=== PATIENT | male | born 1960 | race Caucasian/White ===

== ENCOUNTER 2016-05-22 19:16 | Emergency (ER) | payer OTHER ==
[2016-05-22 19:23] VITALS: BP 170/82; TEMP 98.8; BMI 23.6
[2016-05-22] MEDS ORDERED: TORADOL IM STA (20:02)
--- NOTE | 2016-05-22 20:05 | ED.PDOC ---
General ED Provider: Dr. KURT VENCES Chief Complaint: Foot Pain/Injury Stated Complaint: Been hurting in the right foot for couple days, 3 toe has open wound for 2 months. has pain and swelling in the foot today Time Seen by Physician: 20:03 Mode of Arrival: Walk-In Information Source: [facility] Documentation Reviewed and Agree: Yes Musculoskeletal Complaint Exam - Ankle/Foot Complaint/Exam Location of Injury: Reports: Right, Foot Symptoms Are: Reports: Still present Onset of Pain: Reports: Hours Initial Severity: Moderate Current Severity: Mild Location: Reports: Discrete Character: Reports: Aching, Throbbing Alleviating: Reports: Rest Aggravating: Reports: Movement, Weight bearing Able to Bear Weight: Yes Associated Signs and Symptoms: Reports: Swelling, Redness Gout Risk Factors: Reports: None Lower Extremity Findings: Present: Swelling. Absent: Abnormal contour Achilles Tendon Abnormality: No Limited Range of Motion: Present: Inversion, Eversion Differential Diagnosis: Cellulitis, Closed Fracture, Gout, Sprain Review of Systems - Review Of Systems Constitutional: Reports: No symptoms Eyes: Reports: No symptoms Ears, Nose, Mouth, Throat: Reports: No symptoms Respiratory: Reports: No symptoms Cardiac: Reports: No symptoms GI: Reports: No symptoms : Reports: No symptoms Musculoskeletal: Reports: Joint pain, Joint swelling Skin: Reports: No symptoms Neurological: Reports: No symptoms Endocrine: Reports: No symptoms Hematologic/Lymphatic: Reports: No symptoms All Other Systems: Reviewed and Negative Past Medical History - Past Medical History Previously Healthy: Yes Endocrine: Reports: DM 2, Dyslipidemia Cardiovascular: Reports: Hypertension Respiratory: Reports: None Hematological: Reports: None Gastrointestinal: Reports: None Genitourinary: Reports: None Neuro/Psych: Reports: None Musculoskeletal: Reports: Back Pain, Joint Pain Cancer: Reports: None - Surgical History General Surgical History: Reports: Unknown - Family History Family History: Reports: Unknown - Social History Smoking Status: Current every day smoker, Heavy tobacco smoker Smoking Cessation Counseling Time: > 3 min - 10 min Hx Substance Use: No Alcohol Screening: None - Immunizations Tetanus Shot up to Date: Yes Physical Exam - Physical Exam Appearance: Well-appearing Eyes: YASMEEN, EOMI, Conjunctiva clear ENT: Ears normal, Nose normal, Oropharynx normal Respiratory: Airway patent, Breath sounds clear, Breath sounds equal, Respirations nonlabored Cardiovascular: RRR, Pulses normal, No rub, No murmur GI/: Soft, Nontender, No masses, Bowel sounds normal, No Organomegaly Musculoskeletal: Limited strength, Edema Skin: Warm, Dry, Normal color Neurological: Sensation intact, Motor intact, Reflexes intact, Cranial nerves intact, Alert, Oriented Psychiatric: Affect appropriate, Mood appropriate Interpretation - Radiology Interpretation Radiology Interpretation By: ED Physician Radiology Results: Negative Critical Care Note - Critical Care Note Total Time (mins): 0 Course - Course Hematology/Chemistry: 05/22/16 20:15 05/22/16 20:15 Orders, Labs, Meds: Lab Review 05/22/16 20:15 WBC 10.39 H RBC 4.57 L Hgb 13.6 L Hct 39.8 L MCV 87.1 MCH 29.8 MCHC 34.2 RDW Coeff of Zay 12.8 Plt Count 221 Immature Gran % (Auto) 0.3 Neut % (Auto) 48.4 Lymph % (Auto) 42.3 [place] % (Auto) 6.2 Eos % (Auto) 2.4 Baso % (Auto) 0.4 Immature Gran # (Auto) 0.0 Neut # 5.0 Lymph # 4.4 H [place] # 0.6 Eos # 0.3 Baso # 0.0 Sodium 132 L Potassium 4.1 Chloride 99 Carbon Dioxide 26 Anion Gap 11.1 BUN 10 Creatinine 0.93 Estimated GFR (MDRD) 85.00 BUN/Creatinine Ratio 10.75 Glucose 228 H Uric Acid 5.1 Calcium 9.3 Total Bilirubin 0.32 AST 13 L ALT 13 Alkaline Phosphatase 91 Total Protein 7.0 Albumin 3.5 Globulin 3.5 Albumin/Globulin Ratio 1.00 Orders Category Date Time Status CBC W/ AUTO DIFF Stat LAB 05/22/16 20:15 Completed COMPREHENSIVE METABOLIC PANEL Stat LAB 05/22/16 20:15 Completed URIC ACID Stat LAB 05/22/16 20:15 Completed Ketorolac Tromethamine [Toradol] MEDS 05/22/16 20:02 Discontinued 60 mg IM ONCE STA FOOT, RIGHT 3 VIEWS Stat RADS 05/22/16 20:02 Taken Medications Discontinued Medications Generic Name Dose Route Start Last Admin Trade Name Freq PRN Reason Stop Dose Admin Ketorolac Tromethamine 60 mg 05/22/16 20:02 05/22/16 20:12 Toradol IM 05/22/16 20:03 60 mg ONCE STA Administration Vital Signs: Temp Pulse Resp BP Pulse Ox 05/22/16 19:17 98.8 F 79 20 170/82 H 96 Departure - Departure Time of Disposition: 21:42 Disposition: HOME SELF-CARE Discharge Problem: Cellulitis Qualifiers: Site of cellulitis: extremity Site of cellulitis of extremity: lower extremity Laterality: right Qualifier Code: (L03.115) Cellulitis of right lower limb Instructions: Cellulitis (ED) Condition: Stable Pt referred to PMD for follow-up: Yes Additional Instructions: pulse feeble in rt Patricia NEWSOME,RN checked with Doppler, fOOT not warm to touch, Toradol helped with pain Explained about the need to follow up with Vascular surgeon, ( he has with Dr Barragan) RISK OF OSTEOMYELITIS AND AMPUTATION DISCUSSED ADVISED TO QUITE SMOKING Allergies/Adverse Reactions: Allergies sitagliptin phosphate [From Januvia] Allergy (Intermediate, Unverified 04/28/16 12:34) Causes weakness Home Medications: Ambulatory Orders Atorvastatin Calcium [Lipitor] 10 mg PO BEDTIME 04/17/16 Blood-Glucose Meter [Contour Next] 1 each QID #1 kt 04/28/16 Aspirin [Aspirin EC] 81 mg PO DAILYWM 05/22/16 Disposition Discussed With: Patient
[2016-05-22 20:15] LABS: BASOPHILS % (AUTO) 0.4 % (0.0-3.0); EOSINOPHILS # (AUTO) 0.3 K/ul (0.0-0.7); EOSINOPHILS % (AUTO) 2.4 % (0.0-7.0); HEMATOCRIT 39.8 % (42.0-52.0); HEMOGLOBIN 13.6 g/dl (14.0-18.0); IMMATURE GRANULOCYTE % (AUTO) 0.3 % (0.0-5.0); LYMPHOCYTES # (AUTO) 4.4 K/uL (0.60-3.4); LYMPHOCYTES % (AUTO) 42.3 (10.0-50.0); MEAN CORPUSCULAR HEMOGLOBIN 29.8 pg (27.0-31.0); MEAN CORPUSCULAR HGB CONC 34.2 (31.8-35.4); MEAN CORPUSCULAR VOLUME 87.1 fl (80.0-94.0); MONOCYTES # (AUTO) 0.6 K/uL (0.4-2.0); MONOCYTES % (AUTO) 6.2 (0-10); NEUTROPHILS % (AUTO) 48.4; PLATELET COUNT 221 10^3/uL (140-440); RED BLOOD COUNT 4.57 10^6/ul (4.70-6.10); WHITE BLOOD COUNT 10.39 K/ul (4.2-10.2)
[2016-05-22 20:38] LABS: ALBUMIN 3.5 g/dL (3.4-5.0); ANION GAP 11.1; BILIRUBIN,TOTAL 0.32 mg/dL (0.00-1.20); BUN/CREATININE RATIO 10.75; CALCIUM 9.3 mg/dL (8.2-10.2); CREATININE 0.93 mg/dL (0.60-1.10); POTASSIUM 4.1 mmol/L (3.5-5.1); URIC ACID 5.1 mg/dL (2.6-7.2)
[2016-05-22] MEDS ORDERED: CLEOCIN PO STA (21:39)
--- NOTE | 2016-05-22 22:36 | DI ---
EXAM: Right foot three view HISTORY: Right foot pain COMPARISON: None FINDINGS: No fracture dislocation. Small plantar calcaneal spur. The joints are normal. No focal s oft tissue abnormality. IMPERSSION: 1. No fracture or dislocation. 2. Small plantar calcaneal spur.
== END 2016-05-22 21:50 | disposition home or self-care (01) ==
LOC: ED 19:16
DX: L03.115 Cellulitis of right lower limb (principal); I10 Essential (primary) hypertension; E11.9 Type 2 diabetes mellitus without complications; E78.5 Hyperlipidemia, unspecified; F17.210 Nicotine dependence, cigarettes, uncomplicated; Z79.899 Other long term (current) drug therapy
CPT/HCPCS: 36415; 80053; 84550; 85025; 96372; 99283

== ENCOUNTER 2016-07-07 08:56 | Outpatient (CLI) ==
[2016-07-07 09:25] LABS: BASOPHILS # (AUTO) 0.1 K/uL (0-0.2); BASOPHILS % (AUTO) 0.5 % (0.0-3.0); EOSINOPHILS # (AUTO) 0.2 K/ul (0.0-0.7); EOSINOPHILS % (AUTO) 2.3 % (0.0-7.0); HEMATOCRIT 41.3 % (42.0-52.0); HEMOGLOBIN 14.5 g/dl (14.0-18.0); IMMATURE GRANULOCYTE % (AUTO) 0.2 % (0.0-5.0); LYMPHOCYTES # (AUTO) 2.9 K/uL (0.60-3.4); LYMPHOCYTES % (AUTO) 30.8 (10.0-50.0); MEAN CORPUSCULAR HEMOGLOBIN 30.5 pg (27.0-31.0); MEAN CORPUSCULAR HGB CONC 35.1 (31.8-35.4); MEAN CORPUSCULAR VOLUME 86.8 fl (80.0-94.0); MONOCYTES # (AUTO) 0.5 K/uL (0.4-2.0); NEUTROPHILS # (AUTO) 5.8 K/ul (2.0-6.9); NEUTROPHILS % (AUTO) 61.2; PLATELET COUNT 188 10^3/uL (140-440); RED BLOOD COUNT 4.76 10^6/ul (4.70-6.10); WHITE BLOOD COUNT 9.44 K/ul (4.2-10.2)
[2016-07-07 09:35] LABS: BILIRUBIN,URINE Negative (NEGATIVE); KETONES,URINE Negative (NEGATIVE); LEUKOCYTE ESTERASE ,URINE Negative (NEGATIVE); NITRITE,URINE Negative (NEGATIVE); PH,URINE 5.5 (5-9); PROTEIN,URINE Negative (NEGATIVE); URINE, BLOOD 2+ (NEGATIVE)
[2016-07-07 09:36] LABS: ADD URINE MICROSCOPIC YES
[2016-07-07 09:45] LABS: ALBUMIN 3.6 g/dL (3.4-5.0); ALBUMIN/GLOBULIN RATIO 1.03; ANION GAP 14.5; BILIRUBIN,TOTAL 0.34 mg/dL (0.00-1.20); BUN/CREATININE RATIO 12.38; CALCIUM 9.2 mg/dL (8.2-10.2); CHOL/HDL RATIO 5.2 (4.5-6.4); CREATININE 1.05 mg/dL (0.60-1.10); POTASSIUM 4.5 mmol/L (3.5-5.1); TOTAL PROTEIN 7.1 g/dL (6.4-8.2)
== END 2016-07-07 08:57 | disposition home or self-care (01) ==
LOC: LAB 08:56
PROVIDERS: ATTEND General Practice
DX: E11.9 Type 2 diabetes mellitus without complications (principal); I10 Essential (primary) hypertension; E78.5 Hyperlipidemia, unspecified; F32.9 Major depressive disorder, single episode, unspecified; I25.10 Atherosclerotic heart disease of native coronary artery without angina pectoris; M89.9 Disorder of bone, unspecified; Z79.899 Other long term (current) drug therapy
CPT/HCPCS: 36415; 80053; 80061; 81001; 83036; 85025

== ENCOUNTER 2016-08-07 11:00 | Outpatient (RCR) ==
--- NOTE | 2016-07-26 11:57 | RS.OPPTEV2 ---
Date of Note: 07/26/16 Visit #: 1 Date of Evaluation: 07/26/16 Date of Onset/Injury/Change in Status: 05/14/16 Surgery Performed?: No Treatment Diagnosis: Back pain History of Condition/Mechanism of Injury:: Pt has had back problems for years and it has been worse and worse over time. He is diabled and states he fell 7' at a job he had in 1988 and that was when his problems began. He states now that his legs are painful and weak and he falls at least twice a day. He was referred to a neurosurgeon and MRI revealed numerous levels of disc bulging and stenosis throughout his spine. He has been referred to PT by the surgeon for evaluation and treatment. Prior Level of Function.....Patient was independent with: ADL's, Self Care, Work /Vocation, Caregiving, Ambulation/Mobility, Community Integration/Access Functional Limitations: Sleep, Self Care, ADL's, Reaching, Pushing, Pulling, Lifting, Carrying, Sitting, Standing, Bending, Squatting, Ambulation, Community Access/Integration Treatment Side (optional): Bilateral Medical History Medical History: Hypertension, Diabetes Surgical History: Cholecystectomy, Other Surgical History Comments:: Extensive vascular surgery 2 months ago of B illiac arteries and RLEs Hx Home Medications: [place] 7.5, ibuprofen, metformin,lipitor, finished steroid pack just finished 3 days ago and now he is on a med he believes in an anti- inflammatory. Pain Assessment - Pain Description Pain Location: Entire spine. Focus on lumbar spine for treatment. Pain Description: Constant pain throughout his spine. Current Pain Intensity: 7/10 Worst Pain Intensity: 10+/10 Other Comments regarding Pain:: Pt reports he feels his muscles are tearing apart in his legs R > L. He still has vascular pain as well and it is difficulty to discern where his pain is originating from the back or vascular system. Functional Outcome Measure Oswestry LBP: 33 (66% disability) - G Codes & Severity Modifier G Codes & Modifier: Mobility, Walking & Moving Around. Eval - CL. Goal - CK Source of G Code score: Oswestry LBP Scale Observation - Observation Posture: Decreased Lumbar Lordosis Gait - Gait Pattern General Gait Pattern Observation: Antalgic Gait, Decrease Weight Bear (R), Decrease Weight Shift (R), Short Stance Time (R) Gait Comments: RLE gives way intermitttently due to neuromuscular weakness. General Muscle Strength: RLE strength 3+ to 4-/5 and LLE 4/5 - ROM Lumbar Flexion: Hand reach to Mid-Thighs Sidebending to Left: Reach to Mid-thigh Sidebending to Right: Reach to Mid-thigh Lumbar Spine ROM Limitations: Pain Palpation Palpation Findings: Tenderness (Bilateral paraspinals very tight and painful to minimal palpation.) Sensation - Sensation Right Lower Extremity: Impaired Left Lower Extremity: Impaired Sensation Description: [place] Balance - Standing Balance Static Standing Balance: Normal Dynamic Standing Balance: Fair (RLE gives way due to neuromuscular weakness.) Interventions - Exercise/Activities/Manual Therapy Exercises/Activities: na Manual Therapy: na - Charges Total Direct Minutes: 45 Total Treatment Time: 45 Procedures billed for this date of service:: ALIDA Lin (High) Assessment Assessment: Chronic spine pain with lower back the greatest. He has constant pain, decreased sensation, BLE strength R > L, decreased ROM of spine and BLEs, frequent falls, difficulty with all ADLs and multiple gt deficits. Patient Education: Education of diagnosis, Body/Joint mechanics, Activity Modification (Pt was instructed to avoid bending, lifting or twisting and to stop activities increasing pain.), Education of Plan of Care Short Term Goals Goal #1: LBP intermittent Goal to be met by: 08/11/16 Goal #2: Improve sleep habits by 25% due to decreased pain. Goal to be met by: 08/11/16 Goal #3: Average LBP rating 4-5/10 Goal to be met by: 08/11/16 Goal #4: Independent in basic HEP. Goal to be met by: 08/11/16 Half-Way Goals Goal #1: BLE strength 4+ - 5/5 Goal to be met by: 09/01/16 Goal #2: Sleep has improved 50% at least. Goal to be met by: 09/01/16 Goal #3: Eliminate falling due to RLE weakness. 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
--- NOTE | 2016-07-27 11:06 | RS.OPPTDN ---
Subjective Date of Note: 07/27/16 Visit #: 2 Date of Evaluation: 07/26/16 Treatment Diagnosis: Back pain Current Subjective/complaints:: Reports pain in back and both legs,but more in the R LE ,as opposed to the L. Pain Assessment - Pain Description Pain Location: Entire spine. Focus on lumbar spine for treatment. Pain Description: Radiating, Aching Pain Description: Constant pain throughout his spine. Current Pain Intensity: 6/10 - Treatment Modality: Electrical Stim Unattended Parameters/Method Applied: 20 mins. high volt to lumbar area,channel 1 @120 pv, channel 2 @ 150 pv. Patient Position: Supine - Heat/Cryotherapy Treatment: Hot Pack (concurrent with e-stim) Interventions - Exercise/Activities/Manual Therapy Exercises/Activities: 20 mins. SKTC,DKTC,pelvic tilts,LTR,hamstring stretches. Total minutes of Exercise: 20 Manual Therapy: na Total minutes of Manual Therapy: 0 HOME EXERCISE PROGRAM: SKTC,DKTC,LTR,hamstring stretches,pelvic tilts in PAIN FREE ROM. - Charges Total Direct Minutes: 20 Total Treatment Time: 40 Procedures billed for this date of service:: hp,e-stim,ex 1 Assessment: Patient guarded due to pain today.He has excessively tight hamstrings bilaterally.He tolerates slow,guarded LTR and SKTC.He is very attentive ,motivated to improve. Patient Education: Education of diagnosis, Body/Joint mechanics, Home Exercise Program, Home Safety, Activity Modification, Education of Plan of Care Short Term Goals Goal #1: LBP intermittent Goal to be met by: 08/11/16 Goal #2: Improve sleep habits by 25% due to decreased pain. Goal to be met by: 08/11/16 Goal #3: Average LBP rating 4-5/10 Goal to be met by: 08/11/16 Goal #4: Independent in basic HEP. Goal to be met by: 08/11/16 Progress towards Goal:: Progressing [place] Goals Goal #1: BLE strength 4+ - 5/5 Goal to be met by: 09/01/16 Goal #2: Sleep has improved 50% at least. Goal to be met by: 09/01/16 Goal #3: Eliminate falling due to RLE weakness. Goal to be met by: 09/01/16 Goal #4: Oswestry LBP score 20 Goal to be met by: 09/01/16 Plan PLAN OF CARE EXPIRES ON:: 09/01/16 ORDER # VISITS AND/OR THROUGH DATE: 09/01/2016 PLAN: Continue Plan of Care
--- NOTE | 2016-08-04 11:16 | RS.OPPTDN ---
Subjective Date of Note: 08/04/16 Visit #: 3 Date of Evaluation: 07/26/16 Treatment Diagnosis: Back pain Current Subjective/complaints:: Patient reports the R leg pain is down the entire leg into the foot today,has antalgic gait entering clinic. Pain Assessment - Pain Description Pain Location: Entire spine. Focus on lumbar spine for treatment. Pain Description: Radiating, Aching Pain Description: Constant pain throughout his spine. Current Pain Intensity: 7/10 - Treatment Modality: Electrical Stim Unattended Parameters/Method Applied: 20 mins. high volt to lumbar,channel 1 and 2 # 145pv. Patient Position: Supine - Heat/Cryotherapy Treatment: Hot Pack (concurrent with e-stim) Interventions - Exercise/Activities/Manual Therapy Exercises/Activities: 20 mins. SKTC,DKTC,pelvic tilts,LTR,hamstring stretches.HEP review/body mechanics. Total minutes of Exercise: 20 Manual Therapy: na Total minutes of Manual Therapy: 0 HOME EXERCISE PROGRAM: SKTC,DKTC,LTR,hamstring stretches,pelvic tilts in PAIN FREE ROM. - Charges Total Direct Minutes: 20 Total Treatment Time: 40 Procedures billed for this date of service:: hp,e-stim,ex 1 Assessment: Patient has moderate bilateral hamstring tightness,R > L,but does respond better to stretches today.He has less antalgic gait exiting clinic.He is attentive and motivated to improve. Patient Education: Education of diagnosis, Body/Joint mechanics, Home Exercise Program, Home Safety, Activity Modification, Education of Plan of Care Short Term Goals Goal #1: LBP intermittent Goal to be met by: 08/11/16 (constant today) Progress towards Goal:: No Change Goal #2: Improve sleep habits by 25% due to decreased pain. Goal to be met by: 08/11/16 Goal #3: Average LBP rating 4-5/10 Goal to be met by: 08/11/16 Progress towards Goal:: No Change Goal #4: Independent in basic HEP. Goal to be met by: 08/11/16 Progress towards Goal:: Progressing [facility] Goals Goal #1: BLE strength 4+ - 5/5 Goal to be met by: 09/01/16 Goal #2: Sleep has improved 50% at least. Goal to be met by: 09/01/16 Goal #3: Eliminate falling due to RLE weakness. Goal to be met by: 09/01/16 Progress towards goal: Progressing Goal #4: Oswestry LBP score 20 Goal to be met by: 09/01/16 Plan PLAN OF CARE EXPIRES ON:: 09/01/16 ORDER # VISITS AND/OR THROUGH DATE: 09/01/2016 PLAN: Continue Plan of Care
--- NOTE | 2016-08-07 12:02 | RS.OPPTDN ---
Subjective Date of Note: 08/07/16 Visit #: 4 Date of Evaluation: 07/26/16 Treatment Diagnosis: Back pain Current Subjective/complaints:: Reports his back feels better today,is doing his stretches. Pain Assessment - Pain Description Pain Description: Radiating, Dull, Aching Pain Description: Constant pain throughout his spine. Current Pain Intensity: 5.5/10 - Treatment Modality: Electrical Stim Unattended Parameters/Method Applied: 20 mins. high volt to lumbar,channel 1 @ 115 pv, channel 2 @ 150 pv. Patient Position: Supine - Heat/Cryotherapy Treatment: Hot Pack (concurrent with e-stim) Interventions - Exercise/Activities/Manual Therapy Exercises/Activities: 15 mins. HEP review of previous exercises for lumbar stretching.Added yellow theraband exercises of postural pullbacks at 3 different levels,recommended 3 sets of 10 -15 reps. Total minutes of Exercise: 15 Manual Therapy: na Total minutes of Manual Therapy: 0 HOME EXERCISE PROGRAM: SKTC,DKTC,LTR,hamstring stretches,pelvic tilts in PAIN FREE ROM. - Charges Total Direct Minutes: 15 Total Treatment Time: 35 Procedures billed for this date of service:: hp,e-stim,ex 1 Assessment: Patient continues to have sciatica today in the entire R LE,but he feels it is less intense.He is compliant to HEP. Patient Education: Body/Joint mechanics, Home Exercise Program, Home Safety Patient demonstrates compliance with HEP?: Yes Short Term Goals Goal #1: LBP intermittent Goal to be met by: 08/11/16 (constant today) Progress towards Goal:: Progressing Goal #2: Improve sleep habits by 25% due to decreased pain. Goal to be met by: 08/11/16 Progress towards Goal:: Progressing Goal #3: Average LBP rating 4-5/10 Goal to be met by: 08/11/16 Progress towards Goal:: Progressing Goal #4: Independent in basic HEP. Goal to be met by: 08/11/16 Progress towards Goal:: Progressing [facility] Goals Goal #1: BLE strength 4+ - 5/5 Goal to be met by: 09/01/16 Goal #2: Sleep has improved 50% at least. Goal to be met by: 09/01/16 Goal #3: Eliminate falling due to RLE weakness. Goal to be met by: 09/01/16 Progress towards goal: Progressing Goal #4: Oswestry LBP score 20 Goal to be met by: 09/01/16 Plan PLAN OF CARE EXPIRES ON:: 09/01/16 ORDER # VISITS AND/OR THROUGH DATE: 09/01/2016 PLAN: Continue Plan of Care
== END 2016-08-11 ==
PROVIDERS: ATTEND Neurological Surgery
DX: M54.41 Lumbago with sciatica, right side (principal); G89.29 Other chronic pain; M54.2 Cervicalgia; M79.604 Pain in right leg; R20.0 Anesthesia of skin; R20.2 Paresthesia of skin

== ENCOUNTER 2016-08-31 11:00 | Outpatient (RCR) ==
--- NOTE | 2016-08-15 12:02 | RS.OPPTDN ---
Subjective Date of Note: 08/15/16 Visit #: 5 Date of Evaluation: 07/26/16 Treatment Diagnosis: Back pain Current Subjective/complaints:: Reports back and leg pain today is elevated due to long days at hospital visiting with his sister and the drive back home. Pain Assessment - Pain Description Pain Location: Entire spine. Focus on lumbar spine for treatment. Pain Description: Radiating, Dull, Aching Current Pain Intensity: 7/10 - Treatment Modality: Electrical Stim Unattended Parameters/Method Applied: 20 mins. high volt,channel 1 @ 130 pv,channel 2 @ 180 pv. to lumbar. Patient Position: Supine - Heat/Cryotherapy Treatment: Hot Pack (concurrent with e-stim) Interventions - Exercise/Activities/Manual Therapy Exercises/Activities: 25 mins. HEP review and return demo of pelvic tilts,SKTC, DKTC,90/90 hamstring stretches,piriformis stretches.Added abdominal crunches and bridging today. Total minutes of Exercise: 25 Manual Therapy: na Total minutes of Manual Therapy: 0 HOME EXERCISE PROGRAM: SKTC,DKTC,LTR,hamstring stretches,pelvic tilts in PAIN FREE ROM. - Charges Total Direct Minutes: 25 Total Treatment Time: 45 Procedures billed for this date of service:: hp,e-stim,ex 2 Assessment: Patient has improved hamstring extensibility bilaterally,improved lumbar flexibility in supine ,but continues to have R sciatica with weight bearingf.He is attentive and motivated to improve. Patient Education: Body/Joint mechanics, Home Exercise Program, Activity Modification, Education of Plan of Care Patient demonstrates compliance with HEP?: Yes Short Term Goals Goal #1: LBP intermittent Goal to be met by: 08/11/16 Progress towards Goal:: Progressing Goal #2: Improve sleep habits by 25% due to decreased pain. Goal to be met by: 08/11/16 Progress towards Goal:: Progressing Goal #3: Average LBP rating 4-5/10 Goal to be met by: 08/11/16 Progress towards Goal:: Progressing Goal #4: Independent in basic HEP. Goal to be met by: 08/11/16 Progress towards Goal:: Partially Met Nursing Home Goals Goal #1: BLE strength 4+ - 5/5 Goal to be met by: 09/01/16 Progress towards goal: Progressing Goal #2: Sleep has improved 50% at least. Goal to be met by: 09/01/16 Goal #3: Eliminate falling due to RLE weakness. Goal to be met by: 09/01/16 Progress towards goal: Progressing Goal #4: Oswestry LBP score 20 Goal to be met by: 09/01/16 Plan PLAN OF CARE EXPIRES ON:: 09/01/16 ORDER # VISITS AND/OR THROUGH DATE: 09/01/2016 PLAN: Continue Plan of Care
--- NOTE | 2016-08-17 12:54 | RS.OPPTDN ---
Subjective Date of Note: 08/17/16 Visit #: 6 Date of Evaluation: 07/26/16 Payer Source: MEDICARE Treatment Diagnosis: Back pain Current Subjective/complaints:: Reports the stretches give him temporary relief and feels more flexible,but the sciatic pain is unchanged. Pain Assessment - Pain Description Pain Location: Entire spine. Focus on lumbar spine for treatment. Pain Description: Radiating, Dull, Aching Pain Description: Constant pain throughout his spine. Current Pain Intensity: 8.5/10 - Treatment Modality: Electrical Stim Unattended Parameters/Method Applied: 20 mins. high volt,channel 1 @ 150 pv,channel 2 @ 190 pv. Patient Position: Supine - Heat/Cryotherapy Treatment: Hot Pack (concurrent wirh e-stim) Interventions - Exercise/Activities/Manual Therapy Exercises/Activities: HEP review while on modalities. Total minutes of Exercise: 0 Manual Therapy: 20 mins manual distraction to lumbar spine in hooklying position. Total minutes of Manual Therapy: 20 HOME EXERCISE PROGRAM: SKTC,DKTC,LTR,hamstring stretches,pelvic tilts in PAIN FREE ROM. - Charges Total Direct Minutes: 20 Total Treatment Time: 40 Procedures billed for this date of service:: hp,e-stim,manual 1 Assessment: Patient reports the sciatic pain is not present with initial standing today after manual distraction.He has good understanding of HEP and low back protection.He is motivated to improve.we discussed incorporating mechanical traction for lumbar spine next week to assist with pain relief. Patient Education: Education of diagnosis, Body/Joint mechanics, Home Exercise Program, Home Safety, Activity Modification, Education of Plan of Care Patient demonstrates compliance with HEP?: Yes Short Term Goals Goal #1: LBP intermittent Goal to be met by: 08/11/16 Progress towards Goal:: Progressing Goal #2: Improve sleep habits by 25% due to decreased pain. Goal to be met by: 08/11/16 Progress towards Goal:: Progressing Goal #3: Average LBP rating 4-5/10 Goal to be met by: 08/11/16 (elevated today to 8.5/10) Progress towards Goal:: Regressing Goal #4: Independent in basic HEP. Goal to be met by: 08/11/16 Progress towards Goal:: Partially Met [place] Goals Goal #1: BLE strength 4+ - 5/5 Goal to be met by: 09/01/16 Progress towards goal: Progressing Goal #2: Sleep has improved 50% at least. Goal to be met by: 09/01/16 Goal #3: Eliminate falling due to RLE weakness. Goal to be met by: 09/01/16 Progress towards goal: Progressing Goal #4: Oswestry LBP score 20 Goal to be met by: 09/01/16 Plan PLAN OF CARE EXPIRES ON:: 09/01/16 ORDER # VISITS AND/OR THROUGH DATE: 09/01/2016 PLAN: Continue Plan of Care
--- NOTE | 2016-08-21 11:59 | RS.OPPTDN ---
Subjective Date of Note: 08/21/16 Visit #: 7 Date of Evaluation: 07/26/16 Payer Source: MEDICARE Treatment Diagnosis: Back pain Current Subjective/complaints:: Patient reports relief from last session for about 1 1/2 hours,but is elevated again today. Pain Assessment - Pain Description Pain Location: Entire spine. Focus on lumbar spine for treatment. Pain Description: Radiating, Dull, Aching Pain Description: Constant pain throughout his spine. Current Pain Intensity: 8.5/10 - Heat/Cryotherapy Treatment: Hot Pack (20 mins., prior to exercises ) - Traction Treatment Method: Intermittent, Lumbar Patient Position: Supine Amount of Force Applied: 75# Hold Time: 30 secs. Rest Time: 5 secs. Duration of treatment: 10 mins. Traction Treatment Comment: Tolerates well. Interventions - Exercise/Activities/Manual Therapy Exercises/Activities: 15 mins. SKTC,DKTC,piriformis stretches,90/90 hamstring stretches. Total minutes of Exercise: 15 Manual Therapy: N/A Total minutes of Manual Therapy: 0 HOME EXERCISE PROGRAM: SKTC,DKTC,LTR,hamstring stretches,pelvic tilts in PAIN FREE ROM. - Charges Total Direct Minutes: 15 Total Treatment Time: 45 Procedures billed for this date of service:: hp,ex,traction Assessment: Patient has improved hamstring extensibility ,with the R sdie still tighter than the L,as the sciatic pain is also on the R.He is compliant to HEP.He tolerates the traction well today,discussed for him to monitor how long his relief remains after today's session on the lumbar traction. Patient Education: Education of diagnosis, Body/Joint mechanics, Home Exercise Program, Home Safety, Activity Modification, Education of Plan of Care Patient demonstrates compliance with HEP?: Yes Short Term Goals Goal #1: LBP intermittent Goal to be met by: 08/11/16 Progress towards Goal:: Progressing Goal #2: Improve sleep habits by 25% due to decreased pain. Goal to be met by: 08/11/16 Progress towards Goal:: Progressing Goal #3: Average LBP rating 4-5/10 Goal to be met by: 08/11/16 (elevated today to 8.5/10) Progress towards Goal:: No Change Goal #4: Independent in basic HEP. Goal to be met by: 08/11/16 Progress towards Goal:: Partially Met Feed Preparation Operator Goals Goal #1: BLE strength 4+ - 5/5 Goal to be met by: 09/01/16 Progress towards goal: Progressing Goal #2: Sleep has improved 50% at least. Goal to be met by: 09/01/16 Goal #3: Eliminate falling due to RLE weakness. Goal to be met by: 09/01/16 Progress towards goal: Progressing Goal #4: Oswestry LBP score 20 Goal to be met by: 09/01/16 Plan PLAN OF CARE EXPIRES ON:: 09/01/16 ORDER # VISITS AND/OR THROUGH DATE: 09/01/2016 PLAN: Continue Plan of Care
--- NOTE | 2016-08-24 11:57 | RS.OPPTDN ---
Subjective Date of Note: 08/24/16 Visit #: 8 Date of Evaluation: 07/26/16 Payer Source: MEDICARE Treatment Diagnosis: Back pain Current Subjective/complaints:: Patient reports the lumbar traction gave him relief for about 2 1/2 hours. Pain Assessment - Pain Description Pain Location: Entire spine. Focus on lumbar spine for treatment. Pain Description: Radiating, Dull, Aching Current Pain Intensity: 6/10 - Heat/Cryotherapy Treatment: Hot Pack (20 mins. to lumbar prior to exercises and traction.) - Traction Treatment Method: Mechanical, Intermittent, Lumbar Patient Position: Supine Amount of Force Applied: 75# Hold Time: 30 secs. Rest Time: 5 secs. Duration of treatment: 15 mins. Traction Treatment Comment: Tolerates well. Interventions - Exercise/Activities/Manual Therapy Exercises/Activities: 15 mins. SKTC,DKTC,piriformis stretches,90/90 hamstring stretches. Total minutes of Exercise: 15 Manual Therapy: N/A Total minutes of Manual Therapy: 0 HOME EXERCISE PROGRAM: SKTC,DKTC,LTR,hamstring stretches,pelvic tilts in PAIN FREE ROM. - Charges Total Direct Minutes: 15 Total Treatment Time: 50 Procedures billed for this date of service:: hp,ex,traction Assessment: Patient reports improved flexibibility in his LE's and back ,still does have pain free periods ,but the intensity and duration lessens at times.He is compliant to HEP.The sciatica in the R LE is more noticeable below the knee, not in the hip or thigh as much today. Patient Education: Education of diagnosis, Body/Joint mechanics, Home Exercise Program, Home Safety, Activity Modification, Education of Plan of Care Patient demonstrates compliance with HEP?: Yes Short Term Goals Goal #1: LBP intermittent Goal to be met by: 08/11/16 (constant today) Progress towards Goal:: No Change Goal #2: Improve sleep habits by 25% due to decreased pain. Goal to be met by: 08/11/16 Progress towards Goal:: Progressing Goal #3: Average LBP rating 4-5/10 Goal to be met by: 08/11/16 (6/10 today) Progress towards Goal:: Progressing Goal #4: Independent in basic HEP. Goal to be met by: 08/11/16 Progress towards Goal:: Met Steel Estimator Goals Goal #1: BLE strength 4+ - 5/5 Goal to be met by: 09/01/16 Progress towards goal: Progressing Goal #2: Sleep has improved 50% at least. Goal to be met by: 09/01/16 Progress towards goal: No Change Goal #3: Eliminate falling due to RLE weakness. Goal to be met by: 09/01/16 (reports a couple of falls) Progress towards goal: No Change Goal #4: Oswestry LBP score 20 Goal to be met by: 09/01/16 Plan PLAN OF CARE EXPIRES ON:: 09/01/16 ORDER # VISITS AND/OR THROUGH DATE: 09/01/2016 PLAN: Continue Plan of Care
--- NOTE | 2016-08-29 12:47 | RS.OPPTDN ---
Subjective Date of Note: 08/29/16 Visit #: 9 Date of Evaluation: 07/26/16 Payer Source: MEDICARE Treatment Diagnosis: Back pain Current Subjective/complaints:: Reports he slipped while walking this morning and aggravated his back more.The lumbar traction has given him relief for about 2 to 2 1/2 hours. Pain Assessment - Pain Description Pain Location: Entire spine. Focus on lumbar spine for treatment. Pain Description: Radiating, Dull, Aching Pain Description: Constant pain throughout his spine. Current Pain Intensity: 8.5/10 - Heat/Cryotherapy Treatment: Hot Pack (20 mins. prior to exercise and lumbar traction) - Traction Treatment Method: Mechanical, Intermittent, Lumbar Patient Position: Supine Amount of Force Applied: 75# Hold Time: 30 secs. Rest Time: 5 secs. Duration of treatment: 20 mins. Traction Treatment Comment: Tolerates well. Interventions - Exercise/Activities/Manual Therapy Exercises/Activities: 20 mins. SKTC,DKTC,piriformis stretches,90/90 hamstring stretches. Total minutes of Exercise: 20 Manual Therapy: N/A Total minutes of Manual Therapy: 0 HOME EXERCISE PROGRAM: SKTC,DKTC,LTR,hamstring stretches,pelvic tilts in PAIN FREE ROM. - Charges Total Direct Minutes: 20 Total Treatment Time: 60 Procedures billed for this date of service:: hp,exercise,traction Assessment: Patient has improved lumbar flexibility,along with improved L LE extensibility ,especially in the hamstring group.He continues to have moderate tightness with the L piriformis stretches,but less intensity ofmpain as the stretches progresses.He reports the back pain elevates as the day progresses,in relation to how long he is on his feet.The incedent of slipping today,patient feels this is possibly due to the R knee buckling. Patient Education: Education of diagnosis, Body/Joint mechanics, Home Exercise Program, Home Safety, Activity Modification, Education of Plan of Care Patient demonstrates compliance with HEP?: Yes Short Term Goals Goal #1: LBP intermittent Goal to be met by: 08/11/16 (constant today) Progress towards Goal:: No Change Goal #2: Improve sleep habits by 25% due to decreased pain. Goal to be met by: 08/11/16 Progress towards Goal:: Progressing Goal #3: Average LBP rating 4-5/10 Goal to be met by: 08/11/16 (8.5 today) Progress towards Goal:: Regressing Goal #4: Independent in basic HEP. Goal to be met by: 08/11/16 Progress towards Goal:: Met Waste Water Operator Goals Goal #1: BLE strength 4+ - 5/5 Goal to be met by: 09/01/16 Progress towards goal: Partially Met Goal #2: Sleep has improved 50% at least. Goal to be met by: 09/01/16 Goal #3: Eliminate falling due to RLE weakness. Goal to be met by: 09/01/16 (sipped today ,but did not fall) Goal #4: Oswestry LBP score 20 Goal to be met by: 09/01/16 Plan PLAN OF CARE EXPIRES ON:: 09/01/16 ORDER # VISITS AND/OR THROUGH DATE: 09/01/2016 PLAN: Plan for Discharge
--- NOTE | 2016-08-31 13:05 | RS.OPPTDN ---
Subjective Date of Note: 08/31/16 Visit #: 10 Date of Evaluation: 07/26/16 Payer Source: MEDICARE Treatment Diagnosis: Back pain Current Subjective/complaints:: Patient reports his pain is less today,but feels temporary relief only.He reports doing his exercises 3x/day as tolerated.Also reports progress is slow.we discussed the D/C plan today,and he feels he can continue the exercises on his own. Pain Assessment - Pain Description Pain Location: Entire spine. Focus on lumbar spine for treatment. Pain Description: Radiating, Dull, Aching Pain Description: Constant pain throughout his spine. Current Pain Intensity: 5/10 - Heat/Cryotherapy Treatment: Hot Pack (20 mins. in supine prior to exercises.) Interventions - Exercise/Activities/Manual Therapy Exercises/Activities: 30 mins. total of HEP review and return demo of each exercise,consisting of pelvic tilts,SKTC,DKTC,90/90 hamstring stretches, piriformis stretches.Reviewed low back protection/body mechanics ,and postural awareness. Manual Therapy: N/A HOME EXERCISE PROGRAM: SKTC,DKTC,LTR,hamstring stretches,pelvic tilts in PAIN FREE ROM. - Charges Total Direct Minutes: 30 Total Treatment Time: 50 Procedures billed for this date of service:: hp,ex 2 Assessment: Patient has improved knowledge of HEP, low back protection , postural awareness.He has good return demo of each exercise.He agrees with D/C plan today as he no longer requires skilled therapy.His R LE strength is the same as when evaluated ,continues to report sciatic pain. Patient Education: Body/Joint mechanics, Home Exercise Program, Home Safety, Activity Modification, Education of Plan of Care Patient demonstrates compliance with HEP?: Yes Short Term Goals Goal #1: LBP intermittent Goal to be met by: 08/11/16 (constant today,but less intense) Progress towards Goal:: No Change Goal #2: Improve sleep habits by 25% due to decreased pain. Goal to be met by: 08/11/16 Progress towards Goal:: Progressing Goal #3: Average LBP rating 4-5/10 Goal to be met by: 08/11/16 (5 today) Progress towards Goal:: Progressing Goal #4: Independent in basic HEP. Goal to be met by: 08/11/16 Progress towards Goal:: Met Halfway Goals Goal #1: BLE strength 4+ - 5/5 Goal to be met by: 09/01/16 (L LE met,no change in the R LE) Progress towards goal: Partially Met Goal #2: Sleep has improved 50% at least. Goal to be met by: 09/01/16 Goal #3: Eliminate falling due to RLE weakness. Goal to be met by: 09/01/16 Progress towards goal: Progressing Goal #4: Oswestry LBP score 20 Goal to be met by: 09/01/16 (3 point improvement) Progress towards goal: No Change (no significant change) Plan PLAN OF CARE EXPIRES ON:: 09/01/16 ORDER # VISITS AND/OR THROUGH DATE: 09/01/2016 PLAN: Plan for Discharge
--- NOTE | 2016-09-01 14:27 | RS.OPPTDC ---
Date of Discharge: 08/31/16 Date of Evaluation: 07/26/16 Number of Visits: 10 Treatment Diagnosis: Back pain Current Complaints/Gains: Patient reports slowly improving and is performing HEP 3 Xday. Reports he is sleeping better at times. Functional Outcome Measure Oswestry LBP: 60 - G Codes & Severity Modifier G Codes & Modifier: Mob goal CK. Mob D/C CL Source of G Code score: Oswestry LBP (6 points better than at initial evaluation.) Interventions - Exercise/Activities/Manual Therapy Exercises/Activities: Na Manual Therapy: N/A HOME EXERCISE PROGRAM: SKTC,DKTC,LTR,hamstring stretches,pelvic tilts in PAIN FREE ROM. - Objective Findings Observations,measurements,etc.: Patient shows LLE strength of 4+ to 5-/5 , RLE strength of 3+ to 4-/5. - Charges Total Direct Minutes: NA Total Treatment Time: NA Procedures billed for this date of service:: NA Assessment Assessment: Patient reports slow improvement of less pain. States he has times of better sleep. He demonstrates only a 6 point improvement on Oswestry LBP scale over 10 therapy sessions. Patient appears to have met his maximum potential with therapy at this time. Short Term Goals Goal #1: LBP intermittent Goal to be met by: 08/11/16 (constant today,but less intense) Progress towards Goal:: Not Met Goal #2: Improve sleep habits by 25% due to decreased pain. Goal to be met by: 08/11/16 Progress towards Goal:: Partially Met Goal #3: Average LBP rating 4-5/10 Goal to be met by: 08/11/16 (5 today) Progress towards Goal:: Partially Met Goal #4: Independent in basic HEP. Goal to be met by: 08/11/16 Progress towards Goal:: Met Netbackup Administrator Goals Goal #1: BLE strength 4+ - 5/5 Goal to be met by: 09/01/16 (L LE met,no change in the R LE) Progress towards goal: Partially Met Goal #2: Sleep has improved 50% at least. Goal to be met by: 09/01/16 Progress towards goal: Not Met Goal #3: Eliminate falling due to RLE weakness. Goal to be met by: 09/01/16 Progress towards goal: Not Met Goal #4: Oswestry LBP score 20 Goal to be met by: 09/01/16 (6 point improvement) Progress towards goal: Not Met (no significant change) Plan Reason for Discharge:: Maximum Potential Met
== END 2016-09-10 ==
PROVIDERS: ATTEND Neurological Surgery
DX: M54.41 Lumbago with sciatica, right side (principal); M54.2 Cervicalgia; G89.29 Other chronic pain; M79.604 Pain in right leg; R20.0 Anesthesia of skin; R20.2 Paresthesia of skin

== ENCOUNTER 2016-09-18 09:00 | Outpatient (RCR) ==
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
--- NOTE | 2016-09-13 11:09 | RS.OPPTDN ---
Subjective Date of Note: 09/13/16 Visit #: 2 Date of Evaluation: 09/11/16 Payer Source: MEDICARE Treatment Diagnosis: Neck pain Current Subjective/complaints:: Patient says the R side of his neck is more problematic than the L. Says he has only has about 2 to 3 hours of sleep every night. He says he is hopeful PT will help with his neck pain. Pain Assessment - Pain Description Pain Location: Neck pain Pain Description: Constant pain throughout his spine. Current Pain Intensity: 8/10 - Treatment Modality: Ultrasound Parameters/Method Applied: 1.5 w/cm2 x 12 mins to bilateral UT and lower cerv paraspinals with focus to the R side Patient Position: Sitting - Heat/Cryotherapy Treatment: Hot Pack (cervical x 20 mins in supine) Interventions - Exercise/Activities/Manual Therapy Exercises/Activities: Patient received passive stretching to SB and rotation bilaterally. He performs shoulder shrugs and scap adduction. Discussed postural mechanics and techniques to improve neck strain. Total minutes of Exercise: 15 Manual Therapy: N/A HOME EXERCISE PROGRAM: cervical retraction - Charges Total Direct Minutes: 27 Total Treatment Time: 47 Procedures billed for this date of service:: hp, u/s, ex Assessment: Patient experiencing more R sided neck pain than L and sleep is disturbed greatly due to pain. He manuel u/s and therex well with admitting soreness only with L SB/rotation. Attentive to postural mechanics and HEP review. He should benefit from further modalities and therex. Patient Education: Education of diagnosis, Body/Joint mechanics, Home Exercise Program, Home Safety, Activity Modification, Education of Plan of Care Comments: Initiated HEP today Short Term Goals Goal #1: Patient to report right UE symptoms no longer constant. Goal to be met by: 09/26/16 Goal #2: Patient to report headaches decreased to once a week. Goal to be met by: 09/26/16 Goal #3: Cervical rotation bilaterally WFL's with minimal discomfort. Goal to be met by: 09/26/16 Goal #4: Neck pain <6/10 at rest. Goal to be met by: 09/26/16 Communications Agent Goals Goal #1: Pt knows HEP and to continue ex's to maintain functional level at D/C. Goal to be met by: 10/17/16 Goal #2: Score on Neck Disability Index improved to <19% impairment. Goal to be met by: 10/17/16 Goal #3: Patient able to sleep 6 hours without interruption from neck pain. Goal to be met by: 10/17/16 Goal #4: Patient to demonstrate good postural awareness. Goal to be met by: 10/17/16 Plan PLAN OF CARE EXPIRES ON:: 10/17/16 ORDER # VISITS AND/OR THROUGH DATE: 10/17/16 PLAN: Continue Plan of Care
--- NOTE | 2016-09-18 10:40 | RS.OPPTDN ---
Subjective Date of Note: 09/18/16 Visit #: 3 Date of Evaluation: 09/11/16 Payer Source: MEDICARE Treatment Diagnosis: Neck pain Current Subjective/complaints:: Patient says he has been having intermittent neck pain and PORTILLO's remain fairly constant. He says neck pain is "not that bad today." Pain Assessment - Pain Description Pain Location: Neck pain Pain Description: Constant pain throughout his spine. Current Pain Intensity: 8/10 - Treatment Modality: Ultrasound Parameters/Method Applied: continuous @ 1.5 w/cm2 x 10 mins primarily to the R UT AFTER traction Patient Position: Supine - Heat/Cryotherapy Treatment: Hot Pack (cervical x 20 mins supine) - Traction Treatment Method: Mechanical, Intermittent, Cervical Patient Position: Supine Amount of Force Applied: 15 Hold Time: 25 Rest Time: 5 Duration of treatment: 12 Interventions - Exercise/Activities/Manual Therapy Exercises/Activities: Reviewed HEP Manual Therapy: N/A HOME EXERCISE PROGRAM: cervical retraction - Charges Total Direct Minutes: 10 Total Treatment Time: 40 Procedures billed for this date of service:: hp, u/s, mechanical traction Assessment: Patient began cervical traction today due to radicular symptoms and PORTILLO's. He manuel well with 15-16#. He should further improve with progression of traction and therex. Patient Education: Education of diagnosis, Body/Joint mechanics, Home Exercise Program, Home Safety, Activity Modification, Education of Plan of Care Patient demonstrates compliance with HEP?: Yes Short Term Goals Goal #1: Patient to report right UE symptoms no longer constant. Goal to be met by: 09/26/16 Goal #2: Patient to report headaches decreased to once a week. Goal to be met by: 09/26/16 Goal #3: Cervical rotation bilaterally WFL's with minimal discomfort. Goal to be met by: 09/26/16 Goal #4: Neck pain <6/10 at rest. Goal to be met by: 09/26/16 Tablet Tester Goals Goal #1: Pt knows HEP and to continue ex's to maintain functional level at D/C. Goal to be met by: 10/17/16 Goal #2: Score on Neck Disability Index improved to <19% impairment. Goal to be met by: 10/17/16 Goal #3: Patient able to sleep 6 hours without interruption from neck pain. Goal to be met by: 10/17/16 Goal #4: Patient to demonstrate good postural awareness. Goal to be met by: 10/17/16 Plan PLAN OF CARE EXPIRES ON:: 10/17/16 ORDER # VISITS AND/OR THROUGH DATE: 10/17/16
--- NOTE | 2016-09-21 09:29 | RS.CXNS ---
Date of scheduled appointment: 09/21/16 Type: Cancel
--- NOTE | 2016-10-18 15:50 | RS.QUICKDC ---
Discharge from PT Date of Discharge: 10/18/16 Number of Visits: 3 Reason for Discharge: Patient had cancelled his scheduled appt and did not contact us to further POC. He had received treatment of moist heat, u/s, and mechanical cervical traction. He received HEP. He reported slight decrease in neck pain, but continues with constant PORTILLO's. No goals met at this time. See daily notes for specific treatment. Gcodes: Body position D/c: CK, goal CI
== END 2016-10-11 ==
PROVIDERS: ATTEND Neurological Surgery
DX: M54.41 Lumbago with sciatica, right side (principal); M89.29 Other disorders of bone development and growth, multiple sites; M54.2 Cervicalgia; M79.604 Pain in right leg; R20.0 Anesthesia of skin; R20.2 Paresthesia of skin

== ENCOUNTER 2016-11-07 11:57 | Outpatient (CLI) ==
[2016-11-07 13:42] LABS: BILIRUBIN,URINE Negative (NEGATIVE); KETONES,URINE Negative (NEGATIVE); LEUKOCYTE ESTERASE ,URINE Negative (NEGATIVE); NITRITE,URINE Negative (NEGATIVE); PROTEIN,URINE Negative (NEGATIVE); URINE, BLOOD 1+ (NEGATIVE)
[2016-11-07 13:45] LABS: BASOPHILS % (AUTO) 0.4 % (0.0-3.0); EOSINOPHILS # (AUTO) 0.2 K/ul (0.0-0.7); HEMATOCRIT 40.2 % (42.0-52.0); HEMOGLOBIN 14.2 g/dl (14.0-18.0); IMMATURE GRANULOCYTE % (AUTO) 0.8 % (0.0-5.0); LYMPHOCYTES # (AUTO) 2.8 K/uL (0.60-3.4); LYMPHOCYTES % (AUTO) 36.6 (10.0-50.0); MEAN CORPUSCULAR HEMOGLOBIN 31.3 pg (27.0-31.0); MEAN CORPUSCULAR HGB CONC 35.3 (31.8-35.4); MEAN CORPUSCULAR VOLUME 88.7 fl (80.0-94.0); MONOCYTES # (AUTO) 0.5 K/uL (0.4-2.0); MONOCYTES % (AUTO) 6.1 (0-10); NEUTROPHILS # (AUTO) 4.1 K/ul (2.0-6.9); NEUTROPHILS % (AUTO) 53.1; PLATELET COUNT 202 10^3/uL (140-440); RED BLOOD COUNT 4.53 10^6/ul (4.70-6.10); WHITE BLOOD COUNT 7.74 K/ul (4.2-10.2)
[2016-11-07 13:51] LABS: ADD URINE MICROSCOPIC YES
[2016-11-07 14:17] LABS: ALBUMIN 3.8 g/dL (3.4-5.0); ALBUMIN/GLOBULIN RATIO 1.12; ANION GAP 15.1; BILIRUBIN,TOTAL 0.42 mg/dL (0.00-1.20); BUN/CREATININE RATIO 9.18; CALCIUM 9.2 mg/dL (8.2-10.2); CHOL/HDL RATIO 3.8 (4.5-6.4); CREATININE 0.98 mg/dL (0.60-1.10); PHOSPHORUS 3.1 mg/dL (2.5-4.9); POTASSIUM 4.1 mmol/L (3.5-5.1); TOTAL PROTEIN 7.2 g/dL (6.4-8.2)
== END 2016-11-07 11:58 | disposition home or self-care (01) ==
LOC: LAB 11:57
PROVIDERS: ATTEND General Practice
DX: E11.9 Type 2 diabetes mellitus without complications (principal); I10 Essential (primary) hypertension; E78.5 Hyperlipidemia, unspecified; E55.9 Vitamin D deficiency, unspecified; I25.10 Atherosclerotic heart disease of native coronary artery without angina pectoris; Z79.899 Other long term (current) drug therapy; Z72.0 Tobacco use
CPT/HCPCS: 36415; 80053; 80061; 81001; 82306; 83036; 84100; 85025

== ENCOUNTER 2017-03-07 12:36 | Outpatient (CLI) ==
[2017-03-07 16:06] LABS: BASOPHILS % (AUTO) 0.3 % (0.0-3.0); EOSINOPHILS # (AUTO) 0.3 K/ul (0.0-0.7); EOSINOPHILS % (AUTO) 2.9 % (0.0-7.0); HEMATOCRIT 42.8 % (42.0-52.0); HEMOGLOBIN 15.1 g/dl (14.0-18.0); IMMATURE GRANULOCYTE % (AUTO) 0.3 % (0.0-5.0); MEAN CORPUSCULAR HEMOGLOBIN 30.7 pg (27.0-31.0); MEAN CORPUSCULAR HGB CONC 35.3 (31.8-35.4); MONOCYTES # (AUTO) 0.5 K/uL (0.4-2.0); MONOCYTES % (AUTO) 5.8 (0-10); NEUTROPHILS # (AUTO) 4.8 K/ul (2.0-6.9); NEUTROPHILS % (AUTO) 55.7; PLATELET COUNT 234 10^3/uL (140-440); RED BLOOD COUNT 4.92 10^6/ul (4.70-6.10); WHITE BLOOD COUNT 8.58 K/ul (4.2-10.2)
[2017-03-07 16:08] LABS: BILIRUBIN,URINE Negative (NEGATIVE); KETONES,URINE Negative (NEGATIVE); LEUKOCYTE ESTERASE ,URINE Negative (NEGATIVE); NITRITE,URINE Negative (NEGATIVE); PROTEIN,URINE Negative (NEGATIVE); URINE, BLOOD Trace-lysed (NEGATIVE)
[2017-03-07 16:09] LABS: ADD URINE MICROSCOPIC YES
[2017-03-07 16:17] LABS: ALBUMIN 3.9 g/dL (3.4-5.0); ALBUMIN/GLOBULIN RATIO 0.93; ANION GAP 14.2; BILIRUBIN,TOTAL 0.39 mg/dL (0.00-1.20); BUN/CREATININE RATIO 12.3; CALCIUM 9.6 mg/dL (8.2-10.2); CREATININE 1.3 mg/dL (0.60-1.10); POTASSIUM 4.2 mmol/L (3.5-5.1); TOTAL PROTEIN 8.1 g/dL (6.4-8.2)
== END 2017-03-07 12:37 | disposition home or self-care (01) ==
LOC: LAB 12:36
PROVIDERS: ATTEND General Practice
DX: E78.5 Hyperlipidemia, unspecified (principal); E11.9 Type 2 diabetes mellitus without complications; I10 Essential (primary) hypertension; Z79.899 Other long term (current) drug therapy
CPT/HCPCS: 36415; 80053; 81001; 83036; 85025

== ENCOUNTER 2017-07-11 19:32 | Emergency (ER) ==
[2017-07-11 19:43] VITALS: BP 195/92; TEMP 99.5; BMI 25.6
--- NOTE | 2017-07-11 20:02 | ED.PDOC ---
General ED Provider: Dr. VERA HARRIS-ER Chief Complaint: Knee Pain/Injury Stated Complaint: i fell yesterday and hurt my knee Time Seen by Physician: 20:00 Mode of Arrival: Walk-In Information Source: Patient Exam Limitations: No limitations [facility] and Triage Documentation Reviewed and Agree: Yes Reviewed sepsis parameters & appropriate labs ordered?: Yes System Inflammatory Response Syndrome: Not Applicable Sepsis Protocol: For patient's 13 years and over: Temp is 96.8 and below OR 101 and greater Pulse >90 BPM Resp >20/minute Acutely Altered Mental Status Are patient's symptoms suggestive of a new infection, such as: -Pneumonia -Skin, Soft Tissue -Endocarditis -UTI -Bone, Joint Infection -Implantable Device -Acute Abdominal Infection -Wound Infection -Meningitis -Blood Stream Catheter Infection -Unknown Musculoskeletal Complaint Exam - Knee Pain Complaint/Exam Mechanism of Injury: Reports: Trauma Onset/Duration: 24 hrs Symptoms Are: Still present Onset of Pain: Reports: Immediate Initial Severity: Mild Current Severity: Mild Location: Reports: Discrete (left knee) Character: Reports: Dull, Aching Aggravating: Reports: Movement, Weight bearing, Prolonged standing Associated Signs and Symptoms: Reports: Swelling Able to Bear Weight: No Septic Arthritis Risk Factors: Reports: None Gout Risk Factors: Reports: None Knee Findings: Present: Swelling, Tenderness, Limited range of motion, Effusion Zack Test Positive: No Omero Test Positive: No Limited Range of Motion: Present: Active, Passive Differential Diagnoses: Contusion, Closed Fracture, Sprain, Strain Review of Systems - Review Of Systems Constitutional: Reports: No symptoms Eyes: Reports: No symptoms Ears, Nose, Mouth, Throat: Reports: No symptoms Respiratory: Reports: No symptoms Cardiac: Reports: No symptoms GI: Reports: No symptoms : Reports: No symptoms Musculoskeletal: Reports: Joint pain, Joint swelling Skin: Reports: No symptoms Neurological: Reports: No symptoms Endocrine: Reports: No symptoms Hematologic/Lymphatic: Reports: No symptoms All Other Systems: Reviewed and Negative Past Medical History - Past Medical History Previously Healthy: Yes Endocrine: Reports: DM 2, Dyslipidemia Cardiovascular: Reports: Hypertension Respiratory: Reports: None Hematological: Reports: None Gastrointestinal: Reports: None Genitourinary: Reports: None Neuro/Psych: Reports: None Musculoskeletal: Reports: Back Pain, Joint Pain Cancer: Reports: None - Surgical History General Surgical History: Reports: Unknown - Family History Family History: Reports: Unknown - Social History Smoking Status: Current every day smoker, Heavy tobacco smoker Hx Substance Use: No Alcohol Screening: Occasionally - Immunizations Tetanus Shot up to Date: No Physical Exam - Physical Exam Appearance: Well-appearing Eyes: YASMEEN, EOMI, Conjunctiva clear ENT: Ears normal, Nose normal, Oropharynx normal Neck: Supple Respiratory: Airway patent, Breath sounds clear, Breath sounds equal, Respirations nonlabored Cardiovascular: RRR, Pulses normal, No rub, No murmur GI/: Soft, Nontender, No masses, Bowel sounds normal, No Organomegaly Musculoskeletal: Limited ROM Skin: Warm, Dry, Normal color Neurological: Sensation intact, Motor intact, Reflexes intact, Cranial nerves intact, Alert, Oriented Psychiatric: Affect appropriate, Mood appropriate Interpretation - Radiology Interpretation Radiology Results: Positive Critical Care Note - Critical Care Note Total Time (mins): 0 Course - Course Orders, Labs, Meds: Orders Category Date Time Status CRUTCHES [ED CRUTCHES] .ONCE EMERGENCY 07/11/17 19:59 Active ED SPLINT APPLICATION .ONCE EMERGENCY 07/11/17 19:59 Active KNEE, LEFT 4 VIEWS Stat RADS 07/11/17 19:35 Taken Vital Signs: Temp Pulse Resp BP Pulse Ox 07/11/17 19:33 99.5 F 102 H 16 195/92 H 96 Departure - Departure Time of Disposition: 20:02 Disposition: HOME SELF-CARE Discharge Problem: Injury of knee Patellar fracture Qualifiers: Encounter type: initial encounter Fracture type: closed Fracture morphology: unspecified fracture morphology Fracture alignment: nondisplaced Laterality: left Qualified Code(s): S82.002A - Unspecified fracture of left patella, initial encounter for closed fracture Instructions: Knee Pain (ED) Condition: Good Pt referred to PMD for follow-up: Yes IPMP verified?: No Additional Instructions: --stay in immobilizer--use crutches--nonweight bearing--keep appt wthiren valdez tomorrow--keep appt with pain management--consider ortho referrral Allergies/Adverse Reactions: Allergies sitagliptin phosphate [From Januvia] Allergy (Intermediate, Unverified 11/10/16 10:55) Causes weakness Home Medications: Ambulatory Orders Atorvastatin Calcium [Lipitor] 10 mg PO BEDTIME 04/17/16 Blood-Glucose Meter [Contour Next] 1 each MC QID #1 kt 04/28/16 Aspirin [Aspirin EC] 81 mg PO DAILYWM 05/22/16 Clindamycin HCl 300 mg PO TID #15 capsule 05/22/16 Oxycodone HCl/Acetaminophen [Oxycodon-Acetaminophen 7.5-325] 1 each PO TID #90 tab-cap 04/27/17 Pregabalin [Lyrica] 75 mg PO BID #60 tab-cap 04/27/17 Disposition Discussed With: Patient, Family
--- NOTE | 2017-07-11 20:05 | DI ---
EXAM: Left knee four views HISTORY: Knee injury COMPARISON: None FINDINGS: Probable nondisplaced fracture of the patella, only seen on the sunrise view. Small retro patellar osteophytes. The medial, lateral, and patellofemoral compartments are normal in height. Mode rate joint effusion. Anterior soft tissue swelling. Mild atherosclerotic vascular calcification. IMPERSSION: 1. Probable nondisplaced fracture of the patella. 2. Moderate joint effusion. 3. Mild patellofemoral osteoarthritis. Report faxed
== END 2017-07-11 20:20 | disposition home or self-care (01) ==
LOC: ED 19:32
DX: S82.002A Unspecified fracture of left patella, initial encounter for closed fracture (principal); W19.XXXA Unspecified fall, initial encounter; F17.210 Nicotine dependence, cigarettes, uncomplicated
CPT/HCPCS: 99282

== ENCOUNTER 2017-07-12 11:51 | Outpatient (CLI) ==
[2017-07-11 19:43] VITALS: BMI 25.6
== END 2017-07-12 11:52 | disposition home or self-care (01) ==
LOC: LAB 11:51
PROVIDERS: ATTEND General Practice
DX: E78.5 Hyperlipidemia, unspecified (principal); I10 Essential (primary) hypertension; E10.40 Type 1 diabetes mellitus with diabetic neuropathy, unspecified; E10.9 Type 1 diabetes mellitus without complications; I25.10 Atherosclerotic heart disease of native coronary artery without angina pectoris; R31.9 Hematuria, unspecified; Z72.0 Tobacco use; Z79.899 Other long term (current) drug therapy
CPT/HCPCS: 36415; 80053; 80061; 81001; 83036; 84443; 85025; 93005; 93010

== ENCOUNTER 2017-07-20 06:16 | Outpatient (CLI) ==
[2017-07-20] MEDS ORDERED: DOBUTAMINE 250 ML IV ONE (07:15)
[2017-07-20] MEDS ORDERED: ATROPINE SULFATE PFS ONE (07:16)
--- NOTE | 2017-07-23 12:05 | DOBSTECHO ---
Ordering Physician: DR. KAREN VENCES Date of Test: 07/20/17 Reason for Examination: CAD, SURGICAL CLEARANCE, HYPERTENSION, DM, HX CO Current Medications: CILOSTAZOL, PANTOPRAZOLE, CYCLOBENZAPRINE, OXYCODONE, LYRICA, LISINOPRIL, LANTUS Height: 72" Weight: 188 LBS Target Heart Rate: 140/165 S-T Segment Stage Time HR BPM BP MMHG Rhythm +/- Elevation Depression Comments/ Symptoms Control Sitting 79 150/88 SR X NONE Dobutamine 250mg/D5W 5cmg/KG/mn 10cmg/KG/mn 3 MIN 98 160/72 SR X NONE 15cmg/KG/mn 2 MIN 102 152/64 SR X NONE 20cmg/KG/mn 2 MIN 111 SR X NONE 25cmg/KG/mn 2 MIN 115 148/64 SR X NONE 30cmg/KG/mn 2 MIN 121 122/58 SR X NONE 35cmg/KG/mn 2 MIN 122 122/68 SR X NONE 40cmg/KG/mn 2:19 125 SR X NONE Time: 4 MIN HR B/P Time: 10 MIN HR B/P Time: 17 MIN HR B/P Recovery 117 122/68 Recovery 105 28/80 Recovery 88 Total Time: 15:19 Maximum Heart Rate Reached: 125 Interpretation: 1. NO EVIDENCE OF ISCHEMIA BY ST-T WAVE CHANGES FROM HEART RATE 80 BPM TO 125 BPM 2. NO CHEST PAIN OR DISCOMFORT 3. MILDLY HYPOKINETIC LEFT VENTRICLE AT REST AND IMPROVED LEFT VENTRICULAR CONTRACTILITY WITH DOBUTAMINE INFUSION MTDD
--- NOTE | 2017-07-23 12:58 | ECHOSTRESS ---
Date of Exam: 07/20/17 Ordering Physician: DR. YUMIKO CROWLEY Reason for Echo: CAD, SURGICAL CLEARANCE, DOBUTAMINE STRESS-NO ISCHEMIA M-Mode Normal Adult Results LV Dimensions Normal Adult Results AoV Opening excursions >1.6 LVEDD-base- 3.5-5.8 Ao root dimensions 2.0-3.7 LVESD-base- 3.1-4.6 L. Atrium dimensions 1.9-3.8 Post. Wall thickness 0.8-1.1 IV septum (thickness) 0.7-1.2 Post. Wall excursion 0.72-1.3 Septal motion Systolic motion R. Ventricular cavity 1.5-2.0 LVEF 60% Paradoxical septal wall motion 2-D: MILDLY HYPOKINETIC LEFT VENTRICLE AT REST AND IMPROVED LEFT VENTRICULAR CONTRACTILITY WITH DOBUTAMINE INFUSION M-MODE: MV: AV: TV: PV: CHAMBER SIZE: WALL MOTION: MILDLY HYPOKINETIC LEFT VENTRICLE AT REST AND IMPROVED LEFT VENTRICULAR CONTRACTILITY WITH DOBUTAMINE INFUSION PERICARDIUM: INTERPRETATION: 1. MILDLY HYPOKINETIC LEFT VENTRICLE AT REST AND IMPROVED LEFT VENTRICULAR CONTRACTILITY WITH DOBUTAMINE INFUSION MTDD
== END 2017-07-20 06:17 | disposition home or self-care (01) ==
LOC: CAR 06:16
PROVIDERS: ATTEND General Practice
DX: E78.5 Hyperlipidemia, unspecified (principal); I25.10 Atherosclerotic heart disease of native coronary artery without angina pectoris; E10.9 Type 1 diabetes mellitus without complications; I10 Essential (primary) hypertension; Z01.818 Encounter for other preprocedural examination; Z72.0 Tobacco use

== ENCOUNTER 2017-07-26 13:24 | Outpatient (CLI) ==
--- NOTE | 2017-07-26 14:17 | CT ---
EXAM: CT of the head without contrast History: Loss of consciousness. Technique: Multiplanar CT images through the head were obtained without the administration of IV con trast Findings: Mucosal thickening and fluid seen within the bilateral maxillary sinuses, ethmoid air cell s and frontal sinuses. Mastoid air cells are clear in general. No acute calvarial abnormalities. Intracranially the ventricular and cisternal spaces are normal in size, shape and configuration for a patient of this age. No dominant mass or midline shift. No hydrocephalous. No acute intracranial hemorrhage or abnormal extraaxial fluid collections. Impression: 1. No acute intracranial process. 2. Paranasal sinusitis.
--- NOTE | 2017-07-26 14:22 | US ---
EXAM: Bilateral carotid artery Doppler History: Dizziness. Technique: Multiple sonographic images through the bilateral internal carotid arteries were obtained . Color duplex Doppler was used to interrogate vascular flow. Findings: The right ICA peak systolic velocity is moderately elevated measuring 130 cm/sec. The right ICA/cca P SV ratio is normal at 1.3. The right vertebral artery is patent and demonstrates antegrade flow. Gr ay scale images demonstrate mild to moderate plaque buildup within the proximal right internal caroti d artery. The left ICA peak systolic velocities within normal limits measuring 110 cm/sec. The left ICA/cca PSV ratio is normal at 0.8. The left vertebral artery is patent and demonstrates antegrade flow. Amaya scale images demonstrate mild plaque buildup within the left internal carotid artery. Impression: 1. Moderate, 50-69% hemodynamic stenosis of the right internal carotid artery. 2. No significant hemodynamic stenosis of the left internal carotid artery.
== END 2017-07-26 13:25 | disposition home or self-care (01) ==
LOC: RAD 13:24
PROVIDERS: ATTEND General Practice
DX: R42 Dizziness and giddiness (principal); R40.20 Unspecified coma; E11.9 Type 2 diabetes mellitus without complications; E11.40 Type 2 diabetes mellitus with diabetic neuropathy, unspecified; I10 Essential (primary) hypertension; E78.5 Hyperlipidemia, unspecified; I25.10 Atherosclerotic heart disease of native coronary artery without angina pectoris; Z72.0 Tobacco use; Z79.899 Other long term (current) drug therapy
CPT/HCPCS: 36415; 80053; 80061; 81001; 83036; 85025

== ENCOUNTER 2018-01-15 16:03 | Outpatient (CLI) | payer OTHER | END 2018-01-15 16:04 | disposition home or self-care (01) | LOC: FCC-LAB 16:03 | PROVIDERS: ATTEND General Practice | DX: E78.5 Hyperlipidemia, unspecified (principal); I10 Essential (primary) hypertension; I25.10 Atherosclerotic heart disease of native coronary artery without angina pectoris; R31.9 Hematuria, unspecified; E11.9 Type 2 diabetes mellitus without complications | CPT/HCPCS: 36415; 80053; 80061; 81001; 83037; 85025 ==

== ENCOUNTER 2018-03-06 10:31 | Outpatient (RCR) ==
[2018-03-06 11:28] VITALS: TEMP 208; BMI 24.8
[2018-03-13 13:36] VITALS: BP 142/60
== END 2018-03-13 23:59 ==
LOC: CAR.REHAB 10:31
PROVIDERS: ATTEND Internal Medicine Cardiovascular Disease
DX: I25.2 Old myocardial infarction (principal); Z95.5 Presence of coronary angioplasty implant and graft
CPT/HCPCS: 93798

== ENCOUNTER 2018-04-15 07:20 | Outpatient (RCR) ==
[2018-05-01 13:35] VITALS: BP 122/54
== END 2018-05-13 23:59 ==
LOC: CAR.REHAB 07:20
PROVIDERS: ATTEND Internal Medicine Cardiovascular Disease
DX: I25.2 Old myocardial infarction (principal); Z95.5 Presence of coronary angioplasty implant and graft
CPT/HCPCS: 93798

== ENCOUNTER 2018-05-15 07:29 | Outpatient (RCR) | END 2018-06-03 07:45 | disposition home or self-care (01) | LOC: CAR.REHAB 07:29 | PROVIDERS: ATTEND Internal Medicine Cardiovascular Disease | DX: I25.2 Old myocardial infarction (principal); Z95.5 Presence of coronary angioplasty implant and graft ==

== ENCOUNTER 2018-06-20 10:46 | Outpatient (CLI) | payer OTHER | END 2018-06-20 10:47 | disposition home or self-care (01) | LOC: RHC-LAB 10:46 | PROVIDERS: ATTEND Nurse Practitioner Family | DX: N64.4 Mastodynia (principal); E11.9 Type 2 diabetes mellitus without complications; I10 Essential (primary) hypertension | CPT/HCPCS: 36415; 80053; 82043; 83036; 84681; 85025 ==

== ENCOUNTER 2018-07-01 07:57 | Outpatient (CLI) | payer OTHER ==
--- NOTE | 2018-07-01 08:41 | MAMMO ---
EXAM: Bilateral digital diagnostic mammogram (2-D and 3-D) History: Right nipple pain. Findings: MLO and CC views of bilateral breasts demonstrate predominately fatty replaced breast pare nchyma. CAD was reviewed by the radiologist. Tomosynthesis was performed. Benign bilateral breast calcifications. 3 mm asymmetry seen just medial to the right nipple. No suspicious microcalcificati ons. No architectural distortions. Impression: Indeterminate 3 mm asymmetry seen just medial to the right nipple. Recommend further ev aluation with ultrasound. BIRADS 0, incomplete. Recommend further evaluation
--- NOTE | 2018-07-01 08:46 | US ---
EXAM: ULTRASOUND ABDOMEN LIMITED HISTORY: Abnormal liver enzymes FINDINGS: Ultrasound abdomen, limited. Amaya-scale ultrasound and color Doppler was performed. Live r size was measured at 19 cm which is enlarged. There is increased sound attenuation by the liver pa renchyma suggesting steatosis. No focal hepatic lesion or evidence of intrahepatic biliary dilatatio n was identified. The main portal vein is patent and hepatopedal. The gallbladder has been removed. Common bile duct diameter is normal at 0.41 cm. The pancreas was poorly seen. No ascites identified. IMPRESSION: 1. Enlarged fatty liver. 2. Post cholecystectomy state with no common bile duct dilatation.
--- NOTE | 2018-07-01 08:55 | US ---
EXAM: Right breast ultrasound. History: Right breast pain, right breast asymmetry. Comparison: Bilateral diagnostic mammogram 07/01/2018 Technique: Multiple sonographic images through the right breast were obtained. Color duplex Doppler was used to interrogate vascular flow. Findings: No masses, cysts or fluid collections identified. Impression: No sonographic evidence of malignancy. Follow-up with ACR/ACS guidelines. BIRADS 2, benign
== END 2018-07-01 07:58 | disposition home or self-care (01) ==
LOC: RAD 07:57
PROVIDERS: ATTEND Nurse Practitioner Family
DX: R74.0 Nonspecific elevation of levels of transaminase and lactic acid dehydrogenase [LDH] (principal); R93.89 Abnormal findings on diagnostic imaging of other specified body structures; N64.4 Mastodynia; I10 Essential (primary) hypertension; E11.9 Type 2 diabetes mellitus without complications

== ENCOUNTER 2018-09-05 10:20 | Outpatient (CLI) ==
[2018-09-05 08:48] VITALS: BMI 24.8
== END 2018-09-05 10:21 | disposition home or self-care (01) ==
LOC: RHC-LAB 10:20 → FCC-LAB 10:21
PROVIDERS: ATTEND Nurse Practitioner Family
DX: E55.9 Vitamin D deficiency, unspecified (principal); E11.9 Type 2 diabetes mellitus without complications
CPT/HCPCS: 36415; 80061; 82306

== ENCOUNTER 2018-09-18 09:00 | Outpatient (RCR) ==
--- NOTE | 2018-09-12 08:59 | RS.OPPTEV2 ---
Date of Note: 09/11/18 Visit #: 1 Number of visits approved by Insurance: n/a Date of Evaluation: 09/11/18 Payer Source: MEDICARE Surgery Performed?: No Treatment Diagnosis: cervical pain with radicular symptoms, muscle weakness, decreased ROM, History of Condition/Mechanism of Injury:: Cervical and shoulder pain began approx 1 year ago after having carpal tunnel and ulner nerve release surgery. No other known injury. Prior Level of Function.....Patient was independent with: ADL's, Self Care, Work /Vocation, Caregiving, Ambulation/Mobility, Community Integration/Access Functional Limitations: Sleep, Self Care, ADL's, Reaching, Pushing, Pulling, Lifting, Carrying Current Subjective/complaints:: pt states his pain begins at the neck and radiates into the R hand. pt states that this pain began after carpal tunnel and ulnar nerve release surgery. States that the atrophy in his had has worsened since surgery. pt reports having difficulty buttoning buttons and even difficulty holding utensils with R hand. Treatment Side (optional): Right *Precautions: n/a Medical History Medical History: Hypertension, Diabetes Surgical History: Cholecystectomy, Other Surgical History Comments:: Extensive vascular surgery 2 months ago of B illiac arteries and RLEs Hx Home Medications: hydroxyzine HCL, atorvastatin calcium, insulin, aspirin, pantoprazole, lisinopril, senna, furosemide, pregabalin, oxycodone HCL, Patient's Goals: decrease pain in cervical spine and shld. Pain Assessment - Pain Description Pain Location: cervical spine, R shld pain radiating into R UE Current Pain Intensity: 7/10 Functional Outcome Measure UE Functional Index: 36 - G Codes & Severity Modifier G Codes & Modifier: n/a Source of G Code score: n/a Observation - Observation Inspection: pt with visible atrophy in R hand especially in thumb. Posture: Forward Head, Rounded Shoulders, Increased Thoracic Kyphosis, Decreased Lumbar Lordosis, Decreased Cervical Lordosis Handedness: Right Gait - Gait Pattern General Gait Pattern Observation: No Deviations/Normal General Range of Motion: LUE WFL's. BLE WFL's Muscle Strength: LUE 5/5. BLE 5/5. RUE shld flex 3-/5, abd 3-/5, elbow flex/ ext 3+/5, wrist flex/ext 4-/5, decreased cylinder tester strength - ROM Cervical Spine Range of Motion Limitations: Soft Tissue Tightness, Muscle Weakness, Pain Comments: Cervical flex WFL's, rotation WFL's, lat side bending WFL's with min pain, cervical ext limited with significant pain radiating into RUE. - Strength Cervical Extension: 3- Fair- Cervical Flexion: 4- Good- Cervical Lateral Flexion: 4- Good- Cervical Rotation: 4- Good- Trunk Lateral Flexion: 4- Good- Trunk Rotation: 4- Good- - Special Tests Foraminal Compression: Positive Right - Right Shoulder ROM Right Shoulder Flexion: 94 (AROM, 122 AAROM) Right Shoulder Abduction: 98 (AROM) Right Shoulder Internal Rotation: 48 (AAROM) Right Shoulder External Rotation: 30 (AAROM) Right Shoulder ROM Limitations: Soft Tissue Tightness, Muscle Weakness, Pain - Right Shoulder Strength Right Shoulder Flexion: 3- Fair- Right Shoulder Extension: 3 Fair Right Shoulder Abduction: 3- Fair- Right Shoulder External Rotation: 3- Fair- Right Shoulder Internal Rotation: 3- Fair- - Special Tests Shoulder Empty Can (Supraspinatus) Test: Positive Right Shoulder Speed's Sign Test: Positive Right Shoulder Frank-Onesimo Impingement Test: Positive Right Solar Field Installation Crew Member Strength Left Hand Solar Field Installation Crew Member Strength: 60 Right Hand Solar Field Installation Crew Member Strength: 20 Dynamometer Testing Position: 2nd Position Palpation Palpation Findings: Tenderness, Trigger Point, Muscle Guarding Comments:: pt presents with tenderness to palpation to bicepital groove as well as medial border of scapula as well as R upper trap. Large trigger point in R upper trap as well as R cervical paraspinal approx C7, and medial border of scapula. Sensation - Sensation Right Upper Extremity: Impaired (N/T RUE especially in R hand) Left Upper Extremity: Impaired (mild n/t L hand) Right Lower Extremity: Impaired (n/t R foot) Left Lower Extremity: Intact/Normal Balance - Sitting Balance Static Sitting Balance: Normal Dynamic Sitting Balance: Normal - Standing Balance Static Standing Balance: Good Dynamic Standing Balance: Good - Heat/Cryotherapy Treatment: Cryotherapy Comments:: R shld Interventions - Exercise/Activities/Manual Therapy Exercises/Activities: pt performed cervical retraction, scapular retraction, upper trap stretch, as well as isometric shld flex, abd, add, ext. Manual Therapy: N/A HOME EXERCISE PROGRAM: pt given written HEP including: cervical retraction, scapular retraction, upper trap stretch as well as isometrics for shld - Charges Timed Code Treatment Minutes: 51 Total Treatment Time: 65 Procedures billed for this date of service:: eval med, ex , CP EVALUATION COMPLEXITY LEVEL EVALUATION COMPLEXITY LEVEL: HISTORY: Medium, EXAM OF BODY SYSTEMS: Medium, CLINICAL PRESENTATION: Medium, CLINICAL DECISION MAKING: Medium Assessment Assessment: pt presents with cervical pain with radicular symptoms into RUE, decreased cervical ext, muscle weakness, also with decreased shld ROM, shld pain , muscle weakness with atrophy and loss of function in dominant R hand. Feel pt would benefit from OT for shld and hand with PT to focus on cervical issues to decrease pain and improve function. Called and spoke with Jim Luna APRN and he agreed with OT. OT to eval pt next visit. Patient Education: Home Exercise Program, Education of Plan of Care Rehab Potential: Good Short Term Goals Goal #1: pt independent with initial HEP Goal to be met by: 10/02/18 Goal #2: pt rate pain < 7/10 cervical Goal to be met by: 10/02/18 Goal #3: Improve cervical ROM WFL's w less pain Goal to be met by: 10/02/18 Goal #4: Decrease R upper trap tightness Goal to be met by: 10/02/18 Apparel Patternmaker Goals Goal #1: pt with improved postural awareness Goal to be met by: 10/23/18 Goal #2: Cervical ROM WFL's with no radicular symptoms Goal to be met by: 10/23/18 Goal #3: Decreased cervical pain <5/10 Goal to be met by: 10/23/18 Plan - Treatment to be Provided Procedures: Therapeutic Exercises, Therapeutic Activity, Neuromuscular Rehab, Manual Therapy, Massage, Patient Education Modalities: Electrical Stimulation, Ultrasound/Phonophoresis, Class IV Laser, Cryotherapy, Hot Packs, Mechanical Traction - Treatment Plan Frequency: 2-3x week Duration: 6 weeks Dates of Fpc Goals: 10/23/18 Expiration date of current Insurance Approval:: n/a - Treatment Code (1) Radicular pain in right arm Code(s): M79.2 - NEURALGIA AND NEURITIS, UNSPECIFIED (2) Muscle weakness Code(s): M62.81 - MUSCLE WEAKNESS (GENERALIZED) (3) Neck pain Code(s): M54.2 - CERVICALGIA
--- NOTE | 2018-09-13 11:53 | RS.OPPTDN ---
Subjective Date of Note: 09/13/18 Visit #: 2 Number of visits approved by Insurance: na Date of Evaluation: 09/11/18 Payer Source: MEDICARE Treatment Diagnosis: cervical pain with radicular symptoms, muscle weakness, decreased ROM, Current Subjective/complaints:: Patient reports neck and upper trap pain is limiting his ability to sleep well at night. States modalities and manual therapy reduced his pain level. *Precautions: n/a Pain Assessment - Pain Description Pain Location: bilateral neck and upper traps, R > L Pain Description: Tightness, Aching Current Pain Intensity: mod to high Other Comments regarding Pain:: Pain reduced to mod following treatment. - Treatment Modality: Electrical Stim Unattended Parameters/Method Applied: [id number] HVGC to 135p.v. with 4 small pads to the bilateral cevical paraspinals and upper traps with HP prior to MT. Patient Position: Sitting - Heat/Cryotherapy Treatment: Hot Pack Interventions - Exercise/Activities/Manual Therapy Exercises/Activities: Assisted lateral cervical flexion stretch, mid scap stretch with UE across midline. Discussed current HEP. Total minutes of Exercise: 3mins Manual Therapy: 15mins. Soft and deep tissue mobs to the bilateral upper traps and cervical paraspinals. Trigger point release with focus on active trigger point on the right. Total minutes of Manual Therapy: 15mins HOME EXERCISE PROGRAM: pt given written HEP including: cervical retraction, scapular retraction, upper trap stretch as well as isometrics for shld - Objective Findings Observations,measurements,etc.: Active trigger point at the right upper traps. - Charges Timed Code Treatment Minutes: 18mins Total Treatment Time: 42mins Procedures billed for this date of service:: HP, Estim unattended, MT Assessment: Patient reporting good response to treatment today. Patient Education: Body/Joint mechanics, Home Exercise Program Patient demonstrates compliance with HEP?: Yes Short Term Goals Goal #1: pt independent with initial HEP Goal to be met by: 10/02/18 Progress towards Goal:: Progressing Goal #2: pt rate pain < 7/10 cervical Goal to be met by: 10/02/18 Goal #3: Improve cervical ROM WFL's w less pain Goal to be met by: 10/02/18 Progress towards Goal:: Progressing Goal #4: Decrease R upper trap tightness Goal to be met by: 10/02/18 Time Recorder Goals Goal #1: pt with improved postural awareness Goal to be met by: 10/23/18 Goal #2: Cervical ROM WFL's with no radicular symptoms Goal to be met by: 10/23/18 Goal #3: Decreased cervical pain <5/10 Goal to be met by: 10/23/18 Goal #4: Patient to demonstrate good postural awareness. Goal to be met by: 10/17/16 Plan Dates of Time Recorder Goals: 10/23/18 Expiration date of current Insurance Approval:: 10/23/18 PLAN: Continue modalities, manual therapy, and progressive exercises to reduce pain and increase functional activity level.
--- NOTE | 2018-09-16 13:56 | RS.OTEVAL ---
Subjective Date of Note: 09/13/18 Visit #: 1 Number of visits approved by Insurance: 12 Date of Evaluation: 09/13/18 Payer Source: MEDICARE Date of Onset/Injury/Change in Status: 12/11/17 Surgery Performed?: No Treatment Diagnosis: RUE shoulder pain, Right hand weakness Treatment Side (optional): Right *Precautions: n/a Prior Level of Function.....Patient was independent with: ADL's, Self Care, Work /Vocation, Caregiving, Ambulation/Mobility, Community Integration/Access History of Condition/Mechanism of Injury: Pt reports he started having trouble after his CTR on the RUE and then now he has limited drawing in hand, cannot make a full fist with the Right hand. Pt Has impaired sensation of BUE. Pt has more impaired sensation of the RUE hand. Pt cannot feel monofilament 4.31 on the dorsal or volar aspect of the RUE hand. Pt can feel monofilament 4.31 to the Left hand however it feels like a light touch. Level of Function: Pt is limited in function. Pt has difficulty with buttoning buttons, using scissors, opening jars, and tying shoes. Pt buys clothes a size or two bigger so he can pull up his pants after he buttons them or fastens them. Pt has limited in drawing in hand of the RUE. Current Complaints/Gains: Pt reports he has limited drawing in hand in the RUE. He is not able to use scissors or cut his food at meals. Pt reports he cannot open a jar. Pt is not able to tie his shoes. Pt cannot button a shirt or unbutton the shirt when it is on his body or off. Medical History Medical History: Hypertension, Diabetes Medical History Comments:: Pt had RUE CTR back in November of 2017. Surgical History: Cholecystectomy, Other Surgical History Comments:: Extensive vascular surgery 2 months ago of B illiac arteries and RLEs Smoking Status: Current every day smoker Hx Home Medications: hydroxyzine HCL, atorvastatin calcium, insulin, aspirin, pantoprazole, lisinopril, senna, furosemide, pregabalin, oxycodone HCL, Patient's Goals: To be able to use his RUE to cut food, carry groceries, and complete his self care independently. Pt would like to be pain free with using the RUE. Pain Assessment - Pain Description Pain Description: Burning, Radiating, Sharp, Aching Pain Location: Patient has pain in the RUE posterior scapula, scapulothoracic area, RUE, up into his neck. Pain Description: law, sharp, moves from his head down his arm. Current Pain Intensity: 9/10 Worst Pain Intensity: 10/10 Functional Outcome Measures UE Functional Index: 63 (Quick Dash 100) - G Codes & Severity Modifier G Codes: . Source of G Code score: . Observation - Observation Posture: Normal Handedness: Right Shoulder ROM: Left WFL's Shoulder Muscle Strength: Left WFL's - Right Shoulder ROM Right Shoulder Flexion: 105 (pain 7/10) Right Shoulder Extension: 38 (pain 7/10) Right Shoulder Abduction: 68 (yelled with pain at 10/10) Right Shoulder Horizontal Adduction: 30 Right Shoulder Internal Rotation: 46 (pain 4/6) Right Shoulder External Rotation: 15 (9/10) Right Shoulder ROM Limitations: Soft Tissue Tightness, Muscle Weakness, Pain - Left Shoulder Strength Left Shoulder Flexion: 4+ Good + Left Shoulder Extension: 4+ Good + Left Shoulder Abduction: 4+ Good + Left Shoulder Adduction: 4+ Good + Left Shoulder External Rotation: 4+ Good + Left Shoulder Internal Rotation: 4+ Good + - Right Shoulder Strength Comments: Strength was not assessed due to the patient's level of pain from touch. - Special Tests Shoulder Drop Arm Test: Negative Right Shoulder Frank-Onesimo Impingement Test: Negative Right Elbow ROM: Left WFL's Elbow Muscle Strength: Left WFL's - Left Elbow Strength Left Elbow Extension: 4+ Good + Left Elbow Flexion: 4+ Good + Left Forearm Pronation: 4+ Good + Left Forearm Supination: 4+ Good + - Right Elbow Strength Right Elbow Extension: 3- Fair- Right Elbow Flexion: 3- Fair- Right Forearm Pronation: 4 Good Right Forearm Supination: 3- Fair- Wrist ROM: Left WFL's Wrist Muscle Strength: Left WFL's - Right Wrist/Hand ROM Right Wrist Extension: 48 Right Wrist Flexion: 55 (9/10 pain) Right Forearm Pronation: 90 Right Wrist ROM Testing Limitations: Muscle Weakness, Pain Right Hand ROM: Pt is not able to complete opposition with the Right hand of thumb to any digit. Pt has limited movement of his wrist, digits, and can make 75% of a fist with the RUE. Pt has atrophy of the Right hand and a mass drawing in hand of 20. Pt has impaired fine motor skills as well as weakness, decreased coordination, and increased pain. - Right Wrist Strength Right Wrist Extension: 4 Good Right Wrist Flexion: 3- Fair- Right Wrist Radial Deviation: 2+ Poor+ Right Wrist Ulnar Deviation: 2+ Poor+ Right Forearm Pronation: 4 Good Right Forearm Supination: 3- Fair- - Hygiene Assistant Strength Left Hygiene Assistant Strength: 60 Right Hygiene Assistant Strength: 20 Hygiene Assistant Strength Left Hand Hygiene Assistant Strength: 60 Right Hand Hygiene Assistant Strength: 20 Dynamometer Testing Position: 2nd Position Palpation Palpation Findings: Tenderness, Trigger Point, Muscle Guarding Comments:: Pt has tenderpoints in the RUE scapula and subscapularis muscle. Pt has tenderpoint in the pectoralis muscles. Pt had so much pain and discomfort with RUE wrist extension and flexion. Sensation Right Upper Extremity: Impaired Left Upper Extremity: Impaired Sensation Description: Numbness Comments: Pt Has impaired sensation of BUE. Pt has more impaired sensation of the RUE hand. Pt cannot feel monofilament 4.31 on the dorsal or volar aspect of the RUE hand. Pt can feel monofilament 4.31 to the Left hand however it feels like a light touch. With the monofiliament 4.60 Pt feels with the RUE volarly on the ring digit and small digit but not dorsally on the small digit. Pt can feel the monofilament 4.60 on the LUE. Pt has difficulty with the monofilament 6.65 and feels volarly but not much dorsally on the RUE. Coordination - Tests Right Finger Opposition: Marked/Severe Deviation Comments: Pt has difficulty with the RUE fine motor coordination. Interventions - Exercise/Activities Exercise/Activities/Manual Therapy: Pt tolerated manual therapy to the RUE subscapularis and the posterior shoulder. Pt tolerated manual therapy to the posterior scapula. RUE Scapular release. HOME EXERCISE PROGRAM: ice pack to RUE. Keep moving the RUE shoulder. - Objective Findings Objective Findings:: Pt has atrophied muscles of the RUE hand specifically in the ulnar nerve area. Pt has limited fine motor coordination and has increased weakness. Pt has severe pain of the RUE shoulder and right posterior scapular area and subscapularis muscle. Patient required a scapular release. Pt had some improved sensation to his RUE small digit and ring digit. - Charges Timed Code Treatment Minutes: 60 Total Treatment Time: 30 Procedures billed for this date of service:: Evaluation medium, MT x 2 EVALUATION COMPLEXITY LEVEL: HISTORY: Medium, EXAM OF BODY SYSTEMS: Medium, CLINICAL DECISION MAKING: Medium Assessment Assessment: Pt has pain of 9/10 in the RUE shoulder. Pt has limited AROM and functional use of the RUE. Pt is having a difficult time sleeping, eating, and completing daily tasks. Rehab Potential: Good Problems/Comments: Pt has impaired sensation of the RUE. Pt has weakness of RUE , impaired function and increased pain. 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 Quick Dash Assessment completed and patient scored a 100 for disability. Short Term Goals Goal #1: Pt's RUE shoulder pain to decrease to 2-4/10. Goal to be met by: 09/27/18 Goal #2: Pt to increase RUE mass drawing in hand to 40#. Goal to be met by: 09/27/18 Goal #3: To increase RUE hand strength to complete gripping a knife to cut food. Goal to be met by: 09/27/18 Goal #4: Pt to tolerate RUE shoulder abduction to 90 with 0 pain. Goal to be met by: 09/27/18 Detention Goals Goal #1: Pt's RUE shoulder pain to decrease to 1-0/10. Goal to be met by: 10/25/18 Goal #2: Pt to increase RUE mass drawing in hand to 60#. Goal to be met by: 10/25/18 Goal #3: To increase thumb adduction to 20#. Goal to be met by: 10/25/18 Goal #4: Pt to increase strength of RUE to be 4+/5 with 0/10 pain. Goal to be met by: 10/25/18 Plan - Treatment to be provided Procedures: Therapeutic Exercises, Therapeutic Activity, Neuromuscular Rehab, Manual Therapy Modalities: Electrical Stimulation, Ultrasound/Phonophoresis - Treatment Plan Frequency: 3 X week Duration: 6 weeks Dates of Developmental Psychologist Goals: October 25, 2018 Expiration date of current Insurance Approval:: October 11, 2018 - Treatment Code (1) Shoulder pain, right Code(s): M25.511 - PAIN IN RIGHT SHOULDER Qualifiers: Chronicity: chronic Qualified Code(s): M25.511 - Pain in right shoulder; G89.29 - Other chronic pain Comments: M25.511 RUE shoulder pain Chronic (2) Decreased sensation of hand and upper extremity Code(s): R20.8 - OTHER DISTURBANCES OF SKIN SENSATION Comments: M20.8 Impaired sensation to monofilaments not just skin only, decreased motor function of RUE digits. (3) Muscle weakness of extremity Code(s): M62.81 - MUSCLE WEAKNESS (GENERALIZED) Comments: M62.81 Muscle weakness of RUE. (4) Impaired coordination of upper extremity Code(s): R27.8 - OTHER LACK OF COORDINATION Comments: R27.8 Impaired coordination of RUE.
--- NOTE | 2018-09-17 12:04 | RS.OPPTDN ---
Subjective Date of Note: 09/17/18 Visit #: 3 Number of visits approved by Insurance: na Date of Evaluation: 09/11/18 Payer Source: MEDICARE Treatment Diagnosis: cervical pain with radicular symptoms, muscle weakness, decreased ROM, Current Subjective/complaints:: Patient reports last treatment reduced pain and muscle tension in the neck and upper traps. States she was able to do a little work in his yard over the weekend. *Precautions: n/a Pain Assessment - Pain Description Pain Location: neck and upper traps Pain Description: Tightness, Aching Current Pain Intensity: mild to mod - Treatment Modality: Electrical Stim Unattended Parameters/Method Applied: [id number] HVGC to 130p.v. with 4 small pads to the bilateral cervical paraspinals and upper traps with HP prior to MT. Patient Position: Supine - Heat/Cryotherapy Treatment: Hot Pack (with Estim ) Interventions - Exercise/Activities/Manual Therapy Exercises/Activities: Assisted lateral cervical flexion stretch, mid scap stretch with UE across midline. Discussed current HEP. Total minutes of Exercise: 2mins Manual Therapy: 15mins. Soft and deep tissue mobs to the bilateral upper traps and cervical paraspinals. Trigger point release with focus on active trigger point on the right. Total minutes of Manual Therapy: 15mins HOME EXERCISE PROGRAM: pt given written HEP including: cervical retraction, scapular retraction, upper trap stretch as well as isometrics for shld - Objective Findings Observations,measurements,etc.: Patient with mod increased muscle tone in the bilateral upper traps, R>L. Patient presents with latent trigger points in bilateral traps today. - Charges Timed Code Treatment Minutes: 17mins Total Treatment Time: 40mins Procedures billed for this date of service:: HP, Estim unattended, MT Assessment: Pt responding well to treatment with reports of decreased pain and muscle tension. Reporting ability to do more activities at home. Patient Education: Education of diagnosis, Body/Joint mechanics, Home Exercise Program, Activity Modification Patient demonstrates compliance with HEP?: Yes Short Term Goals Goal #1: pt independent with initial HEP Goal to be met by: 10/02/18 Progress towards Goal:: Progressing Goal #2: pt rate pain < 7/10 cervical Goal to be met by: 10/02/18 Progress towards Goal:: Progressing Goal #3: Improve cervical ROM WFL's w less pain Goal to be met by: 10/02/18 Progress towards Goal:: Progressing Goal #4: Decrease R upper trap tightness Goal to be met by: 10/02/18 [facility] Goals Goal #1: pt with improved postural awareness Goal to be met by: 10/23/18 Goal #2: Cervical ROM WFL's with no radicular symptoms Goal to be met by: 10/23/18 Goal #3: Decreased cervical pain <5/10 Goal to be met by: 10/23/18 Goal #4: Patient to demonstrate good postural awareness. Goal to be met by: 10/17/16 Plan Dates of [facility] Goals: 10/23/18 Expiration date of current Insurance Approval:: 10/23/18 PLAN: Continue modalities and progress exercise to reduce pain and increase functional activity level.
--- NOTE | 2018-09-17 13:57 | RS.OTDNOTE ---
Subjective Date of Note: 09/17/18 Visit #: 2 Number of visits approved by Insurance: 12 Date of Evaluation: 09/13/18 Payer Source: MEDICARE Treatment Diagnosis: RUE shoulder pain, Right hand weakness *Precautions: n/a Current Complaints/Gains: Pt pleased with his progress after the first visit. Pt demo his improved AROM and rates pain decreased to 3-6/10. States he is unable to dress I or feed self I 2* hand strength. Pain Assessment - Pain Description Pain Description: Burning, Radiating, Sharp, Aching Pain Location: Patient has pain in the RUE posterior scapula, scapulothoracic area, RUE, up into his neck. Pain Description: law, sharp, moves from his head down his arm. Current Pain Intensity: 3 Worst Pain Intensity: 6 Modalities - Treatment Modality: Ultrasound Parameters/Method Applied: 1.5w/cm2 x 10 mins to trapezius and x 10 mins to anterior elbow. Patient Position: Sitting - Hot Pack/Cryotherapy Treatment: Hot Pack, Cryotherapy Interventions - Exercise/Activities Exercise/Activities/Manual Therapy: Pt tolerated manual therapy to the RUE subscapularis/scapula, trapezius and along volar forearm with MFR and trigger point therapy. PROM/gentle stretching of shoulder, elbow, wrist and digits performed with pt ed on HEP of isometrics and PROM in pain free range/GE planes. Pt also ed on digi-flex and digit opposition ex's with yellow t-putty issued to pt with HEP instruction. HOME EXERCISE PROGRAM: Use of CP after stretching. HEP/isometric ex's, and yellow t-putty act. - Objective Findings Objective Findings:: Pt demo great improvemet with pain and AROM following tx. - Charges Timed Code Treatment Minutes: 41 Total Treatment Time: 58 Procedures billed for this date of service:: [facility] MT2 Assessment Patient Education: Education of diagnosis, Body/Joint mechanics, Home Exercise Program, Home Safety, Activity Modification, Education of Plan of Care Patient demonstrates compliance with HEP?: Yes Short Term Goals Goal #1: Pt's RUE shoulder pain to decrease to 2-4/10. Goal to be met by: 09/27/18 (3-6) Progress towards goal: Progressing Goal #2: Pt to increase RUE mass signal timer to 40#. Goal to be met by: 09/27/18 Progress towards goal: Progressing Goal #3: To increase RUE hand strength to complete gripping a knife to cut food. Goal to be met by: 09/27/18 Progress towards goal: Progressing Goal #4: Pt to tolerate RUE shoulder abduction to 90 with 0 pain. Goal to be met by: 09/27/18 Progress towards goal: Progressing [employer] Grower Inside Goals Goal #1: Pt's RUE shoulder pain to decrease to 1-0/10. Goal to be met by: 10/25/18 Progress towards goal: Progressing Goal #2: Pt to increase RUE mass signal timer to 60#. Goal to be met by: 10/25/18 Progress towards goal: Progressing Goal #3: To increase thumb adduction to 20#. Goal to be met by: 10/25/18 Progress towards goal: Progressing Goal #4: Pt to increase strength of RUE to be 4+/5 with 0/10 pain. Goal to be met by: 10/25/18 Progress towards goal: Progressing Plan Dates of Horticultural Specialty Grower Inside Goals: October 25, 2018 Expiration date of current Insurance Approval:: 10/25/18 PLAN: Continue per POC to max functional UE AROM
--- NOTE | 2018-09-18 12:00 | RS.OPPTDN ---
Subjective Date of Note: 09/18/18 Visit #: 4 Number of visits approved by Insurance: na Date of Evaluation: 09/11/18 Payer Source: MEDICARE Treatment Diagnosis: cervical pain with radicular symptoms, muscle weakness, decreased ROM, Current Subjective/complaints:: Patient reports increased soreness after last session, but feels he is making progress. *Precautions: n/a Pain Assessment - Pain Description Pain Location: neck and upper traps, R > L Current Pain Intensity: mild to mod - Treatment Modality: Electrical Stim Unattended Parameters/Method Applied: [id number] HVGC to 140p.v. 4 small pads to each cervical paraspinals and upper traps with HP prior to MT. Patient Position: Supine - Heat/Cryotherapy Treatment: Hot Pack (with Estim) Interventions - Exercise/Activities/Manual Therapy Exercises/Activities: Assisted lateral cervical flexion stretch Total minutes of Exercise: 2mins Manual Therapy: 15mins. Soft and deep tissue mobs to the bilateral upper traps and cervical paraspinals. Trigger point release with focus on active trigger point on the right. Total minutes of Manual Therapy: 15mins HOME EXERCISE PROGRAM: pt given written HEP including: cervical retraction, scapular retraction, upper trap stretch as well as isometrics for shld - Objective Findings Observations,measurements,etc.: Patient demos reduced muscle tension today. - Charges Timed Code Treatment Minutes: 17mins Total Treatment Time: 40mins Procedures billed for this date of service:: HP, Estim unattended, MT Assessment: Patient reporting good response to treatment and muscle tone decreasing. Patient demonstrates compliance with HEP?: Yes Short Term Goals Goal #1: pt independent with initial HEP Goal to be met by: 10/02/18 Progress towards Goal:: Progressing Goal #2: pt rate pain < 7/10 cervical Goal to be met by: 10/02/18 Progress towards Goal:: Progressing Goal #3: Improve cervical ROM WFL's w less pain Goal to be met by: 10/02/18 Progress towards Goal:: Progressing Goal #4: Decrease R upper trap tightness Goal to be met by: 10/02/18 Quality Control Expert Goals Goal #1: pt with improved postural awareness Goal to be met by: 10/23/18 Goal #2: Cervical ROM WFL's with no radicular symptoms Goal to be met by: 10/23/18 Goal #3: Decreased cervical pain <5/10 Goal to be met by: 10/23/18 Goal #4: Patient to demonstrate good postural awareness. Goal to be met by: 10/17/16 Plan Dates of Quality Control Expert Goals: 10/23/18 Expiration date of current Insurance Approval:: 10/23/18 PLAN: Continue modalities, manual therapy, and progress toward postural strengthening exercise.
--- NOTE | 2018-09-18 13:43 | RS.OTDNOTE ---
Subjective Date of Note: 09/18/18 Visit #: 3 Number of visits approved by Insurance: 12 Date of Evaluation: 09/13/18 Payer Source: MEDICARE Treatment Diagnosis: RUE shoulder pain, Right hand weakness *Precautions: n/a Current Complaints/Gains: Pt reports he has pain on the ulnar aspect of the small digit of the RUE. Pt reports pain is a 3/10 for the RUE. Pt reports that he cannot use his RUE and his hand. Pt was encouraged to complete tasks to increase sensation of the RUE hand and the forearm. Pain Assessment - Pain Description Pain Description: Burning, Radiating, Sharp, Aching Pain Location: Patient has pain in the RUE posterior scapula, scapulothoracic area, RUE, up into his neck. Pain Description: law, sharp, moves from his head down his arm. Current Pain Intensity: 3/10 Worst Pain Intensity: 5/10 Interventions - Exercise/Activities Exercise/Activities/Manual Therapy: Pt tolerated manual therapy to the RUE subscapularis/scapula, extensor carpi ulnaris, extensor digitorum communis, and along volar forearm with MFR and trigger point therapy. Pt working on coordinaion of digits and proprioception and completing fine motor tasks with yellow putty and eyes open and closed to increase fine motor coordination, strength, and Proprioception. Pt educated and training on yellow putty movements with mass roofer assistant, isolated digit flexion and extension with RUE in yellow putty. Pt closing his eyes to learn how it feels to push his digits into the yellow putty. Pt completed yellow putty adduction x 10 reps between each set of digits. Mass roofer assistant with eyes closed x 10 reps. Pt completed turning the nut on a bolt with eyes open and then with eyes closed to learn how the movement feels and to improve coordination. Pt completed all of UE NMR with 1# wt. to increase proprioception/coordination, and strength of RUE. pt ed on HEP of isometrics and PROM in pain free range/GE planes. Pt completed straight arm ball on the wall making circles with eyes closed to increase coordination and proprioception of digits and RUE. Pt also ed on digi-flex and digit opposition ex's with yellow t-putty issued to pt with HEP instruction. HOME EXERCISE PROGRAM: Use of CP after stretching. HEP/isometric ex's, and yellow t-putty act. - Objective Findings Objective Findings:: Pt demo great improvemet with pain and AROM following tx. - Charges Timed Code Treatment Minutes: 63 Total Treatment Time: 63 Procedures billed for this date of service:: MT x 2, NMR x 2 Assessment Assessment: Pt is able to make 90% of a RUE fist today. Pt is improving in movement of digits. Pt reported pain in the RUE hand at 3/10. Pt has improved in the RUE shoulder. Pt has full AROM of the RUE shoulder today. Problems/Comments: Pt continues to have weakness of RUE, impaired coordination, pain, impaired proprioception and impaired function. Patient demonstrates compliance with HEP?: Yes Short Term Goals Goal #1: Pt's RUE shoulder pain to decrease to 2-4/10. Goal to be met by: 09/27/18 (3-6) Progress towards goal: Progressing Goal #2: Pt to increase RUE mass roofer assistant to 40#. Goal to be met by: 09/27/18 Progress towards goal: Progressing Goal #3: To increase RUE hand strength to complete gripping a knife to cut food. Goal to be met by: 09/27/18 Progress towards goal: Progressing Goal #4: Pt to tolerate RUE shoulder abduction to 90 with 0 pain. Goal to be met by: 09/27/18 Progress towards goal: Progressing Marketing Representative Goals Goal #1: Pt's RUE shoulder pain to decrease to 1-0/10. Goal to be met by: 10/25/18 Progress towards goal: Progressing Goal #2: Pt to increase RUE mass roofer assistant to 60#. Goal to be met by: 10/25/18 Progress towards goal: Progressing Goal #3: To increase thumb adduction to 20#. Goal to be met by: 10/25/18 Progress towards goal: Progressing Goal #4: Pt to increase strength of RUE to be 4+/5 with 0/10 pain. Goal to be met by: 10/25/18 Progress towards goal: Progressing Plan Dates of Marketing Representative Goals: October 25, 2018 Expiration date of current Insurance Approval:: 10/25/18 PLAN: OT to continue to increase coordination, proprioception, and strength of RUE. Pt to increase functional use of RUE. OT To increase shoulder strength and functional use and decrease atrophy of the RUE hand and forearm.
--- NOTE | 2018-09-23 10:37 | RS.CXNS ---
Date of scheduled appointment: 09/23/18 Type: No Show
--- NOTE | 2018-09-23 13:26 | RS.OTCXNS ---
OT Case Note Date of Scheduled Appointment: 09/23/18 Type: No Show
--- NOTE | 2018-09-30 10:13 | RS.OTCXNS ---
OT Case Note Date of Scheduled Appointment: 09/30/18 Type: No Show
--- NOTE | 2018-09-30 11:28 | RS.CXNS ---
Date of scheduled appointment: 09/30/18 Type: No Show
--- NOTE | 2018-10-11 13:37 | RS.OPPTDC ---
Date of Discharge: 09/18/18 Date of Evaluation: 09/11/18 Number of Visits: 4 Treatment Diagnosis: cervical pain with radicular symptoms, muscle weakness, decreased ROM, Current Level of Function: pt did not meet goals due to only had 4 visits then multiple no show visits. pt had began HEP. Current Complaints/Gains: Patient reported improvement in neck and shlds and upper trap pain. pt stated he was doing HEP. Pain Assessment - Pain Description Pain Location: upper trap, neck and shlds. Pain Description: Radiating, Aching Functional Outcome Measure Other: not reassessed due to no show for appts - G Codes & Severity Modifier G Codes & Modifier: n/a Source of G Code score: n/a Interventions - Exercise/Activities/Manual Therapy Exercises/Activities: n/a Manual Therapy: n/a HOME EXERCISE PROGRAM: pt given written HEP including: cervical retraction, scapular retraction, upper trap stretch as well as isometrics for shld - Charges Timed Code Treatment Minutes: n/a Total Treatment Time: n/a Procedures billed for this date of service:: n/a Assessment Assessment: pt did not meet goals due to no show for appts. Patient Education: Home Exercise Program, Education of Plan of Care Rehab Potential: Fair Short Term Goals Goal #1: pt independent with initial HEP Goal to be met by: 10/02/18 Progress towards Goal:: Progressing Goal #2: pt rate pain < 7/10 cervical Goal to be met by: 10/02/18 Progress towards Goal:: Progressing Goal #3: Improve cervical ROM WFL's w less pain Goal to be met by: 10/02/18 Progress towards Goal:: Progressing Goal #4: Decrease R upper trap tightness Goal to be met by: 10/02/18 Title Processor Goals Goal #1: pt with improved postural awareness Goal to be met by: 10/23/18 Goal #2: Cervical ROM WFL's with no radicular symptoms Goal to be met by: 10/23/18 Goal #3: Decreased cervical pain <5/10 Goal to be met by: 10/23/18 Goal #4: Patient to demonstrate good postural awareness. Goal to be met by: 10/17/16 Plan Reason for Discharge:: Poor Attendance/Compliance
== END 2018-10-11 23:59 ==
PROVIDERS: ATTEND Nurse Practitioner Family
DX: M79.601 Pain in right arm (principal); M25.511 Pain in right shoulder; M54.2 Cervicalgia; G89.29 Other chronic pain; R29.898 Other symptoms and signs involving the musculoskeletal system

== ENCOUNTER 2018-10-03 07:18 | Outpatient (CLI) | END 2018-10-03 07:19 | disposition home or self-care (01) | LOC: LAB 07:18 | PROVIDERS: ATTEND Clinical Nurse Specialist | DX: E78.2 Mixed hyperlipidemia (principal) | CPT/HCPCS: 36415; 80061; 84450; 84460 ==

== ENCOUNTER 2019-04-26 22:10 | Inpatient (IN) ==
--- NOTE | 2019-04-26 23:27 | CT ---
EXAM: CT brain without contrast HISTORY: Dizziness, slurred speech, possible cerebrovascular accident TECHNIQUE: CT of the brain without intravenous contrast FINDINGS: There is no acute hemorrhage midline shift or mass effect. No hydrocephalus or abnormal e xtra-axial fluid collection. Generalized involutional atrophy, mild. Chronic microvascular changes of the white matter tracts, mild. No acute large vessel territorial infarct is seen. The bony crani um appears normal. Mucoperiosteal thickening of the frontal and ethmoid sinuses. Soft tissues withou t significant abnormality. IMPRESSION: 1. Chronic changes as described. No acute intracranial abnormality is seen.
[2019-04-27] MEDS ORDERED: SODIUM CHLORIDE 1,000 ML IV STA (00:39)
[2019-04-27] MEDS ORDERED: HUMULIN R IVP STA (00:41)
--- NOTE | 2019-04-27 01:01 | ED.PDOC ---
General ED Provider: Dr. VERA DAWN Chief Complaint: Dizziness Stated Complaint: i have felt weak and dizzy Time Seen by Physician: 01:01 Mode of Arrival: Wheelchair Information Source: Patient Nursing and Triage Documentation Reviewed and Agree: Yes Does patient meet sepsis criteria?: No System Inflammatory Response Syndrome: Not Applicable Sepsis Protocol: For patient's 13 years and over: Temp is 96.8 and below OR 101 and greater Pulse >90 BPM Resp >20/minute Acutely Altered Mental Status Are patient's symptoms suggestive of a new infection, such as: -Pneumonia -Skin, Soft Tissue -Endocarditis -UTI -Bone, Joint Infection -Implantable Device -Acute Abdominal Infection -Wound Infection -Meningitis -Blood Stream Catheter Infection -Unknown Miscellaneous Complaint Exam Febrile Illness/Adult Complaint/Exam Onset/Duration: less than 24hrs Symptoms Are: Still present Timing: Intermittent Initial Severity: Mild Current Severity: Moderate Aggravating: Reports None Alleviating: Reports None Current Antibiotic Use: No Patient Advised to Stop Smoking: No Review of Systems Review Of Systems Constitutional: Reports No symptoms Eyes: Reports No symptoms Ears, Nose, Mouth, Throat: Reports No symptoms Respiratory: Reports No symptoms Cardiac: Reports No symptoms GI: Reports No symptoms, Diarrhea and Nausea : Reports No symptoms Musculoskeletal: Reports No symptoms Skin: Reports No symptoms Neurological: Reports No symptoms Endocrine: Reports No symptoms Hematologic/Lymphatic: Reports No symptoms All Other Systems: Reviewed and Negative FOR[facility]LY [facility] Medical History Depression Diabetes mellitus Insulin dependent type 1 diabetes mellitus Left knee injury Family History Mother Diabetes Cardiac disease Cerebrovascular accident Father Diabetes Cardiac disease Cerebrovascular accident Social History Smoking and tobacco status: Current every day smoker Physical Exam Physical Exam Appearance: Well-appearing Ill-appearing: None Pain Distress: None Eyes: YASMEEN, EOMI and Conjunctiva clear ENT: Ears normal and Nose normal Neck: Supple Respiratory: Airway patent Cardiovascular: RRR GI/: Soft Musculoskeletal: Normal strength Skin: Warm, Dry and Normal color Neurological: Sensation intact Psychiatric: Affect appropriate and Mood appropriate Interpretation Radiology Interpretation Radiology Interpretation By: Radiologist Radiology Results: Negative Exam Interpreted: CT Scan EKG Interpretation Time of EKG #1: 00:59 Rate: Normal Rhythm: Sinus Ectopy: None ST Segment: Normal Interpretation: nsr Re-Evaluation Re-Evaluation Time of Re-Evaluation: 00:59 Status: Improved Vital Signs Stable: Yes Pain Level: 0 Appearance: NAD Lungs: Clear Skin: Warm and Dry Neuro: Alert and Oriented X3 CV: RRR Critical Care Note Critical Care Note Total Time (mins): 30 Course Course Hematology/Chemistry: 04/26/19 23:15 04/26/19 23:15 Orders, Labs, Meds: Lab Review 04/26/19 04/26/19 04/27/19 23:15 23:15 00:01 WBC 9.71 RBC 4.45 L Hgb 13.9 L Hct 38.2 L MCV 85.8 MCH 31.2 H MCHC 36.4 H RDW Coeff of Zay 12.4 Plt Count 203 Immature Gran % (Auto) 0.4 Neut % (Auto) 63.9 Lymph % (Auto) 22.7 [place] % (Auto) 12.2 H Eos % (Auto) 0.5 Baso % (Auto) 0.3 Immature Gran # (Auto) 0.0 Neut # (Auto) 6.2 Lymph # (Auto) 2.2 [place] # (Auto) 1.2 Eos # (Auto) 0.1 Baso # (Auto) 0.0 Puncture Site O2 Saturation ABG pH ABG pCO2 ABG pO2 ABG HCO3 ABG Total CO2 ABG Base Excess Duran Test FiO2 % Sodium 124.8 L Potassium 4.58 Chloride 87.7 L Carbon Dioxide 24.2 Anion Gap 17.48 BUN 25.8 H Creatinine 1.98 H Estimated GFR (MDRD) 35.00 BUN/Creatinine Ratio 13.03 Glucose 622.2 H* Calcium 8.76 Total Bilirubin 0.85 AST 40.5 ALT 34.0 Alkaline Phosphatase 110.6 Total Protein 7.49 Albumin 4.09 Globulin 3.40 Albumin/Globulin Ratio 1.20 Influ A Molecular Assay Negative by naat Influ B Molecular Assay Negative by naat 04/27/19 00:04 WBC RBC Hgb Hct MCV MCH MCHC RDW Coeff of Zay Plt Count Immature Gran % (Auto) Neut % (Auto) Lymph % (Auto) [place] % (Auto) Eos % (Auto) Baso % (Auto) Immature Gran # (Auto) Neut # (Auto) Lymph # (Auto) [place] # (Auto) Eos # (Auto) Baso # (Auto) Puncture Site Lb O2 Saturation 91.0 L ABG pH 7.396 ABG pCO2 33.2 L ABG pO2 61.0 L ABG HCO3 20.4 L ABG Total CO2 21 L ABG Base Excess -4 L Duran Test + FiO2 % 21.0 Sodium Potassium Chloride Carbon Dioxide Anion Gap BUN Creatinine Estimated GFR (MDRD) BUN/Creatinine Ratio Glucose Calcium Total Bilirubin AST ALT Alkaline Phosphatase Total Protein Albumin Globulin Albumin/Globulin Ratio Influ A Molecular Assay Influ B Molecular Assay Orders Category Date Time Status ABG DRAW REQUEST Stat CARDIO 04/27/19 00:04 Ordered EKG-(ED ONLY) Stat CARDIO 04/26/19 23:02 Completed ED IV/MEDIPORT/POWERPORT .ONCE EMERGENCY 04/27/19 00:39 Active ABG Stat LAB 04/27/19 00:04 Completed CBC W/ AUTO DIFF Stat LAB 04/26/19 23:15 Completed COMPREHENSIVE METABOLIC PANEL Stat LAB 04/26/19 23:15 Completed DRUG SCREEN, URINE, RAPID Stat LAB 04/26/19 23:02 Uncollected FLU A/B MOLECULAR Stat LAB 04/26/19 23:59 Completed MOLECULAR GROUP A STREP Stat LAB 04/26/19 23:59 Completed URINALYSIS C & S IF INDICATED Stat LAB 04/26/19 23:02 Uncollected 0.9 % Sodium Chloride [Saline Flush] MEDS 04/27/19 00:39 Active 1 syr IVF PRN PRN Insulin Regular, Human [Humulin R] MEDS 04/27/19 00:41 Discontinued 10 unit IVP ONCE STA Sodium Chloride 0.9% [Sodium Chloride] 1,000 ml MEDS 04/27/19 00:39 Active IV 100 mls/hr CT HEAD W/O CONTRAST Stat RADS 04/26/19 23:02 Completed Medications Generic Name Dose Route Start Last Admin Trade Name Freq PRN Reason Stop Dose Admin Sodium Chloride 1,000 mls @ 100 mls/hr 04/27/19 00:39 Sodium Chloride IV 04/27/19 10:38 .Q10H STA Sodium Chloride 1 syr 04/27/19 00:39 04/27/19 00:54 Saline Flush IVF 1 syr PRN PRN Administration To flush IV Discontinued Medications Generic Name Dose Route Start Last Admin Trade Name Freq PRN Reason Stop Dose Admin Insulin Human Regular 10 unit 04/27/19 00:41 Humulin R IVP 04/27/19 00:42 ONCE STA Vital Signs: Temp Pulse Resp BP Pulse Ox 04/26/19 22:36 99.1 F 71 20 129/55 L 95 Discharge Plan Discharge Patient Disposition: ADMITTED INPATIENT Discharge Problem: Uncontrolled diabetes mellitus Prescriptions: No Action (DME) blood-glucose meter [Contour Next Meter] 1 EACH misc 1 ea MC QID Qty: 1 RF: 0 (DME) lancets [Lancets,Ultra Thin] 1 EACH misc 1 ea MC QID Qty: 150 RF: 5 oxycodone-acetaminophen 1 EACH tablet 1 ea PO TID Qty: 90 RF: 0 (DME) Blood Glucose Test 1 EACH strip 1 ea MC 6XD Qty: 210 RF: 3 furosemide 20 MG tablet 20 mg PO DAILY Qty: 30 RF: 2 (DME) pen needle, diabetic [BD Ultra-Fine Orig Pen Needle] 1 EACH needle 1 ea MC QID Qty: 1 RF: 12 pantoprazole [Protonix] 40 MG tablet,delayed release (DR/EC) 40 mg PO DAILY 90 Days Qty: 90 RF: 0 aspirin 81 MG tablet,delayed release (DR/EC) 81 mg PO DAILY Qty: 30 RF: 0 atorvastatin [Lipitor] 10 MG tablet 80 mg PO BEDTIME 90 Days Qty: 90 RF: 3 (DME) compress.stocking,knee,reg,lrg 1 EACH misc 1 ea MC daily while awake 30 Days Qty: 2 RF: 2 multivitamin Tablet 1 tab PO DAILY RF: 0 clopidogrel 75 mg Tablet 75 mg PO DAILY RF: 0 irbesartan 300 mg Tablet 300 mg PO DAILY RF: 0 metoprolol tartrate 25 mg Tablet 25 mg PO BID RF: 0 pregabalin [Lyrica] 75 mg Capsule 75 mg PO TID RF: 0 magnesium oxide 400 mg magnesium Capsule 400 mg PO BID RF: 0 Novolin R Regular U-100 Insuln 100 unit/mL Solution 10 unit subcut TID RF: 0 Basaglar KwikPen U-100 Insulin 100 unit/mL (3 mL) Insulin Pen 60 unit SUBCUT BEDTIME RF: 0 ED Provider: VERA DAWN Condition: Fair
[2019-04-27] MEDS ORDERED: HUMULIN R 100 UNIT in SODIUM CHLORIDE 99 ML IV SCH ×4 (01:15)
[2019-04-27] MEDS ORDERED: HUMULIN R ONE (02:11)
[2019-04-27 02:40] VITALS: BMI 28.3
[2019-04-27] MEDS: PERCOCET 7.5-325 PO SCH ×3 (06:17→21:57)
[2019-04-27] MEDS: LYRICA PO SCH ×3 (06:18→21:58)
[2019-04-27] MEDS ORDERED: LYRICA PO SCH (09:00)
[2019-04-27] MEDS ORDERED: PERCOCET 7.5-325 PO SCH (09:00)
[2019-04-27] MEDS ORDERED: HUMULIN R SUBCUT SCH (09:00)
[2019-04-27] MEDS: PROTONIX PO SCH (09:17)
[2019-04-27] MEDS: LOPRESSOR PO SCH ×2 (09:17→21:52)
[2019-04-27] MEDS: AVAPRO PO SCH (09:17)
[2019-04-27] MEDS: ASPIRIN EC PO SCH (09:17)
[2019-04-27] MEDS: LASIX TAB PO SCH (09:17)
[2019-04-27] MEDS: PLAVIX PO SCH (09:17)
[2019-04-27] MEDS: HUMULIN R SUBCUT SCH ×3 (09:19→17:04)
[2019-04-27] MEDS ORDERED: LANTUS SUBCUT SCH (09:30)
[2019-04-27] MEDS: LIPITOR PO SCH (21:52)
[2019-04-27] MEDS: HUMULIN R SUBCUT PRN (21:58)
[2019-04-28] MEDS: LYRICA PO SCH ×3 (05:47→22:35)
[2019-04-28] MEDS: PERCOCET 7.5-325 PO SCH ×3 (05:48→22:36)
[2019-04-28] MEDS: HUMULIN R SUBCUT PRN (05:48)
[2019-04-28] MEDS: LASIX TAB PO SCH (09:20)
[2019-04-28] MEDS: PLAVIX PO SCH (09:20)
[2019-04-28] MEDS: ASPIRIN EC PO SCH (09:20)
[2019-04-28] MEDS: AVAPRO PO SCH (09:20)
[2019-04-28] MEDS: PROTONIX PO SCH (09:21)
[2019-04-28] MEDS: LOPRESSOR PO SCH ×2 (09:21→21:20)
[2019-04-28] MEDS: HUMULIN R SUBCUT SCH ×3 (09:21→17:46)
[2019-04-28] MEDS: LANTUS SUBCUT SCH (09:22)
[2019-04-28] MEDS: LIPITOR PO SCH (21:20)
[2019-04-29] MEDS: HUMULIN R SUBCUT PRN ×2 (05:56→21:58)
[2019-04-29] MEDS: PERCOCET 7.5-325 PO SCH ×3 (05:56→22:00)
[2019-04-29] MEDS: LYRICA PO SCH ×3 (05:56→22:00)
[2019-04-29] MEDS: ASPIRIN EC PO SCH (08:48)
[2019-04-29] MEDS: PLAVIX PO SCH (08:48)
[2019-04-29] MEDS: PROTONIX PO SCH (08:48)
[2019-04-29] MEDS: LASIX TAB PO SCH (08:48)
[2019-04-29] MEDS: LOPRESSOR PO SCH ×2 (08:48→21:56)
[2019-04-29] MEDS: AVAPRO PO SCH (08:48)
[2019-04-29] MEDS: HUMULIN R SUBCUT SCH ×3 (08:49→17:27)
[2019-04-29] MEDS: LANTUS SUBCUT SCH (08:50)
[2019-04-29] MEDS ORDERED: ZOFRAN 4 MG/2 ML IVP PRN (17:36)
[2019-04-29] MEDS: LIPITOR PO SCH (21:57)
[2019-04-29] MEDS: PEPCID IVP SCH (21:59)
[2019-04-30] MEDS: HUMULIN R SUBCUT PRN ×3 (05:53→21:31)
[2019-04-30] MEDS: PROTONIX PO SCH (05:53)
[2019-04-30] MEDS: LASIX TAB PO SCH (05:53)
[2019-04-30] MEDS: LYRICA PO SCH ×3 (05:53→20:09)
[2019-04-30] MEDS: PERCOCET 7.5-325 PO SCH ×3 (05:53→20:10)
[2019-04-30] MEDS: LOPRESSOR PO SCH ×2 (09:07→20:10)
[2019-04-30] MEDS: PLAVIX PO SCH (09:07)
[2019-04-30] MEDS: AVAPRO PO SCH (09:08)
[2019-04-30] MEDS: ASPIRIN EC PO SCH (09:08)
[2019-04-30] MEDS: HUMULIN R SUBCUT SCH ×3 (09:11→17:06)
[2019-04-30] MEDS: LANTUS SUBCUT SCH (09:15)
[2019-04-30] MEDS: PEPCID IVP SCH ×2 (09:27→20:10)
[2019-04-30] MEDS ORDERED: DUONEB NEB STA (17:31)
[2019-04-30] MEDS ORDERED: ROCEPHIN 1 GM/50 ML D5W 1 GM/50 ML BAG IV STA (17:56)
--- NOTE | 2019-04-30 19:43 | DI ---
EXAM: Two views of the chest. History: Productive cough. Comparison: Chest radiograph 04/17/2016 Findings: Heart size is upper limits of normal. No focal consolidation. No appreciable pleural flu id and no pneumothorax. No acute osseous abnormalities. Impression: No acute cardiopulmonary process
[2019-04-30] MEDS: LIPITOR PO SCH (20:09)
[2019-05-01 05:55] VITALS: TEMP 98.1
[2019-05-01] MEDS: LASIX TAB PO SCH (06:08)
[2019-05-01] MEDS: PROTONIX PO SCH (06:08)
[2019-05-01] MEDS: PERCOCET 7.5-325 PO SCH ×2 (06:08→12:27)
[2019-05-01] MEDS: LYRICA PO SCH ×2 (06:09→12:27)
[2019-05-01] MEDS: HUMULIN R SUBCUT SCH ×2 (09:20→12:28)
[2019-05-01] MEDS: LANTUS SUBCUT SCH (09:21)
[2019-05-01] MEDS: LOPRESSOR PO SCH (09:22)
[2019-05-01] MEDS: ASPIRIN EC PO SCH (09:22)
[2019-05-01] MEDS: PLAVIX PO SCH (09:22)
[2019-05-01] MEDS: AVAPRO PO SCH (09:23)
[2019-05-01] MEDS: PEPCID IVP SCH (09:24)
[2019-05-01] MEDS: HUMULIN R SUBCUT PRN (11:09)
[2019-05-01 13:50] VITALS: BP 149/71
--- NOTE | 2019-05-16 09:45 | HP ---
DISCUSSION: Mr. Carlton is a 58-year-old gentleman with a history of Type 2 diabetes (?) and presented to the Emergency Department with complaints of dizziness. Over the past two to three days he felt weak and dizzy with just general feel of malaise and fatigue. He was evaluated in the Emergency Department and found to have a blood glucose of 622 associated with sodium of 124. Mr. Carlton felt so weak that he did not feel he could walk and therefore was admitted to my services as hospitalist for treatment of his hyperglycemia and hyponatremia. PAST MEDICAL HISTORY: MEDICATIONS: Aspirin Lipitor Plavix Lasix Basaglar Insulin Regular Humulin Insulin Irbesartan Magnesium Metoprolol Multivitamin Oxycontin Protonix Lyrica ALLERGIES: SITAGLIPTIN PHOSPHATE PAST MEDICAL HISTORY: History of diabetes (Type 2, question control) History of hyperlipidemia Hypertension History of diabetic neuropathy History of GERD History of stroke in the past History of coronary artery disease Peripheral artery disease PAST SURGICAL HISTORY: Stented coronary artery History of right carpal tunnel surgery History of cholecystectomy SOCIAL HISTORY: He is a previous smoker having used tobacco for 38 years. He has quit smoking for about one month now. He uses alcohol socially. Denies any ilicit substances. He has three children. FAMILY HISTORY: Reviewed and found to be positive for diabetes and congestive heart failure. REVIEW OF SYSTEMS: Global weakness is noted. No focal weakness. Denies any visual changes, tinnitus, chest pain, shortness of breath, hemoptysis, abdominal pain, blood in the stool, urinary symptoms or seizures. PHYSICAL EXAMINATION: V/S: Temperature 96, pulse 80, respiratory rate 18, BP 120/80. HEENT: Pupils are round. NECK: Supple. CHEST: Clear. CARDIOVASCULAR: Regular rate and rhythm. ABDOMEN: Soft, nontender. EXTREMITIES: Distal extremities without cyanosis or edema. ASSESSMENT: 1. Global weakness associated with: a) Hyperglycemia b) Hyponatremia PLAN: 1. Admission. 2. Insulin drip. 3. Monitoring sodium levels. 4. I will resume home medications. 5. Please see orders. MTDD
--- NOTE | 2019-05-16 09:51 | PN ---
DATE OF VISIT: 04/27/19 SUBJECTIVE: Mr. Carlton is beginning to feel better. His sodium has slightly improved. His blood sugars are still problematic. We are adjusting his insulin dosage. OBJECTIVE: Temperature 98.6, pulse 70, respirations 18, blood pressure 150/90. HEENT: Pupils equal, round and reactive. NECK: Supple. CHEST: Clear. CARDIOVASCULAR: Normal. ABDOMEN: Soft without edema. ASSESSMENT: 1. Hyperglycemia 2. Hyponatremia PLAN: 1. Adjustment of insulin dosing. 2. Resume diet. 3. Please see orders. MTDD
--- NOTE | 2019-05-16 09:56 | PN ---
DATE OF VISIT: 04/28/19 SUBJECTIVE: Mr. Carlton continues to improve. His blood sugars are gradually improving with decrease in glucose. His sodium is improving as well. His overall weakness is improved. He denies any chest pain, shortness of breath or headache. OBJECTIVE: V/S: Temperature 97.3, pulse 80, respiratory rate 18, BP 120/80. HEENT: Pupils are round and equal bilaterally. NECK: Supple. CHEST: Clear. CARDIOVASCULAR: Regular rate and rhythm. ABDOMEN: Soft and nontender. EXTREMITIES: Without edema. ASSESSMENT: 1. Hyperglycemia - improving. 2. Hyponatremia - improving. PLAN: 1. Again adjust insulin. 2. Monitor blood sugars. 3. Will also monitor sodium. 4. Increase activity. 5. Please see orders. MTDD
--- NOTE | 2019-05-16 10:00 | PN ---
DATE OF VISIT: 04/29/19 SUBJECTIVE: Mr. Carlton continues to improve. However, he had some nausea and vomiting today, was unreported to the nurses. He denies any chest pain or shortness of breath. He denies hemoptysis. OBJECTIVE: V/S: Temperature 96, pulse 70, respirations 18, BP 120/80. HEENT: Pupils are round. NECK: Supple. CHEST: Clear. CARDIOVASCULAR: Regular rate and rhythm. ABDOMEN: Soft, nontender. PLAN: 1. We are giving him Zofran. I have backed off on his diet to clear liquids and will see how he does with this. 2. Please see orders. MTDD
--- NOTE | 2019-05-16 10:04 | PN ---
DATE OF VISIT: 04/30/19 SUBJECTIVE: Mr. Carlton after nausea and vomiting reports having a cough productive of yellow sputum. Lung sounds are more coarse. I am wondering about maybe even some low grade aspiration. He does not report any shortness of breath or hemoptysis. OBJECTIVE: V/S: Temperature 96, pulse 70, respiratory rate 18, BP 120/80. LUNGS: Coarse sounds with rhonchi. CARDIOVASCULAR: Regular rate and rhythm. ABDOMEN: Soft and nontender. EXTREMITIES: No edema. Chest x-ray is noted to be clear of infiltrate. Neb treatment is given with improvement in lung sounds. ASSESSMENT: 1. Nausea and vomiting - resolved. 2. Cough with congestion - improved with neb treatment. 3. Hyperglycemia improved. 4. Hyponatremia improved. PLAN: 1. We will observe him for another 24 hours to make sure no sequellae of this. NATD
--- NOTE | 2019-05-16 10:24 | PN ---
PRINCIPAL DIAGNOSIS: 1. GLOBAL WEAKNESS SECONDARY TO #2. 2. HYPERGLYCEMIA. 3. HYPONATREMIA. 4. CORONARY ARTERY DISEASE. 5. DIABETIC NEUROPATHY. DISPOSITION: Discharge. Followup with Dr. Sigala in one week. DISCUSSION: This is a 58-year-old gentleman who presented to the Emergency Department with global weakness associated with hyperglycemia and hyponatremia. He says he has not been monitoring his blood sugars closely in the past couple of days. He was admitted to my services for further evaluation and treatment of his hyperglycemia and hyponatremia. CLINICAL COURSE: The patient was admitted. We changed his insulin regimen around. His sodium continued to improve on a daily basis and his global weakness improved. His blood sugars improved. However, he had an episode of nausea and vomiting midway during his hospitalization. After this he developed a cough productive of kind of a mucoid sputum. Chest x-ray was clear and with one breathing treatment his symptoms improved. At time of discharge he was afebrile. His cough improved. Lungs sounds were clear. He had no further nausea and vomiting. His hyperglycemia and hyponatremia improved. At this point we felt the patient was stable for discharge. He was discharged with his new insulin regimen. He will followup with Dr. Sigala in one week. [facility] MEDICAL CENTERBecky
== END 2019-05-01 16:10 | disposition home or self-care (01) | DRG 638 ==
LOC: ED 22:33 → SCU 04-27 01:04 → MEDSURG B 04-28 09:41 → EDSTATUS 04-30 13:25
PROVIDERS: ADMIT Family Medicine; ATTEND Family Medicine
DX: E11.65 Type 2 diabetes mellitus with hyperglycemia; E87.1 Hypo-osmolality and hyponatremia; I25.10 Atherosclerotic heart disease of native coronary artery without angina pectoris; E08.40 Diabetes mellitus due to underlying condition with diabetic neuropathy, unspecified; R05 Cough

== ENCOUNTER 2021-11-28 15:03 | Inpatient (IN) ==
[2021-11-28 15:38] LABS: BASOPHILS % (AUTO) 0.1 % (0.0-3.0); EOSINOPHILS % (AUTO) 0.1 % (0.0-7.0); HEMATOCRIT 27.4 % (42.0-52.0); HEMOGLOBIN 9.6 g/dl (14.0-18.0); IMMATURE GRANULOCYTE # (AUTO) 0.3 (0.0-1.0); IMMATURE GRANULOCYTE % (AUTO) 1.3 % (0.0-5.0); LYMPHOCYTES # (AUTO) 1.5 K/uL (0.60-3.4); LYMPHOCYTES % (AUTO) 7.1 (10.0-50.0); MEAN CORPUSCULAR HEMOGLOBIN 29.3 pg (27.0-31.0); MEAN CORPUSCULAR VOLUME 83.5 fl (80.0-94.0); MONOCYTES # (AUTO) 1.6 K/uL (0.4-2.0); MONOCYTES % (AUTO) 7.7 (0-10); NEUTROPHILS # (AUTO) 17.5 K/ul (2.0-6.9); NEUTROPHILS % (AUTO) 83.7 % (42.2-75.2); PLATELET COUNT 307 10^3/uL (140-440); RDW COEFFICIENT OF VARIATION 13.2 % (11.6-14.8); RED BLOOD COUNT 3.28 10^6/ul (4.70-6.10); WHITE BLOOD COUNT 20.95 K/ul (4.2-10.2)
[2021-11-28 15:52] LABS: ALANINE AMINOTRANSFERASE 18.7 U/L (0-50); ALBUMIN 3.64 g/dL (3.5-5.0); ALKALINE PHOSPHATASE 166.2 U/L (56-119); BILIRUBIN,TOTAL 0.59 mg/dL (0.2-1.3); BLOOD UREA NITROGEN 39.9 mg/dL (9-20); CALCIUM 8.91 mg/dL (8.4-10.2); CARBON DIOXIDE 22.3 mmol/L (22-30.0); CHLORIDE 96.4 mmol/L (98-107); CREATININE 2.34 mg/dL (0.60-1.10); GLUCOSE 397.4 mg/dL (74-106); POTASSIUM 4.03 mmol/L (3.5-5.1); SODIUM 129.5 mmol/L (134.5-145); TOTAL PROTEIN 7.58 g/dL (6.3-8.2)
[2021-11-28 16:03] LABS: TROPONIN I 0.034 ng/ml (0.0000-0.120)
--- NOTE | 2021-11-28 16:21 | CT ---
EXAM: CT ABDOMEN AND PELVIS HISTORY: Groin pain, bilateral leg pain TECHNIQUE: CT abdomen and pelvis without intravenous contrast. Multiplanar images. FINDINGS: Compared to 11/21/2020. Diagnostic limitations exist without including intravenous contrast enhanced images. Cirrhotic morph ology of the liver without obvious focal lesion. Spleen is unremarkable. Gallbladder is absent. Pa ncreas and adrenal glands are within normal limits. Nonspecific mild bilateral perinephric fat stran ding. No hydronephrosis or evidence of ureteral obstruction. Vascular calcifications are present. There are several retroperitoneal/periaortic, mesenteric, iliac chain and bilateral inguinal lymph no rohini which are nonspecific. Stomach is normal. No definite appendix is seen. Nonobstructive bowel g as pattern. Urinary bladder and prostate are unremarkable. No ascites or inflammatory infiltration of the abdominal fat. Prominent fatty bilateral inguinal canals with no regional fluid or inflammato ry process. The bones reveal mild degenerative changes of the spine, sacroiliac joints and hips. Brittanie ng bases are free of acute infiltrate. No pneumoperitoneum. IMPRESSION: 1. Cirrhotic morphology of the liver without obvious focal lesion. No ascites. 2. Nonspecific mild bilateral perinephric fat stranding. No hydronephrosis or evidence of ureteral obstruction. Urinary bladder is normal. No prostate enlargement. 3. There are several retroperitoneal/periaortic, mesenteric, iliac chain and bilateral inguinal lymp h nodes which are nonspecific. 4. Nonobstructive bowel gas pattern. 5. Prominent fatty bilateral inguinal canals with no regional fluid or inflammatory process. - - - - - All CT scans are performed using dose optimization techniques as appropriate to the performed exam an d include at least one of the following: Automated exposure control, adjustment of the mA and/or kV according t o size, and the use of iterative reconstruction technique.
--- NOTE | 2021-11-28 16:52 | DI ---
EXAM: Chest one view, frontal view only. HISTORY: Cough. COMPARISON: 12/03/2020. FINDINGS: The heart size is normal. There is no pulmonary vascular congestion. The lungs are clear . No pleural effusion or pneumothorax is seen. No acute osseous abnormality is identified. Since t he prior study, there has been no significant interval change. IMPRESSION: No acute cardiopulmonary process.
[2021-11-28 17:08] LABS: BILIRUBIN,URINE Negative (NEGATIVE); CLARITY,URINE Clear (CLEAR); COLOR,URINE Yellow (YELLOW); GLUCOSE, URINE (UA) 2+ (NEGATIVE); KETONES,URINE Negative (NEGATIVE); LEUKOCYTE ESTERASE ,URINE Negative (NEGATIVE); NITRITE,URINE Negative (NEGATIVE); PH,URINE 5.5 (5-9); PROTEIN,URINE 2+ (NEGATIVE); URINE, BLOOD 2+ (NEGATIVE); UROBILINOGEN,URINE 0.2 (0.2)
[2021-11-28 17:21] LABS: AMORPHOUS SEDIMENT,UR TRACE (NOT PRESENT); BACTERIA,URINE 2+ (NOT PRESENT); GRANULAR CASTS,URINE 0-2 (NOT PRESENT); SQUAMOUS EPITHELIAL CELL,UR 0-2 (0-5); URINE RBC, MICROSCOPIC 20-30 (0-2)
--- NOTE | 2021-11-28 18:18 | ED.PDOC ---
General ED Provider: Dr. BURKE BALLARD Chief Complaint: Weakness Stated Complaint: Overall vague weakness, and has poorly localized groin pain for a week or so. Seems worse, no injury. Limited mobility due to stroke hx. Diabetic, poorly controlled. Currently undergoing wound care for foot ulcers, feet bandaged. PCP Dr. Jolley. Time Seen by Provider: 11/28/21 15:15 Mode of Arrival: Ambulance Information Source: Patient and EMT Exam Limitations: No limitations Primary Care Provider: KARLA JOLLEY MD Nursing and Triage Documentation Reviewed and Agree: Yes Does patient meet sepsis criteria?: No System Inflammatory Response Syndrome: Not Applicable Sepsis Protocol: For patient's 13 years and over: Temp is 96.8 and below OR 101 and greater Pulse >90 BPM Resp >20/minute Acutely Altered Mental Status Are patient's symptoms suggestive of a new infection, such as: -Pneumonia -Skin, Soft Tissue -Endocarditis -UTI -Bone, Joint Infection -Implantable Device -Acute Abdominal Infection -Wound Infection -Meningitis -Blood Stream Catheter Infection -Unknown Miscellaneous Complaint Exam Physical Examination Complaint/Exam Onset/Duration: one week Symptoms Are: Still present Timing: Constant Initial Severity: Mild Current Severity: Moderate Location: Poorly localized groin area pain Character: Dull pressure Aggravating: Palpation Alleviating: None Associated Signs and Symptoms: No fever Specific Findings: Possible cellulitis in groin area, no clear infection source, no injury noted. Review of Systems Review Of Systems Constitutional: Reports Weakness Eyes: Reports No symptoms Ears, Nose, Mouth, Throat: Reports No symptoms Respiratory: Reports No symptoms Cardiac: Reports No symptoms GI: Reports No symptoms : Reports No symptoms Musculoskeletal: Reports No symptoms Skin: Reports No symptoms Neurological: Reports No symptoms Endocrine: Reports No symptoms Hematologic/Lymphatic: Reports No symptoms All Other Systems: Reviewed and Negative [facility] Medical History Arteriosclerotic heart disease (ASHD) CAD (coronary artery disease) Cervical radiculopathy CKD stage 3 due to type 2 diabetes mellitus Coronary artery arteriosclerosis CVA (cerebral vascular accident) Depression Diabetes mellitus, insulin dependent (IDDM), uncontrolled Diastolic heart failure with preserved ejection fraction Erectile dysfunction Erosion of penile prosthesis Essential hypertension Fistula Former smoker Gait difficulty GERD (gastroesophageal reflux disease) Heart murmur History of amputation of toe Hypercholesteremia Impairment of balance Left ventricular hypertrophy Lumbar radiculopathy MRSA (methicillin resistant Staphylococcus aureus) Myocardial infarct Neuropathy senior living resident Osteomyelitis Otitis externa PAD (peripheral artery disease) Peripheral vascular disease, unspecified Retinopathy VRE (vancomycin-resistant Enterococci) infection Family History Mother Diabetes CHF (congestive heart failure) Cardiac disease Cerebrovascular accident FATHER Diabetes CHF (congestive heart failure) Cardiac disease Cerebrovascular accident SISTER CHF (congestive heart failure) Hypothyroidism Diabetes SISTER Hypothyroidism Social History Smoking and tobacco status: Current every day smoker Tobacco type: cigarettes Smoking packs per day: 1 Tobacco: How many years used: 38 Passive smoking exposure: Yes Smoking status start date: 05/14/80 Smoking status stop date: 03/28/19 How long ago did patient quit smokin month Quit status: considering quitting Second hand smoke exposure: Yes Smoking risk assessment performed: Yes Alcohol intake: current Alcohol intake frequency: holidays/special occasions only Details: Me and my partner just started again. We are going to try and quit. Substance use type: does not use Counseling given: No Counseling provided: provider counseling Kellee/tenriism: ORTHODOXY Special kellee needs: No Agree to transfusion: Yes Adopted: No Caregiver/support person: No Foster care: No Household members: significant other Housing: house Marital status: D Lives independently: Yes Daycare: no daycare Number of children: 3 Number of grandchildren: 8 Highest education level completed: some college, no degree service: No senior living: No Current occupational status: retired and disabled Pets and animals: No Leisure activites: reading History of recent travel: No Sexually active: Yes Do you think of yourself as: lesbian/recinos/homosexual Current gender identity: male Seatbelt use: always Helmet use: No Drives intoxicated or rides with intoxicated 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 Current diet type/program: regular Well-balanced diet: rarely Caffeine: No Eating out: rarely or never During the past year weight has: remained stable Water heater temperature set < 120 degrees: Yes Working smoke detector in home: No Fire extinguisher in home: No Carbon monoxide detector in home: No Firearms in home: No What type of physical activity do you participate in?: none Physical activity functional status: independent ambulation Surgical History History of carpal tunnel release History of cholecystectomy History of coronary artery stent placement History of penile implant Physical Exam Physical Exam Appearance: Reports Well-appearing (chronic limited mobility) Ill-appearing: Mild Pain Distress: Mild Eyes: Reports YASMEEN ENT: Reports Oropharynx normal Neck: Supple Respiratory: Reports Airway patent and Breath sounds clear Cardiovascular: Reports RRR GI/: Reports Soft and Nontender Musculoskeletal: Reports Other (limited strength due to prior stroke along with generalized debility and weakness, feet bandaged by wound care clinic, bandages were not removed.) Skin: Reports Warm and Dry Neurological: Reports Sensation intact, Motor intact and Other (no acute changes from prior stroke) Psychiatric: Reports Affect appropriate and Mood appropriate Interpretation Radiology Interpretation Radiology Interpretation By: Radiologist Radiology Results: No acute changes Exam Interpreted: CXR Radiology Interpretation By: Radiologist Radiology Results: No acute changes Exam Interpreted: CT Scan Xray Comments: abd/pel - unremarkable, some liver cirrhosis and other findings, see report EKG Interpretation Time of EKG #1: 15:35 Rate: Normal Rhythm: Sinus Ectopy: None [place]: NL ST Segment: Other Interpretation: NSSTW changes. Critical Care Note Critical Care Note Total Critical Care Time (mins): 0 Course Course Hematology/Chemistry: 11/29/21 05:02 11/29/21 05:02 Orders, Labs, Meds: Lab Review 11/28/21 11/28/21 11/28/21 15:30 15:30 16:45 WBC 20.95 H RBC 3.28 L Hgb 9.6 L Hct 27.4 L MCV 83.5 MCH 29.3 MCHC 35.0 RDW Coeff of Zay 13.2 Plt Count 307 Immature Gran % (Auto) 1.3 Neut % (Auto) 83.7 H Lymph % (Auto) 7.1 L [place] % (Auto) 7.7 Eos % (Auto) 0.1 Baso % (Auto) 0.1 Neut # (Auto) 17.5 H Lymph # (Auto) 1.5 [place] # (Auto) 1.6 Eos # (Auto) 0.0 Baso # (Auto) 0.0 Immature Gran # (Auto) 0.3 Sodium 129.5 L Potassium 4.03 Chloride 96.4 L Carbon Dioxide 22.3 Anion Gap 14.83 BUN 39.9 H Creatinine 2.34 H Estimated GFR (MDRD) 29.00 BUN/Creatinine Ratio 17.05 Glucose 397.4 H Lactic Acid Calcium 8.91 Total Bilirubin 0.59 AST 50.0 ALT 18.7 Alkaline Phosphatase 166.2 H Troponin I 0.034 Total Protein 7.58 Albumin 3.64 Globulin 3.94 Albumin/Globulin Ratio 0.92 Urine Color Yellow Urine Clarity Clear Urine pH 5.5 Ur Specific [place] 1.015 Urine Protein 2+ H Urine Glucose (UA) 2+ H Urine Ketones Negative Urine Blood 2+ H Urine Nitrite Negative Urine Bilirubin Negative Urine Urobilinogen 0.2 Ur Leukocyte Esterase Negative Urine Microscopic RBC 20-30 Urine Microscopic WBC 2-5 Ur Squamous Epith Cells 0-2 Amorphous Sediment Trace Urine Bacteria 2+ Granular Casts 0-2 SARS CoV-2 RNA Rapid [place] 11/28/21 11/28/21 16:45 17:42 WBC RBC Hgb Hct MCV MCH MCHC RDW Coeff of Zay Plt Count Immature Gran % (Auto) Neut % (Auto) Lymph % (Auto) [place] % (Auto) Eos % (Auto) Baso % (Auto) Neut # (Auto) Lymph # (Auto) [place] # (Auto) Eos # (Auto) Baso # (Auto) Immature Gran # (Auto) Sodium Potassium Chloride Carbon Dioxide Anion Gap BUN Creatinine Estimated GFR (MDRD) BUN/Creatinine Ratio Glucose Lactic Acid 1.21 Calcium Total Bilirubin AST ALT Alkaline Phosphatase Troponin I Total Protein Albumin Globulin Albumin/Globulin Ratio Urine Color Urine Clarity Urine pH Ur Specific [place] Urine Protein Urine Glucose (UA) Urine Ketones Urine Blood Urine Nitrite Urine Bilirubin Urine Urobilinogen Ur Leukocyte Esterase Urine Microscopic RBC Urine Microscopic WBC Ur Squamous Epith Cells Amorphous Sediment Urine Bacteria Granular Casts SARS CoV-2 RNA Rapid [place] Negative Orders Category Date Time Status ADMIT OBSERVATION [PLACE PATIENT OBSERVATION] .TO ADMISSION 11/28/21 18:18 Active MEDSURG (NON-MONITORED BED) EKG-(ED ONLY) Stat CARDIO 11/28/21 15:28 Completed BLOOD CULTURE (ED ONLY) Stat LAB 11/28/21 17:42 Received CBC W/ AUTO DIFF Stat LAB 11/28/21 15:30 Completed COMPREHENSIVE METABOLIC PANEL Stat LAB 11/28/21 15:30 Completed LACTIC ACID Stat LAB 11/28/21 17:42 Completed SARS COV-2 RNA RAPID [place] Stat LAB 11/28/21 16:45 Completed TROPONIN I Stat LAB 11/28/21 15:30 Completed URINALYSIS C & S IF INDICATED Stat LAB 11/28/21 16:45 Completed URINE CULTURE Stat LAB 11/28/21 16:45 Received Cefepime 1 gm Vial [Maxipime 1 gm Vial] MEDS 11/28/21 18:27 Discontinued 1 gm .ROUTE .STK-MED ONE Cefepime 1 gm Vial [Maxipime 1 gm Vial] 1 gm MEDS 11/28/21 18:19 Discontinued 0.9 % Sodium Chloride [Sodium Chloride] 50 ml IV ONCE Clonidine HCl [Catapres] MEDS 11/28/21 19:21 Discontinued 0.1 mg PO ONCE STA Insulin Regular, Human [Humulin R] MEDS 11/28/21 18:44 Discontinued 10 unit IVP ONCE ONE Sodium Chloride 0.9% [Sodium Chloride] 500 ml MEDS 11/28/21 18:44 Discontinued IV BOLUS CHEST, 1V AP ONLY Stat RADS 11/28/21 16:[address] ABDOMEN/PELVIS WO CONTRAST Stat RADS 11/28/21 15:25 Completed Medications Generic Name Dose Route Start Last Admin Trade Name Freq PRN Reason Stop Dose Admin Atorvastatin Calcium 80 mg 11/28/21 21:00 11/28/21 21:19 Atorvastatin Calcium 10 Mg Tablet PO 80 mg BEDTIME LYNNE Administration Clonidine 0.1 mg 11/28/21 20:30 Clonidine Hcl 0.1 Mg Tablet PO DIRECTED LYNNE Clopidogrel Bisulfate 75 mg 11/29/21 09:00 Clopidogrel Bisulfate 75 Mg Tablet PO DAILY LYNNE Docusate Sodium 100 mg 11/28/21 21:00 11/28/21 21:18 Docusate Sodium 100 Mg Capsule PO 100 mg BID LYNNE Administration Enoxaparin Sodium 40 mg 11/29/21 09:00 Enoxaparin Sodium 40 Mg/0.4 Ml Syr SUBCUT DAILY LYNNE Ergocalciferol 50,000 unit 11/28/21 20:30 Ergocalciferol (Vitamin D2) 50,000 Unit Capsule PO QWEEK LYNNE Furosemide 20 mg 11/28/21 21:00 11/28/21 21:19 Furosemide 20 Mg Tablet PO 20 mg BEDTIME LYNNE Administration Furosemide 40 mg 11/29/21 09:00 Furosemide 20 Mg Tablet PO DAILY LYNNE Sodium Chloride 1,000 mls @ 75 mls/hr 11/28/21 20:30 11/28/21 21:11 Sodium Chloride IV 75 mls/hr .[id number] LYNNE Administration Cefepime HCl 1 gm/ Sodium 50 mls @ 50 mls/hr 11/29/21 02:00 11/29/21 01:03 Chloride IV 12/02/21 01:59 Not Given Q12HR LYNNE Insulin Detemir 55 unit 11/28/21 21:00 11/28/21 21:36 Insulin Detemir 100 Units/Ml SUBCUT Not Given BEDTIME LYNNE Insulin Human Lispro 10 unit 11/29/21 08:30 Insulin Lispro 100 Unit/Ml (3 Ml) Vial SUBCUT BIDWM LYNNE Insulin Human Regular 0 unit 11/29/21 05:11 Insulin Regular, Human 100 Unit/Ml (3ml) Vial SUBCUT PRN PRN Hyperglycemia Protocol Lisinopril 40 mg 11/29/21 09:00 Lisinopril 40 Mg Tablet PO DAILY LYNNE Metoprolol Tartrate 25 mg 11/28/21 21:00 11/28/21 21:18 Metoprolol Tartrate 25 Mg Tablet PO 25 mg BID LYNNE Administration Oxycodone/Acetaminophen 1 tab 11/28/21 20:26 11/28/21 21:28 Oxycodone/Acetaminophen 7.5/325 Mg Tablet PO 1 tab Q6H PRN Administration Pain Pantoprazole Sodium 40 mg 11/28/21 21:00 11/28/21 21:18 Pantoprazole Sodium 40 Mg Tablet.Dr PO 40 mg BID LYNNE Administration Pregabalin 75 mg 11/28/21 21:00 11/28/21 21:18 Pregabalin 75 Mg Capsule PO 75 mg TID LYNNE Administration Discontinued Medications Generic Name Dose Route Start Last Admin Trade Name Freq PRN Reason Stop Dose Admin Clonidine 0.1 mg 11/28/21 19:21 11/28/21 20:04 Clonidine Hcl 0.1 Mg Tablet PO 11/28/21 19:22 0.1 mg ONCE STA Administration Cefepime HCl 1 gm/ Sodium 50 mls @ 50 mls/hr 11/28/21 18:19 11/28/21 18:35 Chloride IV 11/28/21 19:18 50 mls/hr ONCE ONE Administration Sodium Chloride 500 mls @ 500 mls/hr 11/28/21 18:44 11/28/21 20:16 Sodium Chloride IV 11/28/21 19:43 500 mls/hr BOLUS STA Administration VANCOMYCIN/WATER FOR INJ (PEG) 1 gm in 200 mls @ 200 mls/hr 11/28/21 20:26 11/28/21 21:12 Vancomycin 1 Gram/200 Ml Premix IV 11/28/21 21:25 200 mls/hr ONCE ONE Administration Insulin Human Regular 10 unit 11/28/21 18:44 11/28/21 20:04 Insulin Regular, Human 100 Unit/Ml (3ml) Vial IVP 11/28/21 18:45 10 unit ONCE ONE Administration Vital Signs: Temp Pulse Resp BP Pulse Ox 11/28/21 15:04 98.9 F 94 H 18 186/81 H 96 Discharge Plan Discharge Patient Disposition: PLACED OBSERVATION Did you review [place] PHYSICAL EDUCATION DEPARTMENT CHAIR?: Not Applicable ED Provider: BURKE BALLARD Condition: Stable Physician Progress Note: [Only acute change in him appears to be this groin pain with some subtle skin changes that may represent a cellulitis. He is diabetic and prone to infection, although this appears to be superficial and not clinically something like diabetic myositis. WBC 20 K, no other source found. Admit on cefepime and vanc. Monitor for response.]
[2021-11-28] MEDS ORDERED: MAXIPIME 1 GM VIAL 1 GM in SODIUM CHLORIDE 50 ML IV ONE (18:19)
[2021-11-28] MEDS ORDERED: MAXIPIME 1 GM VIAL ONE (18:27)
[2021-11-28] MEDS ORDERED: HUMULIN R IVP ONE (18:44)
[2021-11-28] MEDS ORDERED: SODIUM CHLORIDE 500 ML IV STA (18:44)
[2021-11-28] MEDS ORDERED: CATAPRES PO STA (19:21)
[2021-11-28] MEDS ORDERED: VANCOMYCIN 1 GRAM/200 ML PREMIX 1 GM/200 ML BAG IV ONE (20:26)
[2021-11-28] MEDS ORDERED: CATAPRES PO SCH (20:30)
[2021-11-28 20:36] VITALS: BMI 25.8
[2021-11-28] MEDS: SODIUM CHLORIDE 1,000 ML IV SCH (21:11)
[2021-11-28] MEDS: LYRICA PO SCH (21:18)
[2021-11-28] MEDS: LOPRESSOR PO SCH (21:18)
[2021-11-28] MEDS: COLACE PO SCH (21:18)
[2021-11-28] MEDS: PROTONIX PO SCH (21:18)
[2021-11-28] MEDS: LASIX TAB PO SCH (21:19)
[2021-11-28] MEDS: LIPITOR PO SCH (21:19)
[2021-11-28] MEDS: PERCOCET 7.5-325 PO PRN (21:28)
[2021-11-28] MEDS: LEVEMIR SUBCUT SCH (21:36)
[2021-11-29] MEDS ORDERED: MAXIPIME 1 GM VIAL 1 GM in SODIUM CHLORIDE 50 ML IV SCH (02:00)
[2021-11-29 05:07] LABS: HEMATOCRIT 22.6 % (42.0-52.0); HEMOGLOBIN 7.8 g/dl (14.0-18.0); MEAN CORPUSCULAR HGB CONC 34.5 (31.8-35.4); PLATELET COUNT 258 10^3/uL (140-440); RDW COEFFICIENT OF VARIATION 13.3 % (11.6-14.8); RED BLOOD COUNT 2.69 10^6/ul (4.70-6.10); WHITE BLOOD COUNT 19.33 K/ul (4.2-10.2)
[2021-11-29 05:22] LABS: BLOOD UREA NITROGEN 35.8 mg/dL (9-20); CALCIUM 8.42 mg/dL (8.4-10.2); CARBON DIOXIDE 19.4 mmol/L (22-30.0); CHLORIDE 103.4 mmol/L (98-107); CREATININE 2.11 mg/dL (0.60-1.10); GLUCOSE 264.3 mg/dL (74-106); POTASSIUM 3.56 mmol/L (3.5-5.1); SODIUM 132.4 mmol/L (134.5-145)
[2021-11-29 05:35] LABS: ANISOCYTOSIS NOT PRESENT (NOT PRESENT)
[2021-11-29] MEDS: MAXIPIME 2 GM in SODIUM CHLORIDE 100ML 100 ML IV SCH ×2 (08:46→20:29)
[2021-11-29] MEDS: HUMALOG SUBCUT SCH ×3 (08:46→17:42)
[2021-11-29] MEDS: PROTONIX PO SCH ×2 (08:47→20:28)
[2021-11-29] MEDS: LOVENOX SUBCUT SCH (08:47)
[2021-11-29] MEDS: COLACE PO SCH ×2 (08:47→20:28)
[2021-11-29] MEDS: PLAVIX PO SCH (08:47)
[2021-11-29] MEDS: LOPRESSOR PO SCH ×2 (08:47→20:28)
[2021-11-29] MEDS: PERCOCET 7.5-325 PO PRN ×3 (08:48→22:10)
[2021-11-29] MEDS: LYRICA PO SCH ×3 (08:48→20:28)
[2021-11-29] MEDS: ZESTRIL PO SCH (08:48)
[2021-11-29] MEDS ORDERED: LASIX TAB PO SCH (09:00)
--- NOTE | 2021-11-29 10:42 | PCM.PROG ---
Date Seen by Provider: 11/29/21 Time Seen by Provider: 10:37 Subjective: bilateral foot pain, and wound ulcers, bilateral groin erythema sparing the scrotum, ambulates w/ walker, treated w/ cefepime and vanc w/ WBC 19, receiving ivns 75cc/hr Objective: Vitals: T=98.8 F, P=79, R=16, SI=242/78, SPO2=97 HEENT: []conjunctiva clear Neck: []supple Lungs: [] clear CVS: []RRR Abdomen: []soft and nontender Extremities: []ulcer of lateral right foot and left heel ulcer Neurological: []alert and oriented Skin: []erythema of bilateral groin suggesting yeast, no sacral decubes Lab/Tests/Diagnostic Imaging: [] wbc 19, Hb 7.9, cxr nap, u/a +bacteria Plan: obtain bilateral foot xray to exclude osteo, start nystatin powder to groins care to Dr Licea at 19:00
[2021-11-29] MEDS: VANCOMYCIN 1 GRAM/200 ML PREMIX 1 GM/200 ML BAG IV SCH ×2 (10:54→21:09)
[2021-11-29] MEDS: SODIUM CHLORIDE 1,000 ML IV SCH (11:05)
--- NOTE | 2021-11-29 14:19 | DI ---
EXAM: Right foot three views HISTORY: Pain foot pain FINDINGS: Compared to 05/17/2020. Bones are significantly demineralized. Since the prior study, the re has been amputation of the second digit distal to the metatarsal head and of the fifth digit at th e level of the mid metatarsal. There is a small 3.5 mm corticated bone density seen lateral to the d istal aspect of the fourth metatarsal which may be dystrophic or postoperative in nature. There is d iffuse mild to moderate arthropathy. An acute fracture is not obvious. No acute soft tissue finding . Vascular calcifications are present. IMPRESSION: 1. Significant generalized demineralization without visible fracture. 2. Postop changes.
--- NOTE | 2021-11-29 14:29 | DI ---
EXAM: LEFT FOOT RADIOGRAPH (3 VIEW) TECHNIQUE: 3 views. Frontal, lateral, and oblique. HISTORY: Left foot pain. COMPARISON: None. FINDINGS: There has been previous amputation through the third metatarsal phalangeal joint. There is no fracture or dislocation. Articular surfaces are intact. There is gas in the soft tissues posterior to the calcaneus and possible lysis of the posterior super ior calcaneous. There is no other lytic lesion. There is diffuse soft tissue swelling. Vascular calcifications are present consistent with atheroscl erosis. There is no radiopaque foreign body. IMPRESSION: 1. Previous amputation through the third metatarsal phalangeal joint. 2. Gas in the soft tissues posterior to the calcaneus and possible lysis of the posterior superior c alcaneous. Correlation with CT scan or MRI is advised. 3. Diffuse soft tissue swelling. 4. Atherosclerosis. 5. Otherwise unremarkable images of the left foot.
[2021-11-29] MEDS: LIPITOR PO SCH (20:27)
[2021-11-29] MEDS: NYSTOP POWDER TP SCH (20:28)
[2021-11-29] MEDS: LASIX TAB PO SCH (20:28)
[2021-11-29] MEDS ORDERED: LEVEMIR SUBCUT ONE (20:36)
[2021-11-29] MEDS: LEVEMIR SUBCUT SCH (20:44)
[2021-11-30] MEDS: SODIUM CHLORIDE 1,000 ML IV SCH ×2 (01:23→15:48)
[2021-11-30 04:50] LABS: BASOPHILS % (AUTO) 0.2 % (0.0-3.0); EOSINOPHILS # (AUTO) 0.3 K/ul (0.0-0.7); EOSINOPHILS % (AUTO) 1.5 % (0.0-7.0); HEMATOCRIT 22.9 % (42.0-52.0); HEMOGLOBIN 7.7 g/dl (14.0-18.0); IMMATURE GRANULOCYTE # (AUTO) 0.2 (0.0-1.0); IMMATURE GRANULOCYTE % (AUTO) 1.3 % (0.0-5.0); LYMPHOCYTES # (AUTO) 1.6 K/uL (0.60-3.4); LYMPHOCYTES % (AUTO) 9.1 (10.0-50.0); MEAN CORPUSCULAR HEMOGLOBIN 28.5 pg (27.0-31.0); MEAN CORPUSCULAR HGB CONC 33.6 (31.8-35.4); MEAN CORPUSCULAR VOLUME 84.8 fl (80.0-94.0); MONOCYTES # (AUTO) 1.3 K/uL (0.4-2.0); MONOCYTES % (AUTO) 7.2 (0-10); NEUTROPHILS # (AUTO) 14.5 K/ul (2.0-6.9); NEUTROPHILS % (AUTO) 80.7 % (42.2-75.2); PLATELET COUNT 305 10^3/uL (140-440); RDW COEFFICIENT OF VARIATION 13.4 % (11.6-14.8); WHITE BLOOD COUNT 17.95 K/ul (4.2-10.2)
[2021-11-30 05:02] LABS: BLOOD UREA NITROGEN 30.9 mg/dL (9-20); CALCIUM 8.33 mg/dL (8.4-10.2); CARBON DIOXIDE 18.9 mmol/L (22-30.0); CHLORIDE 105.7 mmol/L (98-107); CREATININE 2.02 mg/dL (0.60-1.10); POTASSIUM 3.1 mmol/L (3.5-5.1)
[2021-11-30] MEDS: LASIX TAB PO SCH ×2 (07:59→17:11)
[2021-11-30] MEDS: PROTONIX PO SCH ×2 (07:59→17:11)
[2021-11-30] MEDS: MAXIPIME 2 GM in SODIUM CHLORIDE 100ML 100 ML IV SCH ×2 (07:59→20:50)
[2021-11-30] MEDS: HUMALOG SUBCUT SCH ×2 (08:00→17:12)
[2021-11-30] MEDS: NYSTOP POWDER TP SCH ×2 (08:08→20:50)
[2021-11-30] MEDS: LOVENOX SUBCUT SCH (08:09)
[2021-11-30] MEDS: PERCOCET 7.5-325 PO PRN ×3 (08:09→20:59)
[2021-11-30] MEDS: COLACE PO SCH ×2 (08:09→20:51)
[2021-11-30] MEDS: LOPRESSOR PO SCH ×2 (08:09→20:51)
[2021-11-30] MEDS: LYRICA PO SCH ×3 (08:09→20:51)
[2021-11-30] MEDS: PLAVIX PO SCH (08:09)
[2021-11-30] MEDS: ZESTRIL PO SCH (08:09)
[2021-11-30] MEDS: VANCOMYCIN 1 GRAM/200 ML PREMIX 1 GM/200 ML BAG IV SCH ×2 (09:09→21:57)
--- NOTE | 2021-11-30 10:30 | PCM.PROG ---
Date Seen by Provider: 11/30/21 Time Seen by Provider: 10:00 Subjective: No new problems. Groin pain better. Feet feel the same. He knows we are trying to get him transferred to [facility] where his wound doc is. Objective: Vitals: T=98.5 F, P=72, R=20, OX=744/68, SPO2=98 HEENT: [wnl] Neck: [wnl Lungs: wnl[] CVS: wnl[] Abdomen: wnl Extremities: [wnl except for feet, had some toes amp, under tx for feet infections.] Neurological: [wnl] Skin: no acute change, still with diabetic foot infections, nurses do dressings] Lab/Tests/Diagnostic Imaging: [X-rays of feet: Left may have osteomyelitis in the heel, need CT. Right OK. Hb in 7 range. K low.] (1) Type 2 diabetes mellitus with left diabetic foot infection: Status: Acute Code(s): E11.628 - Type 2 diabetes mellitus with other skin complications; L08.9 - Local infection of the skin and subcutaneous tissue, unspecified SNOMED Code(s): 59025718 Assessment: Xray suggests heel osteomyelitis, order CT today. Still on vanc and cef. (2) Cellulitis of groin: Status: Acute Code(s): L03.314 - Cellulitis of groin SNOMED Code(s): 70520916 Assessment: Better. Appears to have been more a yeast than bacterial infection, better with yeast tx. (3) Diabetes 1.5, managed as type 1: Status: Acute Code(s): E13.9 - Other specified diabetes mellitus without complications SNOMED Code(s): 716519239 Assessment: Marginal control, patient likes to dictate his insulin doses. (4) Type 2 diabetes mellitus with right diabetic foot infection: Status: Acute Code(s): E11.628 - Type 2 diabetes mellitus with other skin complications; L08.9 - Local infection of the skin and subcutaneous tissue, unspecified SNOMED Code(s): 65973759 Assessment: No sign of osteo, on vanc and cef. (5) Anemia: Status: Acute Code(s): D64.9 - Anemia, unspecified SNOMED Code(s): 030887018 Assessment: Hb in 7 range, likely related to diabetic kidney disease and chronic disease state - monitor. Plan: Continue to try and get him transferred [facility] where his wound doc (neurodiagnostic technician) is located, he is on a wait list. Cont. vanc and cefepime. Continue to monitor blood sugar, gave a K dose, watch anemia.
[2021-11-30] MEDS ORDERED: K-DUR PO ONE (10:41)
[2021-11-30 13:49] LABS: OCCULT BLOOD SAMPLE 1 POSITIVE (NEGATIVE)
--- NOTE | 2021-11-30 14:38 | CT ---
EXAM: CT of the left foot without contrast COMPARISON: Left foot radiographs 11/29/2021. HISTORY: Osteomyelitis. Abnormal radiographs. TECHNIQUE: Noncontrast CT images of the left foot and ankle were obtained. Axial reconstructions wi th sagittal and coronal reformats were provided. FINDINGS: There is subcutaneous edema and ill-defined subcutaneous fluid throughout the foot and ank le most extensive at the level of the posterior ankle/heel. There is deep soft tissue ulceration cory ng the posterolateral aspect of the calcaneal tuberosity extending along the attachment of the Achill es tendon. There is extensive soft tissue gas at the level of soft tissue ulceration and extending o pamela a region measuring 7.7 cm (cranial - caudal) by 4.6 x 2.8 cm (transverse) into the deep soft tiss ues circumferentially along the distal Achilles tendon, posterior aspect of Kager's fat pad and throu gh the more posteromedial portion of the heel along the margin of the attachment of the plantar fasci a. This is concerning for necrotizing infection. Cortical irregularity with a 3.2 x 2.4 x 1.5 cm cr escentic avulsion fragment along the calcaneal tuberosity attachment of the Achilles tendon with mini mal displacement. Erosive change of the bone at that level with intraosseous extension of gas throug hout the calcaneal tuberosity at that level as well as more distally in keeping with osteomyelitis. There is also gas tracking through the soft tissues along the plantar and medial aspect of the heel t hrough the level of the mid to distal calcaneus extending along the abductor hallucis muscle with int ramuscular gas at that level related to extension of infection. There appears to be collection of ga s. Ill-defined fluid measuring 0.8 x 0.7 cm best seen on image 51 of the coronal reformats related t o intramuscular extension of infection/abscess at that level. Marked diffuse demineralization. Degenerative spurring of the articulations of the ankle/hind-foot a nd midfoot through the forefoot. 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 No abnormal wheat bluxation at the tarsometatarsal joints. 0.8 cm accessory navicular. Vascular calcifications. The patient was an inpatient time of dictation and the final report was faxed to the radiology depart ment at 2:30 p.m. on 11/30/2021. IMPRESSION: Cellulitis. Deep soft tissue ulceration along the posterolateral aspect of the calcanea l tuberosity at the attachment of the Achilles tendon. Extensive soft tissue gas at that level exten ding throughout the heel as well as more distally along the course of the abductor hallucis muscle at that hind-foot, concerning for necrotizing infection. Small collection of gas and fluid with suspec yohan abscess cavity as described. Mildly displaced avulsion fracture of the calcaneal attachment of the Achilles tendon with appearance consistent with pathologic fracture related to underlying calcaneal tuberosityosteomyelitis with ext ensive intraosseous gas as detailed above. Postoperative changes of the distal third toe. Marked demineralization. Degenerative changes. All CT scans are performed using dose optimization techniques as appropriate to the performed exam an d include at least one of the following: Automated exposure control, adjustment of the mA and/or kV according t o size, and the use of iterative reconstruction technique.
[2021-11-30] MEDS: LIPITOR PO SCH (20:51)
[2021-11-30] MEDS: LEVEMIR SUBCUT SCH (21:02)
[2021-12-01 05:27] LABS: HEMATOCRIT 23.2 % (42.0-52.0); HEMOGLOBIN 7.8 g/dl (14.0-18.0); MEAN CORPUSCULAR HEMOGLOBIN 28.9 pg (27.0-31.0); MEAN CORPUSCULAR HGB CONC 33.6 (31.8-35.4); MEAN CORPUSCULAR VOLUME 85.9 fl (80.0-94.0); PLATELET COUNT 340 10^3/uL (140-440); RDW COEFFICIENT OF VARIATION 13.7 % (11.6-14.8); WHITE BLOOD COUNT 25.31 K/ul (4.2-10.2)
[2021-12-01 05:45] LABS: ALANINE AMINOTRANSFERASE 23.9 U/L (0-50); ALBUMIN 2.77 g/dL (3.5-5.0); ALKALINE PHOSPHATASE 164.3 U/L (56-119); ASPARTATE AMINO TRANSFERASE 46.5 U/L (17-59); BILIRUBIN,TOTAL 0.5 mg/dL (0.2-1.3); BLOOD UREA NITROGEN 26.8 mg/dL (9-20); CALCIUM 8.31 mg/dL (8.4-10.2); CARBON DIOXIDE 15.5 mmol/L (22-30.0); CHLORIDE 107.1 mmol/L (98-107); CREATININE 2.11 mg/dL (0.60-1.10); GLUCOSE 161.7 mg/dL (74-106); POTASSIUM 3.65 mmol/L (3.5-5.1); SODIUM 133.9 mmol/L (134.5-145); TOTAL PROTEIN 6.45 g/dL (6.3-8.2)
[2021-12-01] MEDS: LASIX TAB PO SCH ×2 (05:51→16:58)
[2021-12-01] MEDS: PROTONIX PO SCH ×2 (05:51→16:58)
[2021-12-01] MEDS: PERCOCET 7.5-325 PO PRN ×3 (05:53→23:22)
[2021-12-01] MEDS: SODIUM CHLORIDE 1,000 ML IV SCH ×2 (05:54→19:51)
[2021-12-01 06:07] LABS: ANISOCYTOSIS NOT PRESENT (NOT PRESENT)
[2021-12-01 07:42] LABS: OCCULT BLOOD SAMPLE 2 NO SPECIMEN RECEIVED (NEGATIVE); OCCULT BLOOD SAMPLE 3 NO SPECIMEN RECEIVED (NEGATIVE)
[2021-12-01] MEDS: MAXIPIME 2 GM in SODIUM CHLORIDE 100ML 100 ML IV SCH ×2 (08:00→20:38)
[2021-12-01] MEDS: HUMALOG SUBCUT SCH ×2 (08:12→16:58)
[2021-12-01] MEDS: LOVENOX SUBCUT SCH (08:19)
[2021-12-01] MEDS: LOPRESSOR PO SCH ×2 (08:20→20:38)
[2021-12-01] MEDS: LYRICA PO SCH ×3 (08:20→20:38)
[2021-12-01] MEDS: PLAVIX PO SCH (08:20)
[2021-12-01] MEDS: ZESTRIL PO SCH (08:20)
[2021-12-01] MEDS: COLACE PO SCH ×2 (08:20→20:40)
[2021-12-01] MEDS: NYSTOP POWDER TP SCH ×2 (08:21→20:42)
[2021-12-01] MEDS: VANCOMYCIN 1 GRAM/200 ML PREMIX 1 GM/200 ML BAG IV SCH ×2 (09:17→09:24)
--- NOTE | 2021-12-01 14:21 | PCM.PROG ---
Date Seen by Provider: 12/01/21 Time Seen by Provider: 14:19 Subjective: pt pain improved in the groins Objective: Vitals: T=97.4 F, P=88, R=16, LW=713/64, SPO2=99 HEENT: []conjunctiva clear Neck: []supple Lungs: [] clear CVS: []RRR Abdomen: []soft and w/o rebound Extremities: []feet ulcers unchanged Neurological: []alert and oriented Skin: []warm Lab/Tests/Diagnostic Imaging: [] (1) Type 2 diabetes mellitus with left diabetic foot infection: Status: Acute Code(s): E11.628 - Type 2 diabetes mellitus with other skin complications; L08.9 - Local infection of the skin and subcutaneous tissue, unspecified SNOMED Code(s): 37275081 (2) Cellulitis of groin: Status: Acute Code(s): L03.314 - Cellulitis of groin SNOMED Code(s): 18275446 (3) Diabetes 1.5, managed as type 1: Status: Acute Code(s): E13.9 - Other specified diabetes mellitus without complications SNOMED Code(s): 279315939 (4) Type 2 diabetes mellitus with right diabetic foot infection: Status: Acute Code(s): E11.628 - Type 2 diabetes mellitus with other skin complications; L08.9 - Local infection of the skin and subcutaneous tissue, unspecified SNOMED Code(s): 89143785 (5) Anemia: Status: Acute Code(s): D64.9 - Anemia, unspecified SNOMED Code(s): 812693725 Plan: pt still waiting on a bed at [facility] for transfer care to Dr Saldana at 7pm
[2021-12-01] MEDS: LIPITOR PO SCH (20:38)
[2021-12-01] MEDS: HUMULIN R SUBCUT PRN (20:39)
[2021-12-01] MEDS: LEVEMIR SUBCUT SCH (20:57)
[2021-12-02 05:32] LABS: BASOPHILS # (AUTO) 0.1 K/uL (0-0.2); BASOPHILS % (AUTO) 0.3 % (0.0-3.0); EOSINOPHILS # (AUTO) 0.2 K/ul (0.0-0.7); EOSINOPHILS % (AUTO) 0.9 % (0.0-7.0); HEMATOCRIT 20.4 % (42.0-52.0); IMMATURE GRANULOCYTE # (AUTO) 0.3 (0.0-1.0); IMMATURE GRANULOCYTE % (AUTO) 1.3 % (0.0-5.0); LYMPHOCYTES # (AUTO) 1.9 K/uL (0.60-3.4); LYMPHOCYTES % (AUTO) 7.8 (10.0-50.0); MEAN CORPUSCULAR HEMOGLOBIN 29.3 pg (27.0-31.0); MEAN CORPUSCULAR HGB CONC 34.3 (31.8-35.4); MEAN CORPUSCULAR VOLUME 85.4 fl (80.0-94.0); MONOCYTES # (AUTO) 1.3 K/uL (0.4-2.0); MONOCYTES % (AUTO) 5.2 (0-10); NEUTROPHILS # (AUTO) 20.8 K/ul (2.0-6.9); NEUTROPHILS % (AUTO) 84.5 % (42.2-75.2); PLATELET COUNT 318 10^3/uL (140-440); RDW COEFFICIENT OF VARIATION 13.8 % (11.6-14.8); RED BLOOD COUNT 2.39 10^6/ul (4.70-6.10); WHITE BLOOD COUNT 24.58 K/ul (4.2-10.2)
[2021-12-02 05:40] LABS: ALBUMIN 2.67 g/dL (3.5-5.0); ALKALINE PHOSPHATASE 153.3 U/L (56-119); ASPARTATE AMINO TRANSFERASE 45.5 U/L (17-59); BILIRUBIN,TOTAL 0.31 mg/dL (0.2-1.3); BLOOD UREA NITROGEN 26.3 mg/dL (9-20); CALCIUM 8.2 mg/dL (8.4-10.2); CARBON DIOXIDE 15.3 mmol/L (22-30.0); CHLORIDE 107.7 mmol/L (98-107); CREATININE 2.13 mg/dL (0.60-1.10); GLUCOSE 159.3 mg/dL (74-106); POTASSIUM 3.16 mmol/L (3.5-5.1); TOTAL PROTEIN 6.23 g/dL (6.3-8.2)
[2021-12-02] MEDS: LASIX TAB PO SCH ×2 (05:45→17:20)
[2021-12-02] MEDS: PROTONIX PO SCH ×2 (05:46→17:20)
[2021-12-02 06:01] LABS: ANISOCYTOSIS 2+ (NOT PRESENT)
[2021-12-02] MEDS: SODIUM CHLORIDE 1,000 ML IV SCH ×2 (06:24→09:10)
[2021-12-02] MEDS: PLAVIX PO SCH (08:58)
[2021-12-02] MEDS: LYRICA PO SCH ×2 (08:58→16:04)
[2021-12-02] MEDS: ZESTRIL PO SCH (08:58)
[2021-12-02] MEDS: LOPRESSOR PO SCH (08:58)
[2021-12-02] MEDS: MAXIPIME 2 GM in SODIUM CHLORIDE 100ML 100 ML IV SCH (08:59)
[2021-12-02] MEDS: LOVENOX SUBCUT SCH (08:59)
[2021-12-02] MEDS: COLACE PO SCH (09:01)
[2021-12-02] MEDS: HUMALOG SUBCUT SCH ×2 (09:01→17:20)
[2021-12-02] MEDS: NYSTOP POWDER TP SCH (09:01)
[2021-12-02] MEDS: PERCOCET 7.5-325 PO PRN ×2 (09:09→16:06)
[2021-12-02] MEDS: HUMULIN R SUBCUT PRN (12:09)
--- NOTE | 2021-12-02 15:19 | PCM.DC ---
Final Diagnosis: Cellulitis, possible abscess, osteomyelitis left foot. Cellulitis right foot. T2DM with suboptimal control. Chronic kidney disease. Chronic anemia. Physical Exam Appearance: Ill-appearing Ill-appearing: Moderate Pain Distress: Mild Eyes: YASMEEN ENT: Oropharynx normal Neck: Supple Respiratory: Airway patent, Breath sounds clear and Breath sounds equal Cardiovascular: RRR and Pulses normal GI/: Soft and Nontender Musculoskeletal: Limited ROM, Limited strength and Other (Extensive cellulitis and possible abscess left foot, no overt ischemia noted. Prior toe amputations. Less extensive cellulitis right foot, no ischemia.) Skin: Warm and Dry Neurological: Sensation intact (DPN in LE), Motor intact, Alert and Oriented Psychiatric: Affect appropriate and Mood appropriate (1) Osteomyelitis of left foot: Status: Acute Code(s): M86.9 - Osteomyelitis, unspecified SNOMED Code(s): 5718078195907978 Qualifiers: Osteomyelitis type: other acute Qualified Code(s): M86.172 - Other acute osteomyelitis, left ankle and foot (2) Diabetes 1.5, managed as type 1: Status: Acute Code(s): E13.9 - Other specified diabetes mellitus without complications SNOMED Code(s): 031212899 (3) Cellulitis of right foot: Status: Acute Code(s): L03.115 - Cellulitis of right lower limb SNOMED Code(s): 948398538 (4) Anemia: Status: Acute Code(s): D64.9 - Anemia, unspecified SNOMED Code(s): 438742047 Qualifiers: Anemia type: due to chronic kidney disease (5) Chronic kidney disease: Status: Acute Code(s): N18.9 - Chronic kidney disease, unspecified SNOMED Code(s): 709859161 Qualifiers: Chronic kidney disease stage: unspecified stage Qualified Code(s): N18.9 - Chronic kidney disease, unspecified (6) Diabetic peripheral neuropathy: Status: Acute Code(s): E11.42 - Type 2 diabetes mellitus with diabetic polyneuropathy SNOMED Code(s): 367012591 Reason for Hospitalization: Cellulitis with likely abscess and osteomyelitis left foot, less extensive infections right foot. Prognosis/Condition at Discharge: Stable upon transfer for [facility]. Medications at Discharge: Ambulatory Orders Medication Instructions Recorded pregabalin 75 mg capsule (Lyrica) 75 mg PO TID 04/26/19 ergocalciferol (vitamin D2) 1,250 1,250 mcg PO QWEEK 04/19/21 mcg (50,000 unit) capsule pantoprazole 40 mg tablet,delayed 40 mg PO BID #180 tabs 08/10/21 release (Protonix) pen needle, diabetic 31 gauge x ##100 08/13/21 3/16" (TRUEplus Pen Needle) insulin aspart U-100 100 unit/mL 10 unit (0.1 mL) subcut BID #15 mL 09/13/21 (3 mL) subcutaneous pen (Novolog Flexpen U-100 Insulin aspart) docusate sodium 100 mg capsule 100 mg PO BID #60 caps 09/30/21 (Colace) clopidogrel 75 mg tablet 75 mg PO DAILY #90 tabs 10/11/21 lisinopril 40 mg tablet 40 mg PO QDAY #90 tabs 10/11/21 metoprolol tartrate 25 mg tablet 25 mg PO BID 90 days #180 tabs 10/12/21 atorvastatin 10 mg tablet (Lipitor) 80 mg PO BEDTIME 90 days #90 11/15/21 tab-caps clonidine HCl 0.1 mg tablet 0.1 mg PO DIRECTED #30 tabs 11/18/21 furosemide 20 mg tablet 20 mg PO BEDTIME 11/28/21 furosemide 20 mg tablet 40 mg PO DAILY edema 11/28/21 oxycodone-acetaminophen 7.5 mg-325 1 tab PO Q6H PRN Pain 11/28/21 mg tablet (Percocet) insulin detemir U-100 100 unit/mL 55 unit (0.55 mL) subcut 12/01/21 (3 mL) subcutaneous pen (Levemir DIRECTED #15 mL FlexTouch U-100 Insulin) Lab/Diagnostics: Laboratory Tests 11/28/21 11/28/21 11/28/21 15:30 15:30 16:45 WBC 20.95 H RBC 3.28 L Hgb 9.6 L Hct 27.4 L MCV 83.5 MCH 29.3 MCHC 35.0 RDW Coeff of Zay 13.2 Plt Count 307 Immature Gran % (Auto) 1.3 Neut % (Auto) 83.7 H Lymph % (Auto) 7.1 L [place] % (Auto) 7.7 Eos % (Auto) 0.1 Baso % (Auto) 0.1 Neut # (Auto) 17.5 H Lymph # (Auto) 1.5 [place] # (Auto) 1.6 Eos # (Auto) 0.0 Baso # (Auto) 0.0 Immature Gran # (Auto) 0.3 Neutrophils % (Manual) Band Neutrophils % Lymphocytes % (Manual) Monocytes % (Manual) Eosinophils % (Manual) Hypersegmented Neuts Platelet Estimate Anisocytosis [place] Cells Sodium 129.5 L Potassium 4.03 Chloride 96.4 L Carbon Dioxide 22.3 Anion Gap 14.83 BUN 39.9 H Creatinine 2.34 H Estimated GFR (MDRD) 29.00 BUN/Creatinine Ratio 17.05 Glucose 397.4 H Lactic Acid Calcium 8.91 Total Bilirubin 0.59 AST 50.0 ALT 18.7 Alkaline Phosphatase 166.2 H Troponin I 0.034 Total Protein 7.58 Albumin 3.64 Globulin 3.94 Albumin/Globulin Ratio 0.92 Urine Color Yellow Urine Clarity Clear Urine pH 5.5 Ur Specific [place] 1.015 Urine Protein 2+ H Urine Glucose (UA) 2+ H Urine Ketones Negative Urine Blood 2+ H Urine Nitrite Negative Urine Bilirubin Negative Urine Urobilinogen 0.2 Ur Leukocyte Esterase Negative Urine Microscopic RBC 20-30 Urine Microscopic WBC 2-5 Ur Squamous Epith Cells 0-2 Amorphous Sediment Trace Urine Bacteria 2+ Granular Casts 0-2 Stl Occult Blood (IFOB) Stool Occult Blood #2 Stool Occult Blood #3 Vancomycin Trough SARS CoV-2 RNA Rapid [place] 11/28/21 11/28/21 11/29/21 16:45 17:42 05:02 WBC 19.33 H RBC 2.69 L Hgb 7.8 L Hct 22.6 L MCV 84.0 MCH 29.0 MCHC 34.5 RDW Coeff of Zay 13.3 Plt Count 258 Immature Gran % (Auto) Neut % (Auto) Lymph % (Auto) [place] % (Auto) Eos % (Auto) Baso % (Auto) Neut # (Auto) Lymph # (Auto) [place] # (Auto) Eos # (Auto) Baso # (Auto) Immature Gran # (Auto) Neutrophils % (Manual) 72.0 Band Neutrophils % 2.0 Lymphocytes % (Manual) 12.0 Monocytes % (Manual) 9.0 Eosinophils % (Manual) 1.0 Hypersegmented Neuts 4.0 H Platelet Estimate Anisocytosis Not present [place] Cells Sodium Potassium Chloride Carbon Dioxide Anion Gap BUN Creatinine Estimated GFR (MDRD) BUN/Creatinine Ratio Glucose Lactic Acid 1.21 Calcium Total Bilirubin AST ALT Alkaline Phosphatase Troponin I Total Protein Albumin Globulin Albumin/Globulin Ratio Urine Color Urine Clarity Urine pH Ur Specific [place] Urine Protein Urine Glucose (UA) Urine Ketones Urine Blood Urine Nitrite Urine Bilirubin Urine Urobilinogen Ur Leukocyte Esterase Urine Microscopic RBC Urine Microscopic WBC Ur Squamous Epith Cells Amorphous Sediment Urine Bacteria Granular Casts Stl Occult Blood (IFOB) Stool Occult Blood #2 Stool Occult Blood #3 Vancomycin Trough SARS CoV-2 RNA Rapid [place] Negative 11/29/21 11/30/21 11/30/21 05:02 04:45 04:45 WBC 17.95 H RBC 2.70 L Hgb 7.7 L Hct 22.9 L MCV 84.8 MCH 28.5 MCHC 33.6 RDW Coeff of Zay 13.4 Plt Count 305 Immature Gran % (Auto) 1.3 Neut % (Auto) 80.7 H Lymph % (Auto) 9.1 L [place] % (Auto) 7.2 Eos % (Auto) 1.5 Baso % (Auto) 0.2 Neut # (Auto) 14.5 H Lymph # (Auto) 1.6 [place] # (Auto) 1.3 Eos # (Auto) 0.3 Baso # (Auto) 0.0 Immature Gran # (Auto) 0.2 Neutrophils % (Manual) Band Neutrophils % Lymphocytes % (Manual) Monocytes % (Manual) Eosinophils % (Manual) Hypersegmented Neuts Platelet Estimate Anisocytosis [place] Cells Sodium 132.4 L 133.0 L Potassium 3.56 3.10 L Chloride 103.4 105.7 Carbon Dioxide 19.4 L 18.9 L Anion Gap 13.16 11.50 BUN 35.8 H 30.9 H Creatinine 2.11 H 2.02 H Estimated GFR (MDRD) 32.00 34.00 BUN/Creatinine Ratio 16.96 15.29 Glucose 264.3 H D 103.0 D Lactic Acid Calcium 8.42 8.33 L Total Bilirubin AST ALT Alkaline Phosphatase Troponin I Total Protein Albumin Globulin Albumin/Globulin Ratio Urine Color Urine Clarity Urine pH Ur Specific [place] Urine Protein Urine Glucose (UA) Urine Ketones Urine Blood Urine Nitrite Urine Bilirubin Urine Urobilinogen Ur Leukocyte Esterase Urine Microscopic RBC Urine Microscopic WBC Ur Squamous Epith Cells Amorphous Sediment Urine Bacteria Granular Casts Stl Occult Blood (IFOB) Stool Occult Blood #2 Stool Occult Blood #3 Vancomycin Trough SARS CoV-2 RNA Rapid [place] 11/30/21 12/01/21 12/01/21 13:40 05:13 05:13 WBC 25.31 H D RBC 2.70 L Hgb 7.8 L Hct 23.2 L MCV 85.9 MCH 28.9 MCHC 33.6 RDW Coeff of Zay 13.7 Plt Count 340 Immature Gran % (Auto) Neut % (Auto) Lymph % (Auto) [place] % (Auto) Eos % (Auto) Baso % (Auto) Neut # (Auto) Lymph # (Auto) [place] # (Auto) Eos # (Auto) Baso # (Auto) Immature Gran # (Auto) Neutrophils % (Manual) 89.0 H Band Neutrophils % 3.0 Lymphocytes % (Manual) 6.0 L Monocytes % (Manual) 2.0 Eosinophils % (Manual) Hypersegmented Neuts Platelet Estimate Anisocytosis Not present [place] Cells Sodium 133.9 L Potassium 3.65 Chloride 107.1 H Carbon Dioxide 15.5 L Anion Gap 14.95 BUN 26.8 H Creatinine 2.11 H Estimated GFR (MDRD) 32.00 BUN/Creatinine Ratio 12.70 Glucose 161.7 H Lactic Acid Calcium 8.31 L Total Bilirubin 0.50 AST 46.5 ALT 23.9 Alkaline Phosphatase 164.3 H Troponin I Total Protein 6.45 Albumin 2.77 L Globulin 3.68 Albumin/Globulin Ratio 0.75 Urine Color Urine Clarity Urine pH Ur Specific [place] Urine Protein Urine Glucose (UA) Urine Ketones Urine Blood Urine Nitrite Urine Bilirubin Urine Urobilinogen Ur Leukocyte Esterase Urine Microscopic RBC Urine Microscopic WBC Ur Squamous Epith Cells Amorphous Sediment Urine Bacteria Granular Casts Stl Occult Blood (IFOB) Positive Stool Occult Blood #2 No specimen received Stool Occult Blood #3 No specimen received Vancomycin Trough SARS CoV-2 RNA Rapid [place] 12/01/21 12/02/21 12/02/21 08:29 05:21 05:21 WBC 24.58 H RBC 2.39 L Hgb 7.0 L Hct 20.4 L MCV 85.4 MCH 29.3 MCHC 34.3 RDW Coeff of Zay 13.8 Plt Count 318 Immature Gran % (Auto) 1.3 Neut % (Auto) 84.5 H Lymph % (Auto) 7.8 L [place] % (Auto) 5.2 Eos % (Auto) 0.9 Baso % (Auto) 0.3 Neut # (Auto) 20.8 H Lymph # (Auto) 1.9 [place] # (Auto) 1.3 Eos # (Auto) 0.2 Baso # (Auto) 0.1 Immature Gran # (Auto) 0.3 Neutrophils % (Manual) Band Neutrophils % Lymphocytes % (Manual) Monocytes % (Manual) Eosinophils % (Manual) Hypersegmented Neuts Platelet Estimate Anisocytosis 2+ [place] Cells Sodium Potassium Chloride Carbon Dioxide Anion Gap BUN Creatinine Estimated GFR (MDRD) BUN/Creatinine Ratio Glucose Lactic Acid Calcium Total Bilirubin AST ALT Alkaline Phosphatase Troponin I Total Protein Albumin Globulin Albumin/Globulin Ratio Urine Color Urine Clarity Urine pH Ur Specific [place] Urine Protein Urine Glucose (UA) Urine Ketones Urine Blood Urine Nitrite Urine Bilirubin Urine Urobilinogen Ur Leukocyte Esterase Urine Microscopic RBC Urine Microscopic WBC Ur Squamous Epith Cells Amorphous Sediment Urine Bacteria Granular Casts Stl Occult Blood (IFOB) Stool Occult Blood #2 Stool Occult Blood #3 Vancomycin Trough 32.038 H* 23.229 H* D SARS CoV-2 RNA Rapid [place] 12/02/21 05:21 WBC RBC Hgb Hct MCV MCH MCHC RDW Coeff of Zay Plt Count Immature Gran % (Auto) Neut % (Auto) Lymph % (Auto) [place] % (Auto) Eos % (Auto) Baso % (Auto) Neut # (Auto) Lymph # (Auto) [place] # (Auto) Eos # (Auto) Baso # (Auto) Immature Gran # (Auto) Neutrophils % (Manual) Band Neutrophils % Lymphocytes % (Manual) Monocytes % (Manual) Eosinophils % (Manual) Hypersegmented Neuts Platelet Estimate Anisocytosis [place] Cells Sodium 134.0 L Potassium 3.16 L Chloride 107.7 H Carbon Dioxide 15.3 L Anion Gap 14.16 BUN 26.3 H Creatinine 2.13 H Estimated GFR (MDRD) 32.00 BUN/Creatinine Ratio 12.34 Glucose 159.3 H Lactic Acid Calcium 8.20 L Total Bilirubin 0.31 AST 45.5 ALT 21.0 Alkaline Phosphatase 153.3 H Troponin I Total Protein 6.23 L Albumin 2.67 L Globulin 3.56 Albumin/Globulin Ratio 0.75 Urine Color Urine Clarity Urine pH Ur Specific [place] Urine Protein Urine Glucose (UA) Urine Ketones Urine Blood Urine Nitrite Urine Bilirubin Urine Urobilinogen Ur Leukocyte Esterase Urine Microscopic RBC Urine Microscopic WBC Ur Squamous Epith Cells Amorphous Sediment Urine Bacteria Granular Casts Stl Occult Blood (IFOB) Stool Occult Blood #2 Stool Occult Blood #3 Vancomycin Trough FINDINGS: There is subcutaneous edema and ill-defined subcutaneous fluid throughout the foot and ankle most extensive at the level of the posterior ankle/heel. There is deep soft tissue ulceration along the posterolateral aspect of the calcaneal tuberosity extending along the attachment of the Achilles tendon. There is extensive soft tissue gas at the level of soft tissue ulceration and extending over a region measuring 7.7 cm (cranial - caudal) by 4.6 x 2.8 cm (transverse) into the deep soft tissues circumferentially along the distal Achilles tendon, posterior aspect of Kager's fat pad and through the more posteromedial portion of the heel along the margin of the attachment of the plantar fascia. This is concerning for necrotizing infection. Cortical irregularity with a 3.2 x 2.4 x 1.5 cm crescentic avulsion fragment along the calcaneal tuberosity attachment of the Achilles tendon with minimal displacement. Erosive change of the bone at that level with intraosseous extension of gas throughout the calcaneal tuberosity at that level as well as more distally in keeping with osteomyelitis. There is also gas tracking through the soft tissues along the plantar and medial aspect of the heel through the level of the mid to distal calcaneus extending along the abductor hallucis muscle with intramuscular gas at that level related to extension of infection. There appears to be collection of gas. Ill-defined fluid measuring 0.8 x 0.7 cm best seen on image 51 of the coronal reformats related to intramuscular extension of infection/abscess at that level. Marked diffuse demineralization. Degenerative spurring of the articulations of the ankle/hind-foot and midfoot through the forefoot. 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 No abnormal subluxation at the tarsometatarsal joints. 0.8 cm accessory navicular. Vascular calcifications. The patient was an inpatient time of dictation and the final report was faxed to the radiology department at 2:30 p.m. on 11/30/2021. IMPRESSION: Cellulitis. Deep soft tissue ulceration along the posterolateral aspect of the calcaneal tuberosity at the attachment of the Achilles tendon. Extensive soft tissue gas at that level extending throughout the heel as well as more distally along the course of the abductor hallucis muscle at that hind- foot, concerning for necrotizing infection. Small collection of gas and fluid with suspected abscess cavity as described. Mildly displaced avulsion fracture of the calcaneal attachment of the Achilles tendon with appearance consistent with pathologic fracture related to underlying calcaneal tuberosityosteomyelitis with extensive intraosseous gas as detailed above. Postoperative changes of the distal third toe. Marked demineralization. Degenerative changes. All CT scans are performed using dose optimization techniques as appropriate to the performed exam and include at least one of the following: Automated exposure control, adjustment of the mA and/or kV according to size, and the use of iterative reconstruction technique. SARS CoV-2 RNA Rapid [place] MPRESSION: 1. Significant generalized demineralization without visible fracture. 2. Postop changes. Education Provided to Patient and Family: Per nursing staff Follow-ups: Transfer to [facility], hospitalist accepting is austin Balbuena. Discharge Disposition: Transfer Hospital Course: Admitted with acute on chronic infected diabetic feet, worse on the left. He had been going to the wound clinic at [facility] and seeing Dr. Servin, [employer] in [place], [place]. Prior partial toe amputations. Poor historian re: recent abx use. Diabetic with suboptimal control. DPN. Tx with IV cefepime and vanc. here, pharmacist dosed, improved some initially, then WBC elevated to around 25 K past few days. Chronic anemia with Hb in 7 range. Blood sugar controlled as best as possible, patient liked to dictate his own insulin doses. Patient was on a wait list for a bed at [facility] even before leaving the ER here. He had refused transfer elsewhere, even as we explained the foot infection was getting worse. He finally agreed to transfer after nursing staff contacted the foot in [place] and her recommendation for transfer obtained, agreeing that he probably needs a surgical procedure. Some minor groin cellulitis has resolved. Plan: Transfer via EMS to [facility].
--- NOTE | 2021-12-02 16:39 | PCM.DC ---
Final Diagnosis: (1) Osteomyelitis of left foot: Status: Acute Code(s): M86.9 - Osteomyelitis, unspecified SNOMED Code(s): 0593861911460076 Qualifiers: Osteomyelitis type: other acute Qualified Code(s): M86.172 - Other acute osteomyelitis, left ankle and foot (2) Diabetes 1.5, managed as type 1: Status: Acute Code(s): E13.9 - Other specified diabetes mellitus without complications SNOMED Code(s): 585165937 (3) Cellulitis of right foot: Status: Acute Code(s): L03.115 - Cellulitis of right lower limb SNOMED Code(s): 169652668 (4) Anemia: Status: Acute Code(s): D64.9 - Anemia, unspecified SNOMED Code(s): 561633999 Qualifiers: Anemia type: due to chronic kidney disease (5) Chronic kidney disease: Status: Acute Code(s): N18.9 - Chronic kidney disease, unspecified SNOMED Code(s): 983368648 Qualifiers: Chronic kidney disease stage: unspecified stage Qualified Code(s): N18.9 - Chronic kidney disease, unspecified (6) Diabetic peripheral neuropathy: Status: Acute Code(s): E11.42 - Type 2 diabetes mellitus with diabetic polyneuropathy SNOMED Code(s): 470031358 Medications at Discharge: Ambulatory Orders Medication Instructions Recorded pregabalin 75 mg capsule (Lyrica) 75 mg PO TID 04/26/19 ergocalciferol (vitamin D2) 1,250 1,250 mcg PO QWEEK 04/19/21 mcg (50,000 unit) capsule pantoprazole 40 mg tablet,delayed 40 mg PO BID #180 tabs 08/10/21 release (Protonix) pen needle, diabetic 31 gauge x ##100 08/13/21/16" (TRUEplus Pen Needle) insulin aspart U-100 100 unit/mL 10 unit (0.1 mL) subcut BID #15 mL 09/13/21 (3 mL) subcutaneous pen (Novolog Flexpen U-100 Insulin aspart) docusate sodium 100 mg capsule 100 mg PO BID #60 caps 09/30/21 (Colace) clopidogrel 75 mg tablet 75 mg PO DAILY #90 tabs 10/11/21 lisinopril 40 mg tablet 40 mg PO QDAY #90 tabs 10/11/21 metoprolol tartrate 25 mg tablet 25 mg PO BID 90 days #180 tabs 10/12/21 atorvastatin 10 mg tablet (Lipitor) 80 mg PO BEDTIME 90 days #90 11/15/21 tab-caps clonidine HCl 0.1 mg tablet 0.1 mg PO DIRECTED #30 tabs 11/18/21 furosemide 20 mg tablet 20 mg PO BEDTIME 11/28/21 furosemide 20 mg tablet 40 mg PO DAILY edema 11/28/21 oxycodone-acetaminophen 7.5 mg-325 1 tab PO Q6H PRN Pain 11/28/21 mg tablet (Percocet) insulin detemir U-100 100 unit/mL 55 unit (0.55 mL) subcut 12/01/21 (3 mL) subcutaneous pen (Levemir DIRECTED #15 mL FlexTouch U-100 Insulin)
[2021-12-02 18:21] VITALS: BP 166/80; TEMP 98.2
[2021-12-05] MEDS ORDERED: DRISDOL PO SCH (09:00)
== END 2021-12-02 19:31 | disposition short-term general hospital (02) | DRG 540 ==
LOC: ED 15:03 → MEDSURG A 15:03 → OBSVTOIN 20:20 → MEDSURG A 20:20
PROVIDERS: ADMIT Emergency Medicine; ATTEND Emergency Medicine
DX: Z20.822 Contact with and (suspected) exposure to COVID-19; R53.1 Weakness; Z51.81 Encounter for therapeutic drug level monitoring; L08.9 Local infection of the skin and subcutaneous tissue, unspecified; Z79.899 Other long term (current) drug therapy; N18.9 Chronic kidney disease, unspecified; E11.628 Type 2 diabetes mellitus with other skin complications; D64.9 Anemia, unspecified; L03.115 Cellulitis of right lower limb; Z74.09 Other reduced mobility; L03.314 Cellulitis of groin; E11.42 Type 2 diabetes mellitus with diabetic polyneuropathy; M86.172 Other acute osteomyelitis, left ankle and foot